=== PATIENT | female | born 1935 | race Caucasian/White ===

== ENCOUNTER 2017-09-12 10:49 | Inpatient (IN) | payer BC, OTHER ==
[~2017-09-12] VITALS: Ht 162.6 cm; Wt 67.7 kg
[2017-09-12] MEDS ORDERED: GLUC1TAB94 PO (13:05)
[2017-09-12 13:14] LABS: BASO % 0.3 %; BASO ABS # 0.04 K/uL (0-0.2); EOS % 0.6 %; EOS ABS # 0.08 K/uL (0-0.5); HEMATOCRIT 33.7 % (37-47); HEMOGLOBIN 11.2 g/dL (12.0-16.0); IG# 0.07 K/uL (0.00-0.02); LYMPH % 10.1 %; LYMPH ABS # 1.35 K/uL (1.2-3.4); MEAN CELL VOLUME 82.4 fL (80-100); MEAN CORPUSCULAR HEMOGLOBIN 27.4 pg (25-34); MEAN CORPUSCULAR HGB CONC 33.2 g/dl (32-36); MEAN PLATELET VOLUME 10.2 fL (7.4-10.4); MONO % 4.6 %; MONO ABS # 0.62 K/uL (0.11-0.59); NEUT % 83.9 %; NEUT ABS # 11.21 K/uL (1.4-6.5); PLATELET COUNT 320 K/uL (130-400); RED CELL DISTRIBUTION WIDTH CV 15.6 % (11.5-14.5); RED CELL DISTRIBUTION WIDTH SD 46.5 fL (36.4-46.3); WHITE BLOOD COUNT 13.37 K/uL (4.8-10.8)
[2017-09-12 13:36] LABS: ALBUMIN 2.9 gm/dl (3.4-5.0); CALCIUM 9.1 mg/dl (8.5-10.1); CREATININE 0.96 mg/dl (0.60-1.20); POTASSIUM 3.6 mmol/L (3.5-5.1)
[2017-09-12 13:47] LABS: TOTAL PROTEIN 7.4 gm/dl (6.4-8.2)
--- NOTE | 2017-09-12 14:11 | DIAGNOSTIC IMAGING REPORT ---
ULTRASOUND LEFT LOWER EXTREMITY VENOUS CLINICAL HISTORY: Left calf pain and swelling. COMPARISON STUDY: No priors. TECHNIQUE: Real-time, grayscale, and color Doppler sonography of the deep veins of the left lower extremity was performed from the inguinal crease to the calf. Compression and augmentation were utilized. FINDINGS: There is nearly occlusive deep venous thrombosis identified within the mid to distal superficial femoral vein, the popliteal vein, and extending into the calf within branches of the anterior tibial, posterior tibial, and peroneal veins. The common femoral and proximal superficial femoral vein are patent and normally compressible. The greater saphenous vein and the profunda femoris vein at the junction with the common femoral vein are clear. IMPRESSION: Extensive left lower extremity deep venous thrombosis as above. Electronically signed by: Lul Fu M.D. 09/12/2017 2:10 PM Dictated Date/Time: 09/12/2017 2:09 PM
[2017-09-12] MEDS ORDERED: OPTIRAY 320 IV PRN (14:15)
[2017-09-12] MEDS ORDERED: HEPARIN SOD 5000 UNIT/0.5 ML CARP IV STA (14:32)
--- NOTE | 2017-09-12 14:32 | DIAGNOSTIC IMAGING REPORT ---
(CHEST FOR PE) ANGIO WITH CLINICAL HISTORY: 82 years-old Female presenting with ^sob, elevated dimer. TECHNIQUE: Multidetector CT angiography of the chest was performed after administration of intravenous contrast. 3-D volumetric and/or maximum intensity projection (MIP) images were subsequently reconstructed for review. IV contrast: 81 mL of Optiray 320. A dose lowering technique was used consistent with the principles of ALARA (as low as reasonably achievable). COMPARISON: None. CT DOSE (mGy.cm): The estimated cumulative dose is 214.67 mGy.cm. FINDINGS: [employer] topogram: Unremarkable. Pulmonary vasculature: The study is adequate for assessment of the pulmonary vascular tree. Extensive bilateral lobar and segmental pulmonary emboli affecting every lobe. Prominent thrombus in the right interlobar artery. No thrombus in the main pulmonary artery. Main pulmonary artery is not enlarged. However, flattening of the interventricular septum. No intracardiac filling defect. No reflux of contrast into the hepatic veins. Remaining chest: On soft tissue windows, normal thyroid and thoracic inlet. No axillary, supraclavicular, hilar, or mediastinal lymphadenopathy. Atherosclerosis of the aorta. Normal heart size. Trace pericardial effusion. No pleural effusion. Calcifications in the spleen likely indicate prior granulomatous infection. Hypodensity at the right hepatic dome indeterminate but likely hepatic cyst or hamartoma. On lung windows, consolidation in the superior segment of the right lower lobe, which is peripheral. Additional dependent reticular and groundglass opacities in the lower lobes likely atelectasis. Calcified granuloma noted in the right lower lobe. Biapical scarring. Focal groundglass opacity peripherally in the superior segment of the lingula (series 4 image 132). Calcified granuloma also noted in the left lower lobe. Central airways patent. On bone windows, degenerative changes of the spine. IMPRESSION: 1. Extensive bilateral pulmonary embolus burden involving every lobe are artery and extensively in the segmental arteries. Flattening of the interventricular septum raises concern for right heart strain. 2. Focal consolidation in the superior segment of the right lower lobe raises concern for developing infarct. Minimal groundglass peripheral opacity in the lingula may also represent developing infarct. These findings were discussed with Dr. Hinson by Dr. Ward on 09/12/2017 2:26 PM. Electronically signed by: Shorty Ward M.D. 09/12/2017 2:30 PM Dictated Date/Time: 09/12/2017 2:23 PM
[2017-09-12] MEDS: HEPARIN 25,000 UNIT/500ML D5W 500 ML IV SCH (14:44)
[2017-09-12] MEDS ORDERED: MAGNESIUM HYDROXIDE SUSP 30 ML UDC PO PRN (15:00)
[2017-09-12] MEDS ORDERED: MoRPHine SULFATE 2 MG/ML CARP IV PRN (15:00)
[2017-09-12] MEDS ORDERED: ACETAMINOPHEN 325 MG TAB PO PRN (15:00)
[2017-09-12] MEDS ORDERED: ONDANSETRON INJ 2 MG/ML 2 ML VIAL IV PRN (15:00)
[2017-09-12] MEDS ORDERED: ALUMINUM/MAGNESIUM/SIMETH (MAALOX MAX) 30 ML UDC PO PRN (15:00)
[2017-09-12] MEDS ORDERED: POLYETHYLENE (MIRALAX) 17 GM PACK PO PRN (15:00)
[2017-09-12] MEDS ORDERED: NITROGLYCERIN 0.4 MG SL PER TAB CHARGE SL PRN (15:00)
--- NOTE | 2017-09-12 15:17 | History and Physical ---
History & Physical Date & Time of Service: Sep 12, 2017 at 15:05 Chief Complaint: Swelling Of Leg Primary Care Physician: Tegan Persaud M.D. History of Present Illness Source: patient, family (daughters at bedside), clinic records, hospital records Patient is a pleasant 82 y/o female, with no significant PMHx, who presented to the ED from PCP office due to LLE swelling. Roughly 3 weeks ago, patient was doing water aerobics. Shortly after, she noticed LLE calf pain. She thought maybe she pulled a muscle. She continued to stay active through water aerobics and bowling- she thought the minimal improvement in LLE pain was still due to a pulled muscle. On Monday, she started to notice dyspnea on exertion. Her daughters prompted her to seek medical attention today. She notes decreased appetite over the last few weeks. Denies any PMHx. Denies family history of blood clots. Denies any recent long travels or injuries to [facility]. Patient denies any fever, chills, sweats, lightheadedness, dizziness, vision changes, CP, palpitations, edema, wheezing, cough, abdominal pain, nausea, vomiting, diarrhea , urinary symptoms, melena, numbness/tingling, weakness, joint pain, anxiety/ depression, active bleeding, or new skin discoloration/changes. Past Medical/Surgical History Medical Problems: None Surgical history: Thyroid cyst removal Family History FH: diabetes mellitus Social History Smoking Status: Never Smoker Alcohol Use: none Allergies Coded Allergies: No Known Allergies (Unverified , 09/12/17) Home Medications Scheduled Jkdnikkwcnm-Ijyqejmdcay-Qmkgrw ([employer] Ad), 1 TAB PO QAM Physical Exam Vital Signs Date Time Temp Pulse Resp B/P (MAP) Pulse Ox O2 Delivery O2 Flow Rate FiO2 09/12/17 14:49 96 18 159/99 92 Room Air 09/12/17 12:58 80 18 138/75 97 Room Air 09/12/17 11:01 36.6 115 20 145/79 97 Room Air General Appearance: no apparent distress Head: normocephalic, atraumatic Eyes: normal inspection, PERRL ENT: hearing grossly normal Neck: supple Respiratory/Chest: lungs clear, no respiratory distress, no accessory muscle use Cardiovascular: regular rate, rhythm Abdomen/GI: normal bowel sounds, non tender, soft Back: normal inspection Extremities/Musculoskelatal: + calf tenderness (LLE), + swelling (+1 pitting edema of LLE ) Neurologic/Psych: alert, normal mood/affect, oriented x 3 Skin: normal color, warm/dry, no rash Diagnostics Laboratory Results Results Past 24 Hours Test 09/12/17 12:45 09/12/17 12:55 Range/Units White Blood Count 13.37 4.8-10.8 K/uL Red Blood Count 4.09 4.2-5.4 M/uL Hemoglobin 11.2 12.0-16.0 g/dL Hematocrit 33.7 37-47 % Mean Corpuscular Volume 82.4 80-100 fL Mean Corpuscular Hemoglobin 27.4 25-34 pg Mean Corpuscular Hemoglobin Concent 33.2 32-36 g/dl Platelet Count 320 130-400 K/uL Mean Platelet Volume 10.2 7.4-10.4 fL Neutrophils (%) (Auto) 83.9 % Lymphocytes (%) (Auto) 10.1 % Monocytes (%) (Auto) 4.6 % Eosinophils (%) (Auto) 0.6 % Basophils (%) (Auto) 0.3 % Neutrophils # (Auto) 11.21 1.4-6.5 K/uL Lymphocytes # (Auto) 1.35 1.2-3.4 K/uL Monocytes # (Auto) 0.62 0.11-0.59 K/uL Eosinophils # (Auto) 0.08 0-0.5 K/uL Basophils # (Auto) 0.04 0-0.2 K/uL RDW Standard Deviation 46.5 36.4-46.3 fL RDW Coefficient of Variation 15.6 11.5-14.5 % Immature Granulocyte % (Auto) 0.5 % Immature Granulocyte # (Auto) 0.07 0.00-0.02 K/uL Prothrombin Time 10.9 9.0-12.0 SECONDS Prothromb Time International Ratio 1.0 0.9-1.1 D-Dimer 4670 0-500 ug/L FEU Sodium Level 131 136-145 mmol/L Potassium Level 3.6 3.5-5.1 mmol/L Chloride Level 97 98-107 mmol/L Carbon Dioxide Level 25 21-32 mmol/L Anion Gap 9.0 3-11 mmol/L Blood Urea Nitrogen 8 7-18 mg/dl Creatinine 0.96 0.60-1.20 mg/dl Est Creatinine Clear Calc Drug Dose 44.4 ml/min Estimated GFR () 64.7 Estimated GFR (Non- 55.9 BUN/Creatinine Ratio 8.5 10-20 Random Glucose 105 70-99 mg/dl Calcium Level 9.1 8.5-10.1 mg/dl Magnesium Level 2.5 1.8-2.4 mg/dl Total Bilirubin 0.4 0.2-1 mg/dl Aspartate Amino Transf (AST/SGOT) 23 15-37 U/L Alanine Aminotransferase (ALT/SGPT) 19 12-78 U/L Alkaline Phosphatase 81 45-117 U/L Troponin I 0.018 0-0.045 ng/ml Pro-B-Type Natriuretic Peptide 4214 0-1800 pg/ml Total Protein 7.4 6.4-8.2 gm/dl Albumin 2.9 3.4-5.0 gm/dl Globulin 4.5 2.5-4.0 gm/dl Albumin/Globulin Ratio 0.6 0.9-2 Thyroid Stimulating Hormone (TSH) 1.780 0.300-4.500 uIu/ml Urine Color YELLOW Urine Appearance CLEAR CLEAR Urine pH 7.5 4.5-7.5 Urine Specific [place] 1.007 1.000-1.030 Urine Protein NEG NEG Urine Glucose (UA) NEG NEG Urine Ketones NEG NEG Urine Occult Blood NEG NEG Urine Nitrite NEG NEG Urine Bilirubin NEG NEG Urine Urobilinogen NEG NEG Urine Leukocyte Esterase TRACE NEG Urine WBC (Auto) 1-5 0-5 /hpf Urine RBC (Auto) 0-4 0-4 /hpf Urine Hyaline Casts (Auto) 1-5 0-5 /lpf Urine Epithelial Cells (Auto) 0-5 0-5 /lpf Urine Bacteria (Auto) NEG NEG Diagnostic Radiology (CHEST FOR PE) ANGIO WITH CLINICAL HISTORY: 82 years-old Female presenting with ^sob, elevated dimer. TECHNIQUE: Multidetector CT angiography of the chest was performed after administration of intravenous contrast. 3-D volumetric and/or maximum intensity projection (MIP) images were subsequently reconstructed for review. IV contrast: 81 mL of Optiray 320. A dose lowering technique was used consistent with the principles of ALARA (as low as reasonably achievable). COMPARISON: None. CT DOSE (mGy.cm): The estimated cumulative dose is 214.67 mGy.cm. FINDINGS: [employer] topogram: Unremarkable. Pulmonary vasculature: The study is adequate for assessment of the pulmonary vascular tree. Extensive bilateral lobar and segmental pulmonary emboli affecting every lobe. Prominent thrombus in the right interlobar artery. No thrombus in the main pulmonary artery. Main pulmonary artery is not enlarged. However, flattening of the interventricular septum. No intracardiac filling defect. No reflux of contrast into the hepatic veins. Remaining chest: On soft tissue windows, normal thyroid and thoracic inlet. No axillary, supraclavicular, hilar, or mediastinal lymphadenopathy. Atherosclerosis of the aorta. Normal heart size. Trace pericardial effusion. No pleural effusion. Calcifications in the spleen likely indicate prior granulomatous infection. Hypodensity at the right hepatic dome indeterminate but likely hepatic cyst or hamartoma. On lung windows, consolidation in the superior segment of the right lower lobe, which is peripheral. Additional dependent reticular and groundglass opacities in the lower lobes likely atelectasis. Calcified granuloma noted in the right lower lobe. Biapical scarring. Focal groundglass opacity peripherally in the superior segment of the lingula (series 4 image 132). Calcified granuloma also noted in the left lower lobe. Central airways patent. On bone windows, degenerative changes of the spine. IMPRESSION: 1. Extensive bilateral pulmonary embolus burden involving every lobe are artery and extensively in the segmental arteries. Flattening of the interventricular septum raises concern for right heart strain. 2. Focal consolidation in the superior segment of the right lower lobe raises concern for developing infarct. Minimal groundglass peripheral opacity in the lingula may also represent developing infarct. These findings were discussed with Dr. Hinson by Dr. Ward on 09/12/2017 2:26 PM. Electronically signed by: Shorty Ward M.D. 09/12/2017 2:30 PM Dictated Date/Time: 09/12/2017 2:23 PM The status of this report is Signed. Draft = Not yet reviewed or approved by Radiologist. Signed = Reviewed and approved by Radiologist. ULTRASOUND LEFT LOWER EXTREMITY VENOUS CLINICAL HISTORY: Left calf pain and swelling. COMPARISON STUDY: No priors. TECHNIQUE: Real-time, grayscale, and color Doppler sonography of the deep veins of the left lower extremity was performed from the inguinal crease to the calf. Compression and augmentation were utilized. FINDINGS: There is nearly occlusive deep venous thrombosis identified within the mid to distal superficial femoral vein, the popliteal vein, and extending into the calf within branches of the anterior tibial, posterior tibial, and peroneal veins. The common femoral and proximal superficial femoral vein are patent and normally compressible. The greater saphenous vein and the profunda femoris vein at the junction with the common femoral vein are clear. IMPRESSION: Extensive left lower extremity deep venous thrombosis as above. Electronically signed by: Lul Fu M.D. 09/12/2017 2:10 PM Dictated Date/Time: 09/12/2017 2:09 PM The status of this report is Signed. Draft = Not yet reviewed or approved by Radiologist. Signed = Reviewed and approved by Radiologist. EKG REBECCA STEPHENS ID:[id number] 12-SEP-2017 12:31:24 [facility] Poor data quality, interpretation may be adversely affected Normal sinus rhythm Normal ECG No previous ECGs available 25mm/s 10mm/mV 150Hz 8.0 SP2 12SL 241 BERNIE: 0 Referred by: Referred Self Unconfirmed Vent. rate 84 BPM NM interval 158 ms QRS duration 88 ms QT/QTc 366/432 ms P-R-T axes 85 86 29 1935 (82 yr) Female Room: Loc:15 Minute Clerk:BINH Ortiz ind: Impression Assessment and Plan Patient is a pleasant 82 y/o female, with no significant PMHx, who presented to the ED from PCP office due to LLE swelling. LLE DVT, extensive bilateral PE: - Admit to tele for cardiac monitoring - Trend cardiac enzymes - Obtain ECHO to asses for R heart strain - IV Heparin gtt with eventual transition to oral anticoagulation if remains hemodynamically stable - Will keep NPO after midnight in case surgical intervention required - Consult vascular surgery, appreciate recommendations Code status: LEVEL I, FULL Dispo: From home- CM consulted Resuscitation Status LEVEL I, FULL VTE Prophylaxis Will order VTE Prophylaxis: Yes History Patient seen and examined, chart reviewed, case discussed with JAYANT Schroeder and I agree with her assessment and plan as documented above. Briefly, patient is an 82yo C female with no significant past medical or surgical history who found to have extensive nearly occlusive DVT of the LLE as well as bilateral PEs. Patient feeling well. Complaining of some calf tightness and AUGUSTINE. Otherwise no complaints. She was started on a heparin gtt in the ER. On physical exam she is afebrile, HD stable, NAD. HEENT exam is unremarkable. Heart +S1/S2, regular, no m/r/g, lungs are clear, abdomen is benign, LLE with edema and warmth to the knee. Labs are significant for mild leukocytosis at 13.37, Hg=11.2 and Hct=33.7. Elevated d-dimer at 4670 and BNP at 4214. Imaging revealed extensive clot burden in bilateral pulmonary vasculature as well as LLE. Concern for flattening of the interventricular septum. EKG with NSR 84bpm, normal axis and intervals, some T wave flattening and inversion in V1-V4 which could be indicative of right heart strain. Impression 82yo female with no significant past medical or surgical history found with large LLE DVT and bilateral PEs with question of right heart strain. Presently asymptomatic and HD stable. -Check 2D echo, trend troponins, continue heparin gtt, Vascular surgery consult , low threshold for lytics should she decompensate. Remainder of plan as above
[2017-09-12 16:50] VITALS: BP 164/98; PULSE 130; TEMP 36.7; O2SAT 92
[2017-09-12 17:29] VITALS: BP 164/98; PULSE 126; TEMP 36.7; O2SAT 92; Ht 162.6 cm; Wt 67.7 kg
--- NOTE | 2017-09-12 17:30 | ECHOCARDIOGRAM REPORT ---
*NOTICE TO RECEIVING CONSTITUTION PARTY AGENCY This information is strictly Confidential and protected under [place] law. [place] law prohibits you from making any further disclosure of this information unless further disclosure is expressly permitted by the written consent of the person to whom it pertains or is authorized by law. A general authorization for the release of medical or other information is not sufficient for this purpose. Hospital accepts no responsibility if the information is made available to any other person, INCLUDING THE PATIENT. Interpretation Summary * Name: REBECCA STEPHENS Study Date: 09/12/2017 03:31 PM BP: 159/99 mmHg * Patient Location: C.EDB HR: 89 * : 1935 (M/d/yyyy) Gender: Female Height: 64 in * Age: 82 yrs Ethnicity: [place] Weight: 150 lb * Ordering Physician: Shaista Schroeder * Referring Physician: Self, Referred * Performed By: Juliann Quiñones RCS * * Reason For Study: PE / RIGHT HEART STRAIN * BSA: 1.7 m2 * -- Conclusions -- * 1. Normal LV size. Borderline concentric LVH. * 2. Normal LV systolic function. LVEF 60-65%. Flattened septum consistent with RV volume overload. * 3. Normal RV size normal. RV function normal by TAPSE but RV free wall appears hypokinetic. * 4. Mild TR. PASP < 25 mmHg. RA 3 mmHg * 5. Small pericardial effusion without signs of tamponade. * 6. No prior studies for comparison. Procedure Details * A complete two-dimensional transthoracic echocardiogram was performed (2D, M-mode, Doppler and color flow Doppler). Left Ventricle * The left ventricle is grossly normal size. * There is borderline concentric left ventricular hypertrophy. * Ejection Fraction = 60-65%. * Flattened septum is consistent with RV volume overload. Right Ventricle * The right ventricle is grossly normal size. * The right ventricular systolic function is normal as assessed by tricuspid annular plane systolic excursion (TAPSE) (normal >1.5 cm). Atria * The left atrial size is normal. * The right atrium is mildly dilated. * Doppler suggests right to left interatrial shunt. Mitral Valve * The mitral valve is grossly normal. * There is no mitral valve stenosis. * There is trace mitral regurgitation. Tricuspid Valve * There is no tricuspid stenosis. * There is mild tricuspid regurgitation. Aortic Valve * The aortic valve opens well. * The aortic valve is trileaflet. * No hemodynamically significant valvular aortic stenosis. * There is no significant aortic regurgitation. Pulmonic Valve * The pulmonary valve is inadequately visualized, but the Doppler data is adequate for interpretation. * Pulmonic stenosis is absent. * Trace pulmonic valvular regurgitation. Pericardium/Pleural * Small pericardial effusion. * There are no echocardiographic indications of cardiac tamponade. Right Ventricle * RV free wall hypokinetic. Great Vessels * Normal inferior vena cava size and collapsability with sniff indicates a normal right atrial pressure of 3 mmHg MMode 2D Measurements and Calculations IVSd 1.1 cm IVSs 1.5 cm LVIDd 3.2 cm LVIDs 2.3 cm LVPWd 0.94 cm LVPWs 1.2 cm IVS/LVPW 1.2 FS 29.9 % EDV(Teich) 42.5 ml ESV(Teich) 17.7 ml EF(Teich) 58.3 % EDV(cubed) 34.3 ml ESV(cubed) 11.8 ml EF(cubed) 65.5 % % IVS thick 31.9 % % LVPW thick 22.3 % LV mass(C)d 96.0 grams LV mass(C)dI 55.5 grams/m\S\2 LV mass(C)s 88.4 grams LV mass(C)sI 51.1 grams/m\S\2 SV(Teich) 24.8 ml SI(Teich) 14.3 ml/m\S\2 SV(cubed) 22.5 ml SI(cubed) 13.0 ml/m\S\2 Ao root diam 2.7 cm Ao root area 5.8 cm\S\2 LA dimension 2.7 cm LA/Ao 0.98 LVOT diam 2.0 cm LVOT area 3.1 cm\S\2 LVAd ap4 26.9 cm\S\2 LVLd ap4 7.2 cm EDV(MOD-sp4) 83.3 ml EDV(sp4-el) 85.8 ml LVAs ap4 17.5 cm\S\2 LVLs ap4 5.9 cm ESV(MOD-sp4) 43.3 ml ESV(sp4-el) 43.7 ml EF(MOD-sp4) 48.1 % EF(sp4-el) 49.1 % LVAd ap2 21.8 cm\S\2 LVLd ap2 6.6 cm EDV(MOD-sp2) 60.1 ml EDV(sp2-el) 60.5 ml LVAs ap2 14.9 cm\S\2 LVLs ap2 5.7 cm ESV(MOD-sp2) 32.0 ml ESV(sp2-el) 33.4 ml EF(MOD-sp2) 46.7 % EF(sp2-el) 44.7 % LVLd %diff -7.58 % EDV(MOD-bp) 73.0 ml LVLs %diff -4.98 % ESV(MOD-bp) 37.7 ml EF(MOD-bp) 48.3 % SV(MOD-sp4) 40.0 ml SI(MOD-sp4) 23.1 ml/m\S\2 SV(MOD-sp2) 28.0 ml SI(MOD-sp2) 16.2 ml/m\S\2 SV(MOD-bp) 35.3 ml SI(MOD-bp) 20.4 ml/m\S\2 SV(sp4-el) 42.1 ml SI(sp4-el) 24.3 ml/m\S\2 SV(sp2-el) 27.0 ml SI(sp2-el) 15.6 ml/m\S\2 Doppler Measurements and Calculations MV E max elizabeth 64.2 cm/sec MV A max elizabeth 104.1 cm/sec MV E/A 0.62 MV P1/2t max elizabeth 64.7 cm/sec MV P1/2t 70.1 msec MVA(P1/2t) 3.1 cm\S\2 MV dec slope 270.4 cm/sec\S\2 MV dec time 0.20 sec PI max elizabeth 188.9 cm/sec PI max PG 14.3 mmHg PI dec slope 381.2 cm/sec\S\2 PI P1/2t 145.2 msec TR max elizabeth 184.6 cm/sec
[2017-09-12 19:43] VITALS: BP 110/65; PULSE 106; TEMP 36.7; O2SAT 92
[2017-09-12 20:39] LABS: CKMB 3.6 ng/ml (0.5-3.6)
[2017-09-12 20:43] LABS: PTT PATIENT 55.1 SECONDS (21.0-31.0)
[2017-09-12] MEDS: SODIUM CHLORIDE 0.9% 1000ML 1,000 ML IV SCH (23:34)
[2017-09-12 23:38] VITALS: BP 103/65; PULSE 83; TEMP 36.5; O2SAT 94
[2017-09-13] VITALS (11 sets, daily range): BP systolic 118–146; BP diastolic 60–83; PULSE 68–83; TEMP 36.3–36.9; O2SAT 95–99
[2017-09-13 04:03] LABS: HEMATOCRIT 30.7 % (37-47); HEMOGLOBIN 10.3 g/dL (12.0-16.0); MEAN CORPUSCULAR HEMOGLOBIN 27.8 pg (25-34); MEAN CORPUSCULAR HGB CONC 33.6 g/dl (32-36); MEAN PLATELET VOLUME 9.8 fL (7.4-10.4); PLATELET COUNT 266 K/uL (130-400); RED CELL DISTRIBUTION WIDTH CV 15.7 % (11.5-14.5); RED CELL DISTRIBUTION WIDTH SD 47.1 fL (36.4-46.3); WHITE BLOOD COUNT 12.48 K/uL (4.8-10.8)
[2017-09-13 04:28] LABS: BLOOD UREA NITROGEN 7 mg/dl (7-18); CALCIUM 8.9 mg/dl (8.5-10.1); CARBON DIOXIDE 27 mmol/L (21-32); CREATININE 0.93 mg/dl (0.60-1.20); GLUCOSE 116 mg/dl (70-99); POTASSIUM 4.7 mmol/L (3.5-5.1); SODIUM 136 mmol/L (136-145)
[2017-09-13 04:36] LABS: CKMB 3.1 ng/ml (0.5-3.6)
[2017-09-13 04:39] LABS: PTT PATIENT 49.9 SECONDS (21.0-31.0)
[2017-09-13] MEDS: SODIUM CHLORIDE 0.9% 1000ML 1,000 ML IV SCH ×2 (08:38→18:35)
[2017-09-13] MEDS: HEPARIN 25,000 UNIT/500ML D5W 500 ML IV SCH (13:15)
--- NOTE | 2017-09-13 13:35 | Surgery Consultation ---
Consultation Date of Service Sep 13, 2017. (Blossom Perry PA-C) Chief Complaint DVT, PE (Blossom Perry PA-C) History of Present Illness The patient is a 82 year old female without significant medical hx, admitted for extensive LLE DVT and BL PE with right heart strain, seen in consultation today for IVC filter insertion. Pt denies any previous hx of DVT or PE, also denies family hx of DVT. Nonsmoker. States she noted LLE edema and calf tenderness about 2-3 wks ago after water aerobics which did not improve. Noted AUGUSTINE yesteday and came to [facility] ED for eval. Denies MATSON, fever, chills, chest pain presently, SOB at rest, abd pain, N/V, rest pain, claudication, other complaint. (Blossom Perry, MAITE) Vitals Vital Signs Past 12 Hours Date Time Temp Pulse Resp B/P (MAP) Pulse Ox O2 Delivery O2 Flow Rate FiO2 09/13/17 11:52 36.7 76 18 123/74 (90) 97 Room Air 09/13/17 08:00 Room Air 09/13/17 07:15 36.6 75 20 118/61 (80) 98 Room Air 09/13/17 04:00 Room Air 09/13/17 03:56 36.4 68 18 125/70 (88) 96 Room Air (Blossom Perry, MAITE) Allergies Coded Allergies: No Known Allergies (Unverified , 09/12/17) Home Medications Scheduled Byrqsdravnh-Dklzrgzlrla-Dwkjvh ([facility]), 1 TAB PO QAM Problem List Medical Problems: (1) Bilateral pulmonary embolism (2) Deep vein thrombosis (DVT) of left lower extremity (3) No active medical problems (Blossom Perry, MAITE) Surgical / Medical History Hx Cardiac Surgery: No Hx Abdominal Surgery: No Hx Cancer Surgery: No Hx Thoracic Surgery: No Hx Orthopedic: No Hx Urinary Tract Surgery: No HX Other Surgery: Yes (Blossom Perry, MAITE) Family History FH: diabetes mellitus (Blossom Perry PA-C) FH: diabetes mellitus (Henry Edwards M.D.) Social History Smoking Status: Never Smoker Hx Alcohol Use - Type & Amnt: No Hx Substance Use -Type & Amnt: No (Blossom Perry, RICARDOC) Review of Systems Constitutional: No chills, No fever, No malaise Skin: No change in color Eyes: No visual changes ENMT: No sore throat Respiratory: + AUGUSTINE, No cough, No hemoptysis, No orthopnea, No short of breath Cardiovascular: + edema, No chest pain, No chest tightness, No syncope, No intermittent claudication Gastrointestinal: No abdominal pain, No diarrhea, No nausea, No vomiting Genitourinary - Female: No dysuria, No hematuria Neurologic: No dizziness, No headache, No numbness, No tingling (Blossom Perry, RICARDOC) Physical Exam Constitutional: General Apperance: heathly-appearing, well-nourished, well-developed Level of Distress: NAD Psychiatric: Mental Status: active & alert, normal mood, normal affect Orientation: oriented except where noted, to time, to place, to person Memory: recent memory normal, remote memory normal Head: normocephalic, atraumatic Eyes: EOM: EOMI ENMT: normal ENT inspection, hearing grossly normal Neck: supple, trachea midline Lungs: Respiratory effort: no dyspnea Auscultation: no wheezing, no rales/crackles, no rhonchi Cardiovascular: Apical Impulse: not displaced Heart Auscultation: RRR, no rubs, no gallops Peripheral Pulses: Pulses: full and equal, in all extremities except if noted Bruits: none appreciated Carotid Pulse: normal on the left, normal on the right Brachial Pulses: normal on the left, normal on the right Radial Pulse: normal on the left, normal on the right Femoral Pulse: normal on the left, normal on the right Posterior Tibialis Pulse: normal on the left, normal on the right Dorsalis Pedis Pulse: normal on the left, normal on the right Abdomen: Bowel Sounds: normal Inspection & Palpation: soft, non-distended, no tenderness, guarding & rebound Musculoskeletal: normal strength (5/5 throughout), normal tone Extremities: Upper Right: no cyanosis, no edema, no varicosities Upper Left: no cyanosis, no edema, no varicosities Lower Right: no cyanosis, no edema, no varicosities Lower Left: no cyanosis, no varicosities, edema (+1) Neurologic: Cranial Nerves: grossly intact Sensation: grossly intact (Blossom Perry, PA-C) Assessment and Plan ASSESSMENT and PLAN: LLE extensive DVT BL PE with right heart strain Pt already anticoagulated on heparin, however, d/t to R heart strain, recommend temporary IVC filter insertion today. Discussed with pt by Dr Edwards , pt agreeable. Family present as well. Will see in office in 2-3 months to discuss removal. (Blossom Perry, PA-C) Patient was seen, examined, and chart reviewed. Agree with exam and treatment plan of the Vascular PA. Patient for insertion of filter today. I have discussed the risks options and benefits of the procedure with the patient. The patient understands the risks options and benefits and agrees to the procedure. (Henry Edwards M.D.)
[2017-09-13] MEDS ORDERED: MIDAZOLAM HCL 1 MG/ML 2ML VIAL ONE (13:44)
[2017-09-13] MEDS ORDERED: FENTANYL CITRATE INJ 50 MCG/1 ML 2 ML VIAL ONE (13:44)
[2017-09-13] MEDS ORDERED: CEFAZOLIN SOD 1000MG/7.5 ML IV PUSH IV SCH (13:45)
--- NOTE | 2017-09-13 13:47 | Pre Sedation Assessment ---
Pre Sedation Assessment General Date of Sedation: Sep 13, 2017. Vital Signs Past 12 Hours Date Time Temp Pulse Resp B/P (MAP) Pulse Ox O2 Delivery O2 Flow Rate FiO2 09/13/17 12:00 Room Air 09/13/17 11:52 36.7 76 18 123/74 (90) 97 Room Air 09/13/17 08:00 Room Air 09/13/17 07:15 36.6 75 20 118/61 (80) 98 Room Air 09/13/17 04:00 Room Air 09/13/17 03:56 36.4 68 18 125/70 (88) 96 Room Air Review Cardiovascular: regular rate, rhythm Lungs: lungs clear Pre-Sedation Airway Assessment Smoking Status: Never Smoker Hx of Sleep Apnea: No Short Thick Neck: No Thyro-mental Distance: > 3 Finger Breadths Oral Cavity: Dentures Mallampati Classification: Class II ASA Classification: Class II NPO Status Date of Last Intake of Fluids: Sep 12, 2017 Time of Last Intake of Fluids: 2100 Date of Last Intake of Solids: Sep 12, 2017 Time of Last Intake of Solids: 1800 Procedure Planning Contraindications for Sedation: None Current Medications Reviewed: Yes Notes The planned sedation has been discussed with the patient. Informed Consent was obtained. I have identified the patient, determined the appropriateness of sedation and have assessed the patient immediately prior to the procedure. All medicine(s) and interventions are by my order.
[2017-09-13] MEDS ORDERED: FENTANYL CITRATE INJ 50 MCG/1 ML 2 ML VIAL IV ONE (14:22)
[2017-09-13] MEDS ORDERED: MIDAZOLAM HCL 1 MG/ML 2ML VIAL IV ONE (14:22)
[2017-09-13] MEDS ORDERED: LIDOCAINE HCL 1% 20 ML VIAL INJ ONE (14:24)
[2017-09-13] MEDS ORDERED: IODIXANOL (VISIPAQUE) 270 MG/ML 50ML FLUSH ONE (14:50)
--- NOTE | 2017-09-13 14:52 | [facility] Post Operative Brief Note ---
Immediate Operative Summary Operative Date Sep 13, 2017. Pre-Operative Diagnosis left lower extremity deep vein thrombosis, bilateral pulmonary emboli, right heart strain Post-Operative Diagnosis left lower extremity deep vein thrombosis, bilateral pulmonary emboli, right heart strain Procedure(s) Performed Insertion of Vena Cava Filter, Right Jugular Approach, Ultrasound Localization Of Right Internal Jugular Vein, Fluoroscopy For Positioning, Moderate Concious Sedation [address] Edwards Block Tester Surgeon(s) Amada Thakkar MD Estimated Blood Loss 2 ml Findings Consistent with Post-Op Diagnosis Specimens none Drains None Anesthesia Type IV Sedat Cons RN Only Complication(s) none Disposition Accompanied Pt To Recover: no Disposition:
--- NOTE | 2017-09-13 14:52 | Post Sedation Assessment ---
Post Sedation Assessment General Date of Sedation Sep 13, 2017. Vital Signs: Vital Signs Past 12 Hours Date Time Temp Pulse Resp B/P (MAP) Pulse Ox O2 Delivery O2 Flow Rate FiO2 09/13/17 14:42 82 15 150/79 100 Oxymask 6 09/13/17 14:37 Oxymask 6 09/13/17 14:32 Oxymask 6 09/13/17 14:27 Oxymask 6 09/13/17 14:22 100 Oxymask 6 09/13/17 14:20 86 13 157/75 95 Oxymask 2 09/13/17 12:00 Room Air 09/13/17 11:52 36.7 76 18 123/74 (90) 97 Room Air 09/13/17 08:00 Room Air 09/13/17 07:15 36.6 75 20 118/61 (80) 98 Room Air 09/13/17 04:00 Room Air 09/13/17 03:56 36.4 68 18 125/70 (88) 96 Room Air Post Procedure Recovery Score Activity: (2) Moves 4 extremities * Respiration: (2) Deep breath/cough Circulation: (2) +/-20% PreAnes Value Consciousness: (1) Arouseable (by name) Oxygen Saturation: (1) O2 needed for >90% Post Anesthesia Score: 8 Discharge Sedation Level of Care: Fast Track Phase II Post Sedation Plan On clinical assessment, the patient appears to have tolerated the sedation without complications. Patient is recovering as anticipated. Patient will continue to be monitored by nursing and may be discharged when sedation discharge criteria are met per below protocol. Upon Completions of procedure and additional 15 minutes continue every 5 minute vital signs and the P.A.R. score; then discharge to a Phase I or Fast Track to Phase II per the following guidelines: * Discharge Patient to appropriate Phase II area if PAR is 8 or greater or return to pre- procedure baseline. The post - procedure orders will be as directed. * If PAR score is less than 8 or not return to pre-procedure baseline then patient will follow Phase I monitoring till PAR is reached for Phase II. The Phase I may be done in procedure room or may call to secure a Phase I area. * If naloxone or flumazenil are used for reversal, hold in Phase I for an additional 60 -120 minutes before discharge to Phase II. Please call the Sedation Physician to re-evaluate and complete post-note for discharge to Phase II area. Do NOT discharge from procedure sedation or Phase 1 until post- sedation evaluation note is complete by procedure /sedation MD Sedation Discharge Instructions to be given to the patient at discharge to home.
--- NOTE | 2017-09-13 15:32 | DIAGNOSTIC IMAGING REPORT ---
DATE OF PROCEDURE: 09/13/2017 PREOPERATIVE DIAGNOSES: Left lower extremity deep vein thrombosis, bilateral pulmonary embolus, right heart strain. POSTOPERATIVE DIAGNOSES: Left lower extremity deep vein thrombosis, bilateral pulmonary embolus, right heart strain. PROCEDURE: Ultrasound guided right IJ access, cavogram, placement of infrarenal IVC filter, moderate sedation 24 minutes. SURGEON: Dr. Henry Edwards. HEEL SEAT POUNDER: Dr. Amada Thakkar. ANESTHESIA: Moderate sedation 24 minutes plus local. ESTIMATED BLOOD LOSS: 2 mL COMPLICATIONS: None. INDICATIONS: Mrs. Ruth Mathias is an 82-year-old woman who was recently found to have a left lower extremity DVT, bilateral PEs, and right heart strain. For this reason, she was recommended to undergo IVC filter placement. Risks, benefits and alternatives were discussed with the patient and she consented to the procedure. DESCRIPTION OF PROCEDURE: The patient was taken to the endovascular suite and placed in supine position. Her right neck was assessed with ultrasound and her right IJ appeared large and patent. Right neck and chest were prepped and draped in the usual sterile fashion. A safety timeout was performed and the patient, procedure, and sidedness were correctly identified. Local anesthesia was used to anesthetize the skin overlying the right IJ. Ultrasound was again used to identify the right IJ and it was accessed with an 18-gauge access needle under ultrasound guidance. A 0.035 angled Glidewire was placed through the needle and into the right heart. Several attempts were made to adjust the wire into the IVC were unsuccessful. A dilator was placed over the wire and removed. A 9 Colombian sheath was placed over the wire and the dilator removed. An angled glide catheter was brought onto the field and placed over the wire. This was used to direct the wire down the IVC. The wire was placed in the right common iliac vein. The glide catheter was removed and the filter sheath was placed through the 9 Colombian sheath over the wire and down into the IVC. Wire and dilator were removed and a venacavogram was obtained. This confirmed the location of the bilateral renal veins. Filter was then placed through the sheath and positioned below the renal veins. Filter was deployed without difficulty. All sheaths and catheters were removed and manual pressure was held over the IJ access site for approximately 5 minutes with good hemostasis. A sterile dressing was applied. Patient was transferred to the recovery area in stable condition. She tolerated the procedure well and there were no immediate complications. Dr. Henry Edwards was present for the entire procedure.
--- NOTE | 2017-09-13 23:12 | Progress Note ---
Subjective Date of Service: Sep 13, 2017. Subjective Pt evaluation today including: conversation w/ patient, physical exam 82 yo female reports feeling well. She has no complaints. patient denies any dizziness, SOB, chest nancy. Patient reports she only gets SOB when she walks up hill. She reports the SOB only began in past week. Patient denies any fever, chills. Review of Systems Constitutional: No fever Eyes: No worsening of vision ENT: No hearing loss Respiratory: No cough Cardiac: No chest pain Abdomen: No pain Musculoskeletal: No joint pain Neurologic: No memory loss Psychiatric: No depression symptoms Heme: No abnormal bleeding/bruising Endo: No fatigue Skin: No rash All Other Systems: Reviewed and Negative Medications Current Inpatient Medications Medications (Trade) Dose Ordered Sig/Ramila Route Start Time Stop Time Status Last Admin Dose Admin Ioversol (Optiray 320) 125 ml UD PRN IV 09/12/17 14:15 09/16/17 14:14 Heparin Sodium/ Dextrose 500 ml @ 22 mls/hr [id number] IV 09/12/17 14:30 10/12/17 14:29 09/13/17 13:15 22 MLS/HR Acetaminophen (Tylenol Tab) 650 mg Q4H PRN PO 09/12/17 15:00 10/12/17 14:59 Al Hydrox/Mg Hydrox/Simethicone (Maalox Max Susp) 15 ml Q4H PRN PO 09/12/17 15:00 10/12/17 14:59 Magnesium Hydroxide (Milk Of Magnesia Susp) 30 ml Q12H PRN PO 09/12/17 15:00 10/12/17 14:59 Ondansetron HCl (Zofran Inj) 4 mg Q6H PRN IV 09/12/17 15:00 10/12/17 14:59 Nitroglycerin (Nitrostat Tab) 0.4 mg UD PRN SL 09/12/17 15:00 10/12/17 14:59 Morphine Sulfate (MoRPHine SULFATE INJ) 2 mg Q30M PRN IV 09/12/17 15:00 09/26/17 14:59 Polyethylene (Miralax Powder Packet) 17 gm DAILY PRN PO 09/12/17 15:00 10/12/17 14:59 Sodium Chloride 1,000 ml @ 100 mls/hr Q10H IV 09/13/17 00:00 10/13/17 00:00 09/14/17 04:02 100 MLS/HR Objective Vital Signs Date Time Temp Pulse Resp B/P (MAP) Pulse Ox O2 Delivery O2 Flow Rate FiO2 09/13/17 20:15 36.9 74 18 131/81 (98) 96 Room Air 09/13/17 20:00 Room Air 09/13/17 19:15 36.6 71 18 145/83 (103) 96 Room Air 09/13/17 17:24 36.5 83 18 142/73 (96) 96 Room Air 09/13/17 16:15 36.3 80 20 118/60 (79) 98 Room Air 09/13/17 16:15 36.4 68 18 142/73 (96) 99 Room Air 09/13/17 16:00 Room Air 09/13/17 15:45 36.4 71 18 146/72 (96) 97 Room Air 09/13/17 15:15 36.4 74 18 136/75 (95) 98 Room Air 09/13/17 15:01 89 16 171/85 98 Room Air 09/13/17 14:56 98 Room Air 09/13/17 14:51 94 Room Air 09/13/17 14:46 100 Oxymask 6 09/13/17 14:42 82 15 150/79 100 Oxymask 6 09/13/17 14:37 Oxymask 6 09/13/17 14:32 Oxymask 6 09/13/17 14:27 Oxymask 6 09/13/17 14:22 100 Oxymask 6 09/13/17 14:20 86 13 157/75 95 Oxymask 2 09/13/17 12:00 Room Air 09/13/17 11:52 36.7 76 18 123/74 (90) 97 Room Air 09/13/17 08:00 Room Air 09/13/17 07:15 36.6 75 20 118/61 (80) 98 Room Air 09/13/17 04:00 Room Air 09/13/17 03:56 36.4 68 18 125/70 (88) 96 Room Air 09/13/17 00:05 Room Air 09/12/17 23:38 36.5 83 18 103/65 (78) 94 Room Air Physical Exam Comments: General Appearance: no apparent distress Head: normocephalic, atraumatic Eyes: normal inspection, PERRL ENT: hearing grossly normal Neck: supple Respiratory/Chest: lungs clear, no respiratory distress, no accessory muscle use Cardiovascular: regular rate, rhythm Abdomen/GI: normal bowel sounds, non tender, soft Back: normal inspection Extremities/Musculoskelatal: + calf tenderness (LLE), + swelling (+1 pitting edema of LLE ) Neurologic/Psych: alert, normal mood/affect, oriented x 3 Skin: normal color, warm/dry, no rash Laboratory Results Last 24 Hours Test 09/13/17 03:38 White Blood Count 12.48 K/uL Red Blood Count 3.70 M/uL Hemoglobin 10.3 g/dL Hematocrit 30.7 % Mean Corpuscular Volume 83.0 fL Mean Corpuscular Hemoglobin 27.8 pg Mean Corpuscular Hemoglobin Concent 33.6 g/dl RDW Standard Deviation 47.1 fL RDW Coefficient of Variation 15.7 % Platelet Count 266 K/uL Mean Platelet Volume 9.8 fL Activated Partial Thromboplast Time 49.9 SECONDS Partial Thromboplastin Ratio 1.9 Sodium Level 136 mmol/L Potassium Level 4.7 mmol/L Chloride Level 104 mmol/L Carbon Dioxide Level 27 mmol/L Anion Gap 5.0 mmol/L Blood Urea Nitrogen 7 mg/dl Creatinine 0.93 mg/dl Est Creatinine Clear Calc Drug Dose 45.8 ml/min Estimated GFR () 67.3 Estimated GFR (Non- 58.0 BUN/Creatinine Ratio 7.6 Random Glucose 116 mg/dl Calcium Level 8.9 mg/dl Creatine Kinase MB 3.1 ng/ml Creatine Kinase MB Ratio Troponin I 0.018 ng/ml Assessment and Plan Patient is a pleasant 82 y/o female, with no significant PMHx, who presented to the ED from PCP office due to LLE swelling. LLE DVT, extensive bilateral PE with signs of pulmonary infarct - Admitted to tele for cardiac monitoring - Trend cardiac enzymes: neg. x3 - Neg ECHO for R heart strain - IV Heparin gtt with eventual transition to oral anticoagulation if remains hemodynamically stable -Had IVC filter placed. Consulted Pulmonary in regards to pulmonary infarct Will monitor patient for 48 hours to assess for any new signs of infection -surprisingly, patient is asymptomatic at this time and has not even required oxygen. I attribute this to the patients active lifestyle -Patient should have hypercoagulable workup as well as regular cancer screening as outpatient as she does not regularly see her PCP. - Consult vascular surgery, appreciate recommendations -will likely DC patient on NOAC Code status: LEVEL III discussed with patient today. Dispo: From home- CM consulted Continued [facility] stay due to: other Discharge planning: home
[2017-09-14] VITALS (8 sets, daily range): BP systolic 112–148; BP diastolic 70–79; PULSE 61–88; TEMP 36.3–36.9; O2SAT 91–98
[2017-09-14] MEDS: SODIUM CHLORIDE 0.9% 1000ML 1,000 ML IV SCH ×2 (04:02→14:54)
[2017-09-14 06:23] LABS: HEMATOCRIT 32.2 % (37-47); HEMOGLOBIN 10.6 g/dL (12.0-16.0); MEAN CELL VOLUME 83.2 fL (80-100); MEAN CORPUSCULAR HEMOGLOBIN 27.4 pg (25-34); MEAN CORPUSCULAR HGB CONC 32.9 g/dl (32-36); MEAN PLATELET VOLUME 9.5 fL (7.4-10.4); PLATELET COUNT 263 K/uL (130-400); RED CELL DISTRIBUTION WIDTH CV 16.2 % (11.5-14.5); RED CELL DISTRIBUTION WIDTH SD 47.7 fL (36.4-46.3)
[2017-09-14 06:55] LABS: CALCIUM 8.3 mg/dl (8.5-10.1); CREATININE 0.88 mg/dl (0.60-1.20)
[2017-09-14 06:58] LABS: PTT PATIENT 50.9 SECONDS (21.0-31.0)
--- NOTE | 2017-09-14 08:47 | Clinical Documentation Query ---
CLINICAL DOCUMENTATION QUERY 82 y/o female from PCP office due to LLE swelling found to have extensive DVT and bilateral PE's. In your clinical opinion is this patient being managed for: ( ) PE with "acute cor pulmonale" treated with anticoagulation and IVC filter. ( x ) Not Agree ( ) Other explanation of clinical findings (Please Explain) ( ) Unable to determine (Please Define) ( ) Need to Discuss The medical record reflects the following clinical findings, treatment, and risk factors. Clinical Indicators: Per vascular consult, d/t to R heart strain, recommend temporary IVC filter insertion today. Per most recent daily progress note, "extensive bilateral PE with signs of pulmonary infarct." Echo reveals RV volume overload. ProBNAP of 4214. Treatment: anticoagulation and IVC filter. Risk Factors: Bilateral PE's Please clarify and document your clinical opinion in the progress notes and discharge summary. Terms such as "probable", "suspected", "likely", "questionable", "possible", or "still to be ruled out" are acceptable. IF IN AGREEMENT, YOU MUST DOCUMENT ABOVE DIAGNOSTIC STATEMENT IN DAILY PROGRESS NOTES AND DISCHARGE SUMMARY. This document is not part of the patient's record. Thank You, Yaron Gordon, RN [phone]
--- NOTE | 2017-09-14 10:28 | Pulmonary Consultation ---
History General Date of Service: Sep 14, 2017. Stated Complaint: Bilateral Pulmonary Embolism, Dvt Of Lt Lower Extr HPI The patient is a 82 year old female who presents to [facility] with complaints of Bilateral Pulmonary Embolism, Dvt Of Lt Lower Extr. The patient's primary care provider is Tegan Persaud M.D.. 82-year-old female admitted with left lower extremity DVT and bilateral pulmonary emboli. Patient has a very benign PmHx with some dyslipidemia and osteoarthritis. Patient was in her normal state of health until approximately 3 -4 weeks ago when she started noticing some cramping in her left calf region after water aerobics class. She did note some mild swelling in a few days later the calf discomfort started to dissipate but the swelling continued. Last Monday she noted increasing dyspnea on exertion until this progressed and she called her PCP on Monday and was evaluated on Monday09/13/2017 and then sent to the hospital with workup showing lower extremity DVT on the left side and bilateral pulmonary emboli. CT of the chest also shows superior subsegment right lower lobe infiltrate versus nodule versus infarction. During our conversation the patient denied any pleurisy, classic cardiac chest pain, B type symptoms, unintentional weight loss, fever, chills, hemoptysis, nausea or vomiting. Patient also denies any prolonged traveling are stationary position as well as any family history of clotting. Patient has children and there was no clotting dysfunction during her period. Echocardiogram 09/12/2017 LV: EF=60-65%, borderline LVH, flattened septum consistent with RV volume overload RV: TAPSE > 1.5cm, hypokinetic free wall Left atrium: Within normal limits Right atrium: Mildly dilated Doppler suggesting right to left intra-atrial shunt Mitral valve: Trace regurgitation Tricuspid valve: Mild regurgitation Pulmonic valve: Trace regurgitation Pericardial effusion: Small, no signs of tamponade physiology Great vessels: Normal collapsibility indication of normal right atrial pressure 3 mmHg Left lower extremity venous Doppler: Extensive left lower extremity DVT CTA chest: Extensive bilateral pulmonary emboli, focal consolidation RB6 questionable infarction,GGO lingula possible infarction EKG 09/12/2017(12:31) NSR, rate: 84, possible incomplete RBBB EKG 09/13/2017 (07:33) sinus rhythm rate 66 D-dimer: 4670 WBC: 13K11K ProBNP: 4214 Albumin: 2.9 Current treatment 1. IVC filter placement 2. Heparin drip PmHx: 1. Asymptomatic menopausal state 2. Dyslipidemia 3. Osteoarthritis Surgical History 1. History of Thyroglossal Duct Cyst Excision Family History 1. Family history of Coronary Artery Disease 2. Family history of Diabetes Mellitus Social History Denied: History of Alcohol Use Denied: History of Drug Use Marital History - Never a smoker Retired from Work Allergies 1. No Known Drug Allergies Historian: patient, EMS Review of Systems Constitutional: reports: as stated in HPI Eyes: reports: no symptoms ENT: reports: no symptoms Cardiovascular: reports: as stated in HPI Respiratory: reports: as stated in HPI Gastrointestinal: reports: as stated in HPI Genitourinary - Female: reports: no symptoms Musculoskeletal: reports: no symptoms Integumentary: reports: no symptoms Neurologic: reports: no symptoms Psychiatric: reports: no symptoms Endocrine: no symptoms Past Medical History Past Medical History: Please refer to HPI Past Surgical History: Please refer to HPI Family History FH: diabetes mellitus Please refer to HPI Social History Please refer to HPI Smoking Status: Never Smoker Allergies Coded Allergies: No Known Allergies (Unverified , 09/12/17) Current Medications Reported Home Medications Medications Dose Route/Sig Max Daily Dose Days Date Category Move Free Joint Health Ad (Ayvzhbldrln-Fjyntlbejsm-Opuatf) 1 Tab Tab 1 Tab PO QAM 09/12/17 Reported Physical Physical Exam Vital Signs: Date Time Temp Pulse Resp B/P (MAP) Pulse Ox O2 Delivery O2 Flow Rate FiO2 09/14/17 08:00 Room Air 09/14/17 07:27 36.9 75 18 148/79 (102) 97 Room Air 09/14/17 04:01 36.3 88 18 137/79 (98) 91 Room Air 09/14/17 04:00 Room Air 09/14/17 00:00 Room Air 09/13/17 23:51 36.5 78 17 139/78 (98) 95 Room Air 09/13/17 20:15 36.9 74 18 131/81 (98) 96 Room Air 09/13/17 20:00 Room Air 09/13/17 19:15 36.6 71 18 145/83 (103) 96 Room Air 09/13/17 17:24 36.5 83 18 142/73 (96) 96 Room Air 09/13/17 16:15 36.3 80 20 118/60 (79) 98 Room Air 09/13/17 16:15 36.4 68 18 142/73 (96) 99 Room Air 09/13/17 16:00 Room Air 09/13/17 15:45 36.4 71 18 146/72 (96) 97 Room Air 09/13/17 15:15 36.4 74 18 136/75 (95) 98 Room Air 09/13/17 15:01 89 16 171/85 98 Room Air 09/13/17 14:56 98 Room Air 09/13/17 14:51 94 Room Air 09/13/17 14:46 100 Oxymask 6 09/13/17 14:42 82 15 150/79 100 Oxymask 6 09/13/17 14:37 Oxymask 6 09/13/17 14:32 Oxymask 6 09/13/17 14:27 Oxymask 6 09/13/17 14:22 100 Oxymask 6 09/13/17 14:20 86 13 157/75 95 Oxymask 2 09/13/17 12:00 Room Air 09/13/17 11:52 36.7 76 18 123/74 (90) 97 Room Air General Appearance: WELL-APPEARING, WD/WN, NO APPARENT DISTRESS Head: NORMOCEPHALIC, ATRAUMATIC Eyes: PERRLA, NO DISCHARGE, EOMI, SCLERAE NORMAL, CONJUNCTIVAE NORMAL ENT: NORMAL EAR EXAM, NORMAL NASAL EXAM, NORMAL MOUTH EXAM, NORMAL THROAT EXAM , NORMAL DENTAL EXAM Neck: NORMAL RANGE OF MOTION, NO TENDERNESS, TRACHEA MIDLINE, NO STRIDOR Respiratory: BREATH SOUNDS NORMAL, CLEAR TO AUSCULTATION, CLEAR TO PERCUSSION Cardiovasular: REGULAR RATE/RHYTHM, NORMAL S1S2, NO M/G/R, NO MURMUR, NO GALLOP Abdomen: NON TENDER, NORMAL BOWEL SOUNDS, NO REBOUND, NO MASSES, NO GUARDING Genitourinary - Female: EXTERNAL GENITALIA NORMAL Back: NORMAL INSPECTION, NO MIDLINE TENDERNESS, NO CVA TENDERNESS, NO PARAVERTEBRAL TTP Upper Extremities: NO EDEMA, NO DEFORMITY, NORMAL ROM Edema: LLE (1+), Bilateral LE Pulses: carotid (R), carotid (L) (2+), dorsalis pedis (R) (2+), dorsalis pedis (L) (1+) Neuro: ALERT, ORIENTED x 3, NORMAL MOTOR EXAM, NORMAL SENSATION, NORMAL CEREBELLAR EXAM, NORMAL SPEECH Reflexes: biceps (R) (2+), bicpes (L) (2+), patellar (R) (2+), patellar (L) (2+ ) Babinski Testing: right (downgoing), left (downgoing) Psychiatric: NORMAL AFFECT, NO SUICIDAL IDEATION Diagnostics Labs Results Past 24 Hours Test 09/14/17 06:07 Range/Units White Blood Count 10.90 4.8-10.8 K/uL Red Blood Count 3.87 4.2-5.4 M/uL Hemoglobin 10.6 12.0-16.0 g/dL Hematocrit 32.2 37-47 % Mean Corpuscular Volume 83.2 80-100 fL Mean Corpuscular Hemoglobin 27.4 25-34 pg Mean Corpuscular Hemoglobin Concent 32.9 32-36 g/dl RDW Standard Deviation 47.7 36.4-46.3 fL RDW Coefficient of Variation 16.2 11.5-14.5 % Platelet Count 263 130-400 K/uL Mean Platelet Volume 9.5 7.4-10.4 fL Activated Partial Thromboplast Time 50.9 21.0-31.0 SECONDS Partial Thromboplastin Ratio 2.0 Sodium Level 136 136-145 mmol/L Potassium Level 4.0 3.5-5.1 mmol/L Chloride Level 105 98-107 mmol/L Carbon Dioxide Level 26 21-32 mmol/L Anion Gap 6.0 3-11 mmol/L Blood Urea Nitrogen 4 7-18 mg/dl Creatinine 0.88 0.60-1.20 mg/dl Est Creatinine Clear Calc Drug Dose 48.8 ml/min Estimated GFR () 71.9 Estimated GFR (Non- 62.1 BUN/Creatinine Ratio 4.7 10-20 Random Glucose 85 70-99 mg/dl Calcium Level 8.3 8.5-10.1 mg/dl Diagnostic Radiology Please refer to HPI EKG Please refer to HPI Impression Assessment and Plan 82-year-old female admitted with venous thromboembolic event: 1.VTE: Patient will require at least 3-6 months of anticoagulation and as there is no current sign of cancer Xarelto can be initiated after patient's post IVC heparin therapy is completed. This is worrisome as the patient has had an unprovoked event and the subcu people there are definitely higher weight of undiagnosed cancers in females the higher rates: The colorectal, breasts, uterus, hematologic, pancreas and stomach. Over the next 3-6 months more definitive workup such as colonoscopy and breast examination and vaginal exams are warranted. 2. Pulmonary nodule: Patient has pulmonary nodule could be just infarction but will have to be followed and I suggest we repeat her contrast CT in a 2 to three-month window. 3. IVC: At this time the patient showing no signs of hemodynamic instability and we will monitor her. Patient has IVC filter if she is stable in the future should be removed in the next 6 to 8 weeks.
[2017-09-14] MEDS: HEPARIN 25,000 UNIT/500ML D5W 500 ML IV SCH (13:56)
--- NOTE | 2017-09-14 15:21 | Progress Note ---
Subjective Date of Service: Sep 14, 2017. Subjective Pt evaluation today including: conversation w/ patient, conversation w/ family , physical exam, chart review, lab review, review of studies, conversation w/ review consultant, review of inpatient medication list Sitting up in chair, pleasant, conversational, no complaint, denies shortness of breath, denied cough, denied chest pain, denies hemoptysis Review of Systems Constitutional: No fever, No chills, No sweats, No weight loss, No weakness, No fatigue, No problem reported Eyes: No worsening of vision, No eye pain, No redness, No discharge, No diplopia ENT: No hearing loss, No unusual epistaxis, No nasal symptoms, No sore throat, No tinnitus, No dental problems, No trouble swallowing Respiratory: No cough, No sputum, No wheezing, No shortness of breath, No dyspnea on exertion, No dyspnea at rest, No hemoptysis Cardiac: No chest pain, No orthopnea, No PND, No edema, No claudication, No palpitations Abdomen: No pain, No nausea, No vomiting, No diarrhea, No constipation Musculoskeletal: No joint pain, No muscle pain, No swelling, No calf pain Female : No dysuria, No urinary frequency, No hematuria, No incontinence, No abnormal vaginal bleeding, No vaginal discharge Neurologic: No memory loss, No paralysis, No weakness, No numbness/tingling, No vertigo, No balance problems Psychiatric: No depression symptoms, No anhedonism, No anxiety, No insomnia, No substance abuse Heme: No abnormal bleeding/bruising, No clotting problems, No swollen lymph nodes, No night sweats Endo: No fatigue, No excessive thirst, No excessive urination Skin: No rash, No itch, No new/changing skin lesions, No color change, No bleeding Objective Vital Signs Date Time Temp Pulse Resp B/P (MAP) Pulse Ox O2 Delivery O2 Flow Rate FiO2 09/14/17 12:00 Room Air 09/14/17 11:41 36.4 82 18 112/70 (84) 98 Room Air 09/14/17 08:00 Room Air 09/14/17 07:27 36.9 75 18 148/79 (102) 97 Room Air 09/14/17 04:01 36.3 88 18 137/79 (98) 91 Room Air 09/14/17 04:00 Room Air 09/14/17 00:00 Room Air 09/13/17 23:51 36.5 78 17 139/78 (98) 95 Room Air 09/13/17 20:15 36.9 74 18 131/81 (98) 96 Room Air 09/13/17 20:00 Room Air 09/13/17 19:15 36.6 71 18 145/83 (103) 96 Room Air 09/13/17 17:24 36.5 83 18 142/73 (96) 96 Room Air 09/13/17 16:15 36.3 80 20 118/60 (79) 98 Room Air 09/13/17 16:15 36.4 68 18 142/73 (96) 99 Room Air 09/13/17 16:00 Room Air 09/13/17 15:45 36.4 71 18 146/72 (96) 97 Room Air Physical Exam General Appearance: WD/WN, no apparent distress Eyes: normal inspection, PERRL, EOMI, sclerae normal ENT: normal ENT inspection, hearing grossly normal, pharynx normal Neck: supple, no adenopathy, thyroid normal, no JVD, no carotid bruits, trachea midline Respiratory/Chest: chest non-tender, lungs clear, normal breath sounds, no respiratory distress, no accessory muscle use, + decreased breath sounds Cardiovascular: regular rate, rhythm, no edema, no gallop, no JVD, no murmur Abdomen: normal bowel sounds, non tender, soft, no organomegaly, no pulsatile mass Extremities: normal range of motion, non-tender, normal inspection, no pedal edema, no calf tenderness, normal capillary refill, pelvis stable, + swelling ( Left lower extremity has little bit) Neurologic/Psychiatric: transportation services representative II-XII nml as tested, no motor/sensory deficits, alert, normal mood/affect, oriented x 3 Skin: normal color, warm/dry, no rash Lymphatic: no adenopathy Laboratory Results Last 24 Hours Test 09/14/17 06:07 White Blood Count 10.90 K/uL Red Blood Count 3.87 M/uL Hemoglobin 10.6 g/dL Hematocrit 32.2 % Mean Corpuscular Volume 83.2 fL Mean Corpuscular Hemoglobin 27.4 pg Mean Corpuscular Hemoglobin Concent 32.9 g/dl RDW Standard Deviation 47.7 fL RDW Coefficient of Variation 16.2 % Platelet Count 263 K/uL Mean Platelet Volume 9.5 fL Activated Partial Thromboplast Time 50.9 SECONDS Partial Thromboplastin Ratio 2.0 Sodium Level 136 mmol/L Potassium Level 4.0 mmol/L Chloride Level 105 mmol/L Carbon Dioxide Level 26 mmol/L Anion Gap 6.0 mmol/L Blood Urea Nitrogen 4 mg/dl Creatinine 0.88 mg/dl Est Creatinine Clear Calc Drug Dose 48.8 ml/min Estimated GFR () 71.9 Estimated GFR (Non- 62.1 BUN/Creatinine Ratio 4.7 Random Glucose 85 mg/dl Calcium Level 8.3 mg/dl Assessment and Plan 82 y/o female, with no significant PMHx, admitted on September 12, 2017 because of LLE swelling. Was found has left lower extremity DVT and extensive PE LLE DVT, extensive bilateral PE with signs of pulmonary infarct, stable improving cardiac enzymes: neg. x3, Neg ECHO for R heart strain Had IVC filter placed because of extensive PE and wants to decrease the transferring from lower extremity to the lung Has been on IV Heparin gtt, is planning to transition to oral anticoagulation if remains hemodynamically stable Patient should have hypercoagulable workup as well as regular cancer screening as outpatient as she does not regularly see her PCP. I discussed with patient and daughter in bedside again today vascular surgery and bulk truck driver on the case will likely DC patient on NOAC Pulmonary nodule: Agricultural Education Teacher, patient has pulmonary nodule could be just infarction but will have to be followed and I suggest we repeat her contrast CT in a 2 to three-month window. Also per bulk truck driver , at this time the patient showing no signs of hemodynamic instability and we will monitor her. Patient has IVC filter if she is stable in the future should be removed in the next 6 to 8 weeks. Continue heparin drip, switch to NOAC if it is applicable Code status: LEVEL III Continued [facility] stay due to: other Discharge planning: home
[2017-09-14] MEDS: RIVAROXABAN TAB 15 MG TAB PO SCH (17:25)
[2017-09-15 04:35] VITALS: BP 146/79; PULSE 74; TEMP 36.5; O2SAT 96
[2017-09-15 05:55] LABS: HEMATOCRIT 33.9 % (37-47); MEAN CELL VOLUME 84.1 fL (80-100); MEAN CORPUSCULAR HEMOGLOBIN 27.3 pg (25-34); MEAN CORPUSCULAR HGB CONC 32.4 g/dl (32-36); MEAN PLATELET VOLUME 9.5 fL (7.4-10.4); PLATELET COUNT 257 K/uL (130-400); RED CELL DISTRIBUTION WIDTH CV 16.3 % (11.5-14.5); RED CELL DISTRIBUTION WIDTH SD 49.4 fL (36.4-46.3); WHITE BLOOD COUNT 8.89 K/uL (4.8-10.8)
[2017-09-15 06:08] LABS: PTT PATIENT 29.2 SECONDS (21.0-31.0)
[2017-09-15 06:29] LABS: CALCIUM 8.7 mg/dl (8.5-10.1); CREATININE 0.88 mg/dl (0.60-1.20); POTASSIUM 4.1 mmol/L (3.5-5.1)
[2017-09-15 08:00] VITALS: O2SAT 96
[2017-09-15] MEDS: RIVAROXABAN TAB 15 MG TAB PO SCH (09:33)
--- NOTE | 2017-09-15 11:34 | Pulmonology Progress Note ---
Pulmonary Progress Note Date of Service Sep 15, 2017. Attending Dr. Dc Subjective Patient is doing well today sitting up in moving throughout the been no signs of respiratory insufficiency Objective Patient is sitting up in a chair move about the bed having conversation with no signs of respiratory insufficiency such as tachypnea secondary muscle use Vital signs: Stable on room air Respiratory: Clear to auscultation Cardiac: S1-S2 regular rate and rhythm Abdomen: Soft nontender positive bowel sounds Extremities: No clubbing cyanosis or edema Assessment & Plan 82-year-old female admitted with VTE(DVT/PE) in noted to have a PFO with right- to-left shunt by echocardiogram 1. VTE: Patient underwent IVC catheter placement as she was showing some signs of right ventricular strain. Currently on Xarelto and doing well. My office is going to come or give the patient a Xarelto 30 day coupon and at that time she can be discharged. She will require follow-up in the Pulmonary Clinic in the next 2-3 weeks. 2. Pulmonary nodule: Patient has pulmonary nodule could be just infarction but will have to be followed and I suggest we repeat her contrast CT in a 2 to three-month window. 3. IVC: At this time the patient showing no signs of hemodynamic instability and we will monitor her. Patient has IVC filter if she is stable in the future should be removed in the next 6 to 8 weeks. Pulmonary will sign off at this time Data Medications: Current Inpatient Medications Medications (Trade) Dose Ordered Sig/Ramila Route Start Time Stop Time Status Last Admin Dose Admin Ioversol (Optiray 320) 125 ml UD PRN IV 09/12/17 14:15 09/16/17 14:14 Acetaminophen (Tylenol Tab) 650 mg Q4H PRN PO 09/12/17 15:00 10/12/17 14:59 Al Hydrox/Mg Hydrox/Simethicone (Maalox Max Susp) 15 ml Q4H PRN PO 09/12/17 15:00 10/12/17 14:59 Magnesium Hydroxide (Milk Of Magnesia Susp) 30 ml Q12H PRN PO 09/12/17 15:00 10/12/17 14:59 Ondansetron HCl (Zofran Inj) 4 mg Q6H PRN IV 09/12/17 15:00 10/12/17 14:59 Nitroglycerin (Nitrostat Tab) 0.4 mg UD PRN SL 4/10/18 15:00 10/12/17 14:59 Morphine Sulfate (MoRPHine SULFATE INJ) 2 mg Q30M PRN IV 09/12/17 15:00 09/26/17 14:59 Polyethylene (Miralax Powder Packet) 17 gm DAILY PRN PO 09/12/17 15:00 10/12/17 14:59 Rivaroxaban (Xarelto Tab) 15 mg BID PO 09/14/17 16:30 10/05/17 16:29 09/15/17 09:33 15 MG I & O: 24-Hour Column 09/16/17 07:59 Output Total 0 ml Balance 0 ml Vital Signs: Date Time Temp Pulse Resp B/P (MAP) Pulse Ox O2 Delivery O2 Flow Rate FiO2 09/15/17 08:00 96 Room Air 09/15/17 04:35 36.5 74 17 146/79 (101) 96 Room Air 09/15/17 04:00 Room Air 09/15/17 00:00 Room Air 09/14/17 22:59 36.5 61 18 119/71 (87) 94 Room Air 09/14/17 20:00 92 Room Air 09/14/17 19:50 36.4 81 18 127/76 (93) 92 Room Air 09/14/17 16:01 36.9 83 18 131/72 (91) 95 Room Air 09/14/17 16:00 95 Room Air 09/14/17 12:00 Room Air 09/14/17 11:41 36.4 82 18 112/70 (84) 98 Room Air Laboratory Results: Last 24 Hours Test 09/15/17 05:42 White Blood Count 8.89 K/uL Red Blood Count 4.03 M/uL Hemoglobin 11.0 g/dL Hematocrit 33.9 % Mean Corpuscular Volume 84.1 fL Mean Corpuscular Hemoglobin 27.3 pg Mean Corpuscular Hemoglobin Concent 32.4 g/dl RDW Standard Deviation 49.4 fL RDW Coefficient of Variation 16.3 % Platelet Count 257 K/uL Mean Platelet Volume 9.5 fL Activated Partial Thromboplast Time 29.2 SECONDS Partial Thromboplastin Ratio 1.1 Sodium Level 137 mmol/L Potassium Level 4.1 mmol/L Chloride Level 107 mmol/L Carbon Dioxide Level 27 mmol/L Anion Gap 3.0 mmol/L Blood Urea Nitrogen 6 mg/dl Creatinine 0.88 mg/dl Est Creatinine Clear Calc Drug Dose 48.8 ml/min Estimated GFR () 71.9 Estimated GFR (Non- 62.1 BUN/Creatinine Ratio 7.0 Random Glucose 91 mg/dl Calcium Level 8.7 mg/dl
[2017-09-15] MEDS ORDERED: XRL15 PO ×2 (12:31)
--- NOTE | 2017-09-15 12:33 | Discharge Instructions ---
Discharge Instructions Date of Service Sep 15, 2017. Admission Reason for Admission: Bilateral Pulmonary Embolism, Dvt Of Lt Lower Extr Discharge Discharge Diagnosis / Problem: (1) Bilateral pulmonary embolism (2) Deep vein thrombosis (DVT) of left lower extremity VTE Date & Time Date of VTE Diagnosis: Sep 12, 2017 Time of VTE Diagnosis: 14:09 Discharge Goals Goal(s): Decrease discomfort, Improve function, Increase independence, Improve disease control, Improve nutritional status, Learn about illness, Diagnostic testing, Therapeutic intervention, Prevent Disease Progression, Specific goals Activity Recommendations Activity Limitations: as noted below . Instructions / Follow-Up Instructions / Follow-Up you have DVT, extensive bilateral pulmonary embolization with signs of pulmonary infarct, you had IVC filter placed you are on Xarelto for the treatment of blood clot, be careful of fall you have Pulmonary nodule: you need to follow up with pulmonagist in 2-3 week, and to repeat her contrast CT in a 2 to three-months you need to be seen by vascular surgeon for the possible IVC filter removal in the next 6 to 8 weeks. - you need to follow up with your primary care physician in 1 week, - take medication as instructed, never overdose or any misuse, or take with alcohol, because misuse of medicine may cause organ damage or , call your primary care physician if have questions of medicaitons. - call your primary care physician OR go to local emergency room if has any fever/chill, chest pain, shortness of breathing, nausea/vomiting/abdominal pain , facial droop/slurry speech/local weakness, or if has any questions. - fall precaution - diet as instructed - you need to follow up with your subspecialists - you should understand that it is important to follow up the above instruction , and "not following the above instruction" may cause delayed or missed care of your medical conditions which may cause permanent organ damage and even . Medication Instructions: Your condition is typically treated with an anticoagulant. Anticoagulants will thin your blood to help prevent new clots. * You should take her medication exactly as directed. * Never skip a dose. * Never take a double dose. If you miss a dose, take it as soon as you remember. Call your Primary Care doctor if you experience any of the following: * Swelling or Pain in your leg * Sudden, continuous pain deep in a muscle * Pain that worsens when you are active or when you stand still for a long time * Chest Pain * Sudden Shortness of Breath * Rapid or pounding heart beat * Fainting * Dizziness * Cough with blood or bloody sputum * Sweating more than normal * Bruises * Heavy or uncontrolled bleeding * Blood in your urine, stool or vomit * Black or tarry stools Caring for Your Self at Home: * Avoid sitting, standing or lying down for long periods without moving your legs and feet * When traveling by car, stop to get out and move around at least once every 3 hours * On long airplane, train or bus rides, get up and move around when possible * If you can't get up, wiggle your toes and tighten your calves to keep your blood moving Follow Up: It is important for you to keep your follow up appointments with your medical provider. Current Hospital Diet Patient's current hospital diet: AHA Diet (Heart Healthy) Discharge Diet Recommended Diet: AHA Diet (Heart Healthy) Procedures Procedures Performed: Insertion of Vena Cava Filter, Right Jugular Approach, Ultrasound Localization Of Right Internal Jugular Vein, Fluoroscopy For Positioning, Moderate Concious Sedation 1422 to 1446 Pending Studies Studies pending at discharge: no Laboratory Results Meds Administered (Past 24Hrs) Medications (Trade) Dose Ordered Sig/Ramila Route Start Time Stop Time Status Last Admin Dose Admin Cefazolin Sodium (Cefazolin 1000mg Iv Push) 1,000 mg PREOP IV 09/13/17 13:45 09/13/17 23:59 DC 09/13/17 13:45 1,000 MG Lidocaine HCl (Xylocaine 1% Inj (Local)) 2 ml ONE ONCE INJ 09/13/17 14:24 09/13/17 14:32 DC 09/13/17 14:24 2 ML Midazolam HCl (Versed Inj) 1 mg ONE ONCE IV 09/13/17 14:22 09/13/17 14:32 DC 09/13/17 14:22 1 MG Fentanyl Citrate (Fentanyl Inj) 25 mcg ONE ONCE IV 09/13/17 14:22 09/13/17 14:32 DC 09/13/17 14:22 25 MCG Iodixanol (Visipaque 50ml) 4,050 mg ONE ONCE FLUSH 09/13/17 14:50 09/13/17 14:51 DC 09/13/17 14:50 4,050 MG Heparin Sodium/ Sodium Chloride (Heparin Sod/Ns 2 Units/Ml) 20 unit ONE ONCE IV 09/13/17 14:50 09/13/17 14:51 DC 09/13/17 14:50 20 UNIT Rivaroxaban (Xarelto Tab) 15 mg BID PO 09/14/17 16:30 10/05/17 16:29 09/15/17 09:33 15 MG Medical Emergencies . Who to Call and When: Medical Emergencies: If at any time you feel your situation is an emergency, please call 911 immediately. . Non-Emergent Contact Non-Emergency issues call your: Primary Care Provider, Marketing Information Coordinator, Specialist (vascular surgeon) . . "Provider Documentation" section prepared by Adair Bangura. .
[2017-09-15 13:11] VITALS: BP 146/79; TEMP 36.5; O2SAT 96
--- NOTE | 2017-09-15 14:18 | Discharge Summary ---
Discharge Summary Date of Service Sep 15, 2017. Discharge Summary Admission Date: Sep 12, 2017 at 15:05 Discharge Date: Sep 15, 2017 Principal Diagnosis: DVT, extensive bilateral pulmonary embolization Procedures: IVC filter placement Consultations: Wood Router, vascular surgeon, Medication Reconciliation New Medications: Rivaroxaban (Xarelto) 15 Mg Tab 15 MG PO BID for 20 Days, #40 TAB Continued Medications: Ynlkcvsuyvu-Yjdftpnufim-Ncpcpb (Move Free [employer] Ad) 1 Tab Tab 1 TAB PO QAM Discharge Exam Doing well, out of bed to the chair, up and walk, denies difficulty breathing Review of Systems: Constitutional: No fever, No chills, No sweats, No weight loss, No weakness , No fatigue, No problem reported ENT: No hearing loss, No unusual epistaxis, No nasal symptoms, No sore throat, No tinnitus, No dental problems, No trouble swallowing, No problem reported Respiratory: No cough, No sputum, No wheezing, No shortness of breath, No dyspnea on exertion, No dyspnea at rest, No hemoptysis, No problem reported Cardiovascular: No chest pain, No orthopnea, No PND, No edema, No claudication, No palpitations, No problem reported Abdomen: No pain, No nausea, No vomiting, No diarrhea, No constipation, No GI bleeding, No problem reported Musculoskeletal: No joint pain, No muscle pain, No swelling, No calf pain, No problem reported Genitourinary - Female: No dysuria, No urinary frequency, No urinary urgency , No urinary incontinence, No urinary retention, No hematuria, No dysmenorrhea, No menorrhagia, No metrorrhagia, No rash, No vaginal bleeding, No vaginal discharge, No vaginal itching, No vulvodynia, No , No problem reported Neurologic: No memory loss, No paralysis, No weakness, No numbness/tingling , No vertigo, No balance problems, No problem reported Psychiatric: No depression symptoms, No anhedonism, No anxiety, No insomnia , No substance abuse, No problem reported Endocrine: No fatigue, No excessive thirst, No excessive urination, No problem reported Hematologic / Lymphatic: No abnormal bleeding/bruising, No clotting problems , No swollen lymph nodes, No night sweats, No problem reported Integumentary: No rash, No itch, No new/changing skin lesions, No color change, No bleeding, No problem reported Physical Exam: General Appearance: WD/WN, no apparent distress Eyes: normal inspection, PERRL ENT: normal ENT inspection, hearing grossly normal Neck: supple, no adenopathy Respiratory/Chest: chest non-tender, lungs clear Cardiovascular: regular rate, rhythm, no gallop, no JVD, no murmur Abdomen / GI: normal bowel sounds, non tender, soft, no organomegaly, no pulsatile mass Extremities: normal inspection, no calf tenderness, normal capillary refill Neurologic/Psychiatric: tech writer II-XII nml as tested, no motor/sensory deficits , alert, normal mood/affect, normal reflexes, oriented x 3 Skin: normal color Hospital Course 82 y/o female, with no significant PMHx, admitted on September 12, 2017 because of LLE swelling. Was found has left lower extremity DVT and extensive PE LLE DVT, extensive bilateral PE with signs of pulmonary infarct, continue stable improving cardiac enzymes: neg. x3, Neg ECHO for R heart strain Had IVC filter placed possible because of extensive PE and wants to decrease the transferring from lower extremity to the lung Has been on IV Heparin gtt, which was transition to oral anticoagulation of Xarelto after discussed with hvac controls technician Patient should have hypercoagulable workup as well as regular cancer screening as outpatient as she does not regularly see her PCP. I discussed with patient and daughter in bedside again vascular surgery and hvac controls technician on the case Pulmonary nodule: Wood Router, patient has pulmonary nodule could be just infarction but will have to be followed and I suggest we repeat her contrast CT in a 2 to three-month window. Also per hvac controls technician , at this time the patient showing no signs of hemodynamic instability and we will monitor her. Patient has IVC filter if she is stable in the future should be removed in the next 6 to 8 weeks, has patient to follow-up with vascular surgeon and hvac controls technician about this Code status: LEVEL III Instructions / Follow-Up you have DVT, extensive bilateral pulmonary embolization with signs of pulmonary infarct, you had IVC filter placed you are on Xarelto for the treatment of blood clot, be careful of fall you have Pulmonary nodule: you need to follow up with pulmonagist in 2-3 week, and to repeat her contrast CT in a 2 to three-months you need to be seen by vascular surgeon for the possible IVC filter removal in the next 6 to 8 weeks. - you need to follow up with your primary care physician in 1 week, - take medication as instructed, never overdose or any misuse, or take with alcohol, because misuse of medicine may cause organ damage or , call your primary care physician if have questions of medicaitons. - call your primary care physician OR go to local emergency room if has any fever/chill, chest pain, shortness of breathing, nausea/vomiting/abdominal pain , facial droop/slurry speech/local weakness, or if has any questions. - fall precaution - diet as instructed - you need to follow up with your subspecialists - you should understand that it is important to follow up the above instruction , and "not following the above instruction" may cause delayed or missed care of your medical conditions which may cause permanent organ damage and even . Total Time Spent: Greater than 30 minutes This includes examination of the patient, discharge planning, medication reconciliation, and communication with other providers. Discharge Instructions Please refer to the electronic Patient Visit Report (Discharge Instructions) for additional information. Additional Copies To Tegan Persaud M.D.; Henry Edwards M.D.; Sekou Dc MD
[2017-09-15 14:58] VITALS: PULSE 85; O2SAT 96
--- NOTE | 2017-09-30 00:47 | EMERGENCY ROOM VISIT NOTE ---
History Report prepared by Segundo: Marianna Fierro Under the Supervision of: Dr. Mally Hinson D.O. First contact with patient: 12:03 Chief Complaint: SWELLING TO EXTREMITY Stated Complaint: SWELLING OF LEG History of Present Illness The patient is a 82 year old female who presents to the Emergency Room with complaints of worsening swelling to her left leg beginning three weeks ago. The patient reports she exercises at water aerobics and thought she pulled a muscle in the back of her calf three weeks ago.She states she had some "tightness in her calf before it started to swell. The patient reports the swelling started in the back of her calf before it moved to her foot. She notes increased fatigue , decreased appetite, and shortness of breath beginning a week ago. She reports her shortness of breath worsens with exertion. The patient saw her PCP today who performed an EKG and referred her to come to the ED to be evaluated for a DVT rule out. Presently, she denies any pain to her leg. She denies any personal or family history of blood clots. She does not take any daily medications. The patient notes a family history of diabetes and Alzheimer's. Pt denies headache, change in vision, fevers, cough, chest pain, palpitations, nausea, vomiting, diarrhea, pain with urination, and melena. Source of History: patient Onset: three weeks ago Position: leg (left) Quality: other (swelling) Timing: worsening Associated Symptoms: + SOB, + fatigue, No headache, No cough, No chest pain , No nausea, No vomiting, No diarrhea Review of Systems See HPI for pertinent positives & negatives. A total of 10 systems reviewed and were otherwise negative. Past Medical & Surgical Medical Problems: (1) Anemia (2) Bilateral pulmonary embolism (3) Deep vein thrombosis (DVT) of left lower extremity (4) GI bleed (5) No active medical problems Family History FH: diabetes mellitus Social History Smoking Status: Never Smoker Smokeless Tobacco Use: No Alcohol Use: none Marital Status: Housing Status: lives alone Occupation Status: retired Current/Historical Medications Scheduled Zbttncejffb-Oqcajhqtwbi-Ssyihe (Move Free Joint Health Ad), 1 TAB PO QAM Rivaroxaban (Xarelto), 15 MG PO BID Allergies Coded Allergies: No Known Allergies (Unverified , 09/29/17) Physical Exam Vital Signs Date Time Temp Pulse Resp B/P (MAP) Pulse Ox O2 Delivery O2 Flow Rate FiO2 09/12/17 15:04 84 21 97 09/12/17 15:00 146/84 09/12/17 14:59 83 22 99 09/12/17 14:54 93 21 98 09/12/17 14:49 96 18 159/99 92 Room Air 09/12/17 14:40 159/99 09/12/17 12:58 80 18 138/75 97 Room Air 09/12/17 11:01 36.6 115 20 145/79 97 Room Air Physical Exam GENERAL: alert, well appearing, well nourished, no distress, non-toxic EYE EXAM: normal conjunctiva, PERRL and EOM's grossly intact OROPHARYNX: no exudate, no erythema, lips, buccal mucosa, and tongue normal and mucous membranes are moist NECK: supple, no nuchal rigidity, no adenopathy, non-tender LUNGS: Clear to auscultation. Normal chest wall mechanics HEART: no murmurs, S1 normal and S2 normal ABDOMEN: abdomen soft, non-tender, normo-active bowel sounds, no masses, no rebound or guarding. BACK: Back is symmetrical on inspection and there is no deformity, no midline tenderness, no CVA tenderness. SKIN: no rashes and no bruising UPPER EXTREMITIES: upper extremities are grossly normal. LOWER EXTREMITIES: No pitting edema. No reproducible calf tenderness, no palpable ropiness, negative Niles's sign NEURO EXAM: Normal sensorium, cranial nerves II-XII grossly intact, normal speech, no gross weakness of arms, no gross weakness of legs. Medical Decision & Procedures ER Provider Diagnostic Interpretation: Radiology results have been interpreted by the radiologist and reviewed by me. ULTRASOUND LEFT LOWER EXTREMITY VENOUS FINDINGS: There is nearly occlusive deep venous thrombosis identified within the mid to distal superficial femoral vein, the popliteal vein, and extending into the calf within branches of the anterior tibial, posterior tibial, and peroneal veins. The common femoral and proximal superficial femoral vein are patent and normally compressible. The greater saphenous vein and the profunda femoris vein at the junction with the common femoral vein are clear. IMPRESSION: Extensive left lower extremity deep venous thrombosis as above. Electronically signed by: Lul Fu M.D. (CHEST FOR PE) ANGIO WITH FINDINGS: Cardiology Nurse Practitioner topogram: Unremarkable. Pulmonary vasculature: The study is adequate for assessment of the pulmonary vascular tree. Extensive bilateral lobar and segmental pulmonary emboli affecting every lobe. Prominent thrombus in the right interlobar artery. No thrombus in the main pulmonary artery. Main pulmonary artery is not enlarged. However, flattening of the interventricular septum. No intracardiac filling defect. No reflux of contrast into the hepatic veins. Remaining chest: On soft tissue windows, normal thyroid and thoracic inlet. No axillary, supraclavicular, hilar, or mediastinal lymphadenopathy. Atherosclerosis of the aorta. Normal heart size. Trace pericardial effusion. No pleural effusion. Calcifications in the spleen likely indicate prior granulomatous infection. Hypodensity at the right hepatic dome indeterminate but likely hepatic cyst or hamartoma. On lung windows, consolidation in the superior segment of the right lower lobe, which is peripheral. Additional dependent reticular and groundglass opacities in the lower lobes likely atelectasis. Calcified granuloma noted in the right lower lobe. Biapical scarring. Focal groundglass opacity peripherally in the superior segment of the lingula (series 4 image 132). Calcified granuloma also noted in the left lower lobe. Central airways patent. On bone windows, degenerative changes of the spine. IMPRESSION: 1. Extensive bilateral pulmonary embolus burden involving every lobe are artery and extensively in the segmental arteries. Flattening of the interventricular septum raises concern for right heart strain. 2. Focal consolidation in the superior segment of the right lower lobe raises concern for developing infarct. Minimal groundglass peripheral opacity in the lingula may also represent developing infarct. These findings were discussed with Dr. Hinson by Dr. Ward on 09/12/2017 2:26 PM. Electronically signed by: Shorty Ward M.D. Laboratory Results Test 09/12/17 12:45 09/12/17 12:55 Immature Granulocyte % (Auto) 0.5 % White Blood Count 13.37 K/uL (4.8-10.8) Red Blood Count 4.09 M/uL (4.2-5.4) Hemoglobin 11.2 g/dL (12.0-16.0) Hematocrit 33.7 % (37-47) Mean Corpuscular Volume 82.4 fL (80-100) Mean Corpuscular Hemoglobin 27.4 pg (25-34) Mean Corpuscular Hemoglobin Concent 33.2 g/dl (32-36) Platelet Count 320 K/uL (130-400) Mean Platelet Volume 10.2 fL (7.4-10.4) Neutrophils (%) (Auto) 83.9 % Lymphocytes (%) (Auto) 10.1 % Monocytes (%) (Auto) 4.6 % Eosinophils (%) (Auto) 0.6 % Basophils (%) (Auto) 0.3 % Neutrophils # (Auto) 11.21 K/uL (1.4-6.5) Lymphocytes # (Auto) 1.35 K/uL (1.2-3.4) Monocytes # (Auto) 0.62 K/uL (0.11-0.59) Eosinophils # (Auto) 0.08 K/uL (0-0.5) Basophils # (Auto) 0.04 K/uL (0-0.2) Immature Granulocyte # (Auto) 0.07 K/uL (0.00-0.02) Prothrombin Time 10.9 SECONDS (9.0-12.0) Prothromb Time International Ratio 1.0 (0.9-1.1) D-Dimer 4670 ug/L FEU (0-500) Magnesium Level 2.5 mg/dl (1.8-2.4) Total Bilirubin 0.4 mg/dl (0.2-1) Aspartate Amino Transf (AST/SGOT) 23 U/L (15-37) Alanine Aminotransferase (ALT/SGPT) 19 U/L (12-78) Alkaline Phosphatase 81 U/L (45-117) Pro-B-Type Natriuretic Peptide 4214 pg/ml (0-1800) Total Protein 7.4 gm/dl (6.4-8.2) Albumin 2.9 gm/dl (3.4-5.0) Globulin 4.5 gm/dl (2.5-4.0) Albumin/Globulin Ratio 0.6 (0.9-2) Thyroid Stimulating Hormone (TSH) 1.780 uIu/ml (0.300-4.500) Urine Color YELLOW Urine Appearance CLEAR (CLEAR) Urine pH 7.5 (4.5-7.5) Urine Specific [place] 1.007 (1.000-1.030) Urine Protein NEG (NEG) Urine Glucose (UA) NEG (NEG) Urine Ketones NEG (NEG) Urine Occult Blood NEG (NEG) Urine Nitrite NEG (NEG) Urine Bilirubin NEG (NEG) Urine Urobilinogen NEG (NEG) Urine Leukocyte Esterase TRACE (NEG) Urine WBC (Auto) 1-5 /hpf (0-5) Urine RBC (Auto) 0-4 /hpf (0-4) Urine Hyaline Casts (Auto) 1-5 /lpf (0-5) Urine Epithelial Cells (Auto) 0-5 /lpf (0-5) Urine Bacteria (Auto) NEG (NEG) Laboratory results per my review. Medications Administered Medications (Trade) Dose Ordered Sig/Rmaila Route Start Time Stop Time Status Last Admin Dose Admin Heparin Sodium/ Dextrose 500 ml @ 22 mls/hr [id number] IV 09/12/17 14:30 09/14/17 15:35 DC 09/14/17 13:56 22 MLS/HR Heparin Sodium (Porcine) (Heparin Sq 5000 Unit/0.5ml) 5,000 unit NOW STAT IV 09/12/17 14:32 09/12/17 14:40 DC 09/12/17 14:43 5,000 UNIT ECG Per My Interpretation Indication: other (leg swelling) Rate (beats per minute): 84 Rhythm: sinus rhythm Findings: RBBB (incomplete), T-wave inversion (lead 3), other (normal axis, normal intervals ) ED Course 1210: The patient was evaluated in room B10. A complete history and physical exam was performed. 1428: Ordered Heparin Sodium/Dextrose 1 ea N/A. 1429: I updated the patient and her daughters on her test results. She is agreeable to the treatment plan. 1430: Ordered Heparin Sodium/Dextrose 500 ml @ 22 mls/hr IV. 1432: 1430: Ordered Heparin Sodium (Porcine) 5000 unit IV. 1442: I reviewed the patient[facility] She will evaluate the patient for further management. Medical Decision Differential diagnosis: Etiologies such as infections, reactive airway disease, pneumonia, pneumothorax , COPD, CHF, cardiac ischemia, pulmonary embolism, musculoskeletal, gastrointestinal, as well as others were entertained. Pt with concerning story for possible LE DVT, no prior hx. Given recent description of AUGUSTINE, CTA performed also and pt found to have b/l PE's. Pt started on anticoagulation and case discussed with hospitalist. Pt and family aware of all results and agreeable with plan. Negative trop and no ekg changes to suggest right heart strain. VS stable throughout. No other acute infectious etiology for sx noted and WBC likely reactive from dvt/pe, no hx of significant bleeding or recent surgery to prevent anticoagulation. Medication Reconcilliation Current Medication List: was personally reviewed by me Blood Pressure Screening Patient's blood pressure: Elevated blood pressure Blood pressure disposition: Referred to PCP (referred to hospitalist) Consults Time Called: 1438 Consulting Physician: Dr. Jean Returned Call: 1442 I reviewed the patient's case with Dr. Jean. She will evaluate the patient for further management. Impression Primary Impression: Bilateral pulmonary embolism Additional Impressions: DVT (deep venous thrombosis) Elevated brain natriuretic peptide (BNP) level Scribe Attestation The scribe's documentation has been prepared under my direction and personally reviewed by me in its entirety. I confirm that the note above accurately reflects all work, treatment, procedures, and medical decision making performed by me. Departure Information Dispostion Being Evaluated By Hospitalist Prescriptions Rivaroxaban (Xarelto) 15 Mg Tab 15 MG PO BID for 20 Days, #40 TAB Prov: Adair Bangura MD, PhD 09/15/17 Referrals Tegan Persaud M.D. (PCP) Patient Instructions My [facility] Problem Qualifiers Additional Impressions: DVT (deep venous thrombosis) DVT location: lower extremity Affected thrombotic vein of extremity: unspecified vein of extremity Chronicity: acute Laterality: left Qualified Codes: I82.402 - Acute embolism and thrombosis of unspecified deep veins of left lower extremity
[2017-10-03] MEDS ORDERED: PRLSR20 PO (08:47)
== END 2017-09-15 15:45 | disposition home or self-care (01) | DRG 252 ==
LOC: C.EDB 10:51 → C.MED 15:05 → ENRESERV 15:28
PROVIDERS: ADMIT Internal Medicine; ATTEND Hospitalist
PROC: 06H03DZ Insertion of Intraluminal Device into Inferior Vena Cava, Percutaneous Approach (ICD-10-PCS; principal; 2017-09-13 14:00)
DX: I82.412 Acute embolism and thrombosis of left femoral vein (principal); I26.99 Other pulmonary embolism without acute cor pulmonale; I82.432 Acute embolism and thrombosis of left popliteal vein; I82.442 Acute embolism and thrombosis of left tibial vein; I82.492 Acute embolism and thrombosis of other specified deep vein of left lower extremity; R91.1 Solitary pulmonary nodule; M19.90 Unspecified osteoarthritis, unspecified site; Z51.81 Encounter for therapeutic drug level monitoring; Z79.899 Other long term (current) drug therapy; Z83.3 Family history of diabetes mellitus; Z82.49 Family history of ischemic heart disease and other diseases of the circulatory system

== ENCOUNTER → 2017-09-22 | Outpatient (CLI) | payer BC ==
[~2017-09-22] MED LIST: GLUC1TAB94 PO; PRLSR20 PO; XRL15 PO
[2017-09-22 13:24] LABS: HEMATOCRIT 30.6 % (37-47); HEMOGLOBIN 9.9 g/dL (12.0-16.0); MEAN CELL VOLUME 84.1 fL (80-100); MEAN CORPUSCULAR HEMOGLOBIN 27.2 pg (25-34); MEAN CORPUSCULAR HGB CONC 32.4 g/dl (32-36); MEAN PLATELET VOLUME 9.9 fL (7.4-10.4); PLATELET COUNT 384 K/uL (130-400); RED CELL DISTRIBUTION WIDTH CV 16.7 % (11.5-14.5); RED CELL DISTRIBUTION WIDTH SD 50.9 fL (36.4-46.3); WHITE BLOOD COUNT 16.98 K/uL (4.8-10.8)
== END | disposition home or self-care (01) ==
LOC: C.LAB1850 12:14
PROVIDERS: ATTEND Internal Medicine
DX: R31.9 Hematuria, unspecified (principal); I26.99 Other pulmonary embolism without acute cor pulmonale; I82.402 Acute embolism and thrombosis of unspecified deep veins of left lower extremity; Z79.01 Long term (current) use of anticoagulants

== ENCOUNTER → 2017-09-26 | Outpatient (CLI) | payer BC ==
[~2017-09-26] MED LIST changes: +HYDR-5688 PO
[2017-09-26 13:04] LABS: HEMATOCRIT 24.1 % (37-47); HEMOGLOBIN 7.7 g/dL (12.0-16.0); MEAN CELL VOLUME 83.7 fL (80-100); MEAN CORPUSCULAR HEMOGLOBIN 26.7 pg (25-34); PLATELET COUNT 380 K/uL (130-400); RED CELL DISTRIBUTION WIDTH SD 49.4 fL (36.4-46.3); WHITE BLOOD COUNT 12.57 K/uL (4.8-10.8)
== END | disposition home or self-care (01) ==
LOC: C.LAB1850 11:38
PROVIDERS: ATTEND Internal Medicine Critical Care Medicine
DX: I26.99 Other pulmonary embolism without acute cor pulmonale (principal); Z79.01 Long term (current) use of anticoagulants

== ENCOUNTER 2017-09-27 17:13 | Inpatient (IN) | payer BC, OTHER ==
[~2017-09-27] VITALS: Ht 162.6 cm; Wt 65.1 kg
[~2017-09-27 17:13] MED LIST changes: -HYDR-5688 PO; -PRLSR20 PO
[2017-09-27 19:47] VITALS: BP 115/56; PULSE 96; TEMP 37.2; Ht 162.6 cm; Wt 65.1 kg
[2017-09-27] MEDS ORDERED: SODIUM CHLORIDE 0.9% 1000ML 1,000 ML IV SCH (20:00)
[2017-09-27] MEDS ORDERED: ONDANSETRON INJ 2 MG/ML 2 ML VIAL IV PRN (20:00)
[2017-09-27] MEDS ORDERED: ALUMINUM/MAGNESIUM/SIMETH (MAALOX MAX) 30 ML UDC PO PRN (20:00)
[2017-09-27] MEDS ORDERED: MAGNESIUM HYDROXIDE SUSP 30 ML UDC PO PRN (20:00)
[2017-09-27] MEDS ORDERED: ACETAMINOPHEN 325 MG TAB PO PRN (20:00)
[2017-09-27] MEDS ORDERED: NITROGLYCERIN 0.4 MG SL PER TAB CHARGE SL PRN (20:00)
[2017-09-27] MEDS ORDERED: POLYETHYLENE (MIRALAX) 17 GM PACK PO PRN (20:00)
--- NOTE | 2017-09-27 20:27 | History and Physical ---
History & Physical Date & Time of Service: Sep 27, 2017 at 20:27 Chief Complaint: Acute Blood Loss Anemia Primary Care Physician: Tegan Persaud M.D. History of Present Illness Source: patient, family, clinic records, hospital records 82 yo F recently admitted 09/12-09/16 for unprovoked Left LE DVT/PE s/p currently IVC catheter placement, placed on Xarelto currently presenting with bright red blood per rectum. Patient was discharged 09/16 with follow up to Dr Dc, with plan for repeat of her contrast CT and follow up with vascular surgeon for the possible IVC filter removal 6 to 8 weeks after d/c.Patient followed with Dr Dc for PE 09/22 and noted blood in stool and was told to come in to [facility] if she noticed worsening symptoms or sign of anemia. According to patient, blood in stool started 09/21 She reports 2 episodes bright red blood both in toiler bowl and tissue. She saw Dr. Dc for a scheduled appointment on 09/22. Labs ordered 09/22 showed h/h of 9.9/30.6, PT/INR/ PTT . This was repeated on 09/26 with H/H of 7.7 /24.1. Patient was called today by Dr. Dc's office regarding lab results yesterday and suggested patient be admitted today. She also reports loose stools 1-2 day which resolved this morning.She denies Chest pain, sob, weakness, fatigue, abdominal pain, fevers, chills, N/V. She denies any other bleeding events on xarelto. Patient reports she took one xarelto (15mg) today. She denies ever having a screening colonoscopy although her PCP ( Dr. Persaud ) did recommend it. Past Medical/Surgical History Medical Problems: (1) Anemia (2) Bilateral pulmonary embolism (3) Deep vein thrombosis (DVT) of left lower extremity (4) GI bleed (5) Osteoarthritis Surgical HX IVC filter Thyroglossal duct excision Family History FH: diabetes mellitus CAD, DM Social History Smoking Status: Never Smoker Alcohol Use: none Drug Use: none Marital Status: Housing status: lives alone Occupational Status: retired Allergies Coded Allergies: No Known Allergies (Unverified , 09/12/17) Home Medications Scheduled Xbdbjaliggp-Yusaqkmlnfp-Uuvrxm (Move Free [employer] [facility] Ad), 1 TAB PO QAM Rivaroxaban (Xarelto), 15 MG PO BID Review of Systems Constitutional: No fever, No chills, No weakness Respiratory: No cough, No sputum, No shortness of breath, No hemoptysis Abdomen: + GI bleeding, No pain, No nausea, No vomiting, No diarrhea, No constipation Genitourinary - Female: No dysuria, No urinary frequency, No urinary urgency Neurologic: No weakness, No numbness/tingling Endocrine: No fatigue Hematologic / Lymphatic: + abnormal bleeding/bruising (GI bleed), No clotting problems, No swollen lymph nodes Integumentary: No rash, No itch Physical Exam Vital Signs Date Time Temp Pulse Resp B/P (MAP) Pulse Ox O2 Delivery O2 Flow Rate FiO2 09/27/17 19:47 37.2 96 16 115/56 Room Air GENERAL: alert, well appearing, well nourished, no distress EYE EXAM: conjunctival pallor, PERRL and EOM's grossly intact OROPHARYNX: no exudate, no erythema, lips, buccal mucosa, and tongue normal and mucous membranes are moist NECK: supple, no nuchal rigidity, no adenopathy, non-tender LUNGS: Clear to auscultation. Normal chest wall mechanics HEART: no murmurs, S1 normal and S2 normal ABDOMEN: abdomen soft, non-tender, normo-active bowel sounds, no masses, no rebound or guarding. BACK: Back is symmetrical on inspection and there is no deformity SKIN: no rashes and no bruising UPPER EXTREMITIES: pallor in palmar creases LOWER EXTREMITIES: No pitting edema. NEURO EXAM: Normal sensorium, cranial nerves II-XII grossly intact, normal speech Impression Assessment and Plan 82 yo F recently admitted 09/12-09/15 for LLE DVT/PE s/p IVC Filter, placed on Xarelto presenting with suspected GI bleed, worsening anemia Anemia, due to suspected GI Bleed in setting of Xarelto (15 mg BID) - currently asx, vital signs stable,no abdominal pain - H/H (09/26/16) 7.7/24.2--> () 9.9/30.6 - likely secondary to GI bleed given patients report of bright red blood per rectum - GI consulted - NPO - Protonix 40 BID IV - IV NS 75 mls/hr - F/u cbc, cmp, pt/inr, Check h/h q8h - blood type/ cross, 2 units on hold H/O DVT/PE - Xarelto held for portable GI Bleed Arthritis - Glucosamine held DVT PPX - chemical contraindicated for GI bleed - mechanical held for recent DVT Code status: Full Resuscitation Advanced Directives Existing Living Will: Yes Existing Power of Corporate Securities Research Analyst: Yes Resuscitation Status VTE Prophylaxis Will order VTE Prophylaxis: No Reason for no VTE drug order: Contraindicated (GI Bleed) Reason no Mechanical VTE Order: Contraindicated (recent DVT) Social Service Consult >80 yr.& Lives Alone Note Total Time: Critical Care 30 - 74 minutes Resident Tracking Resident Involvement: Resident Care Provided Care Provided: Adult Hospital Medicine History Patient seen and examined, chart reviewed, case discussed with Dr. Tena and I agree with his assessment and plan as documented above. Briefly, patient is an 82yo female who was recently diagnosed with extensive RLE DVT and bilateral PEs 10April 2017. She was started on Xarelto for anticoagulation, and IVC filter was placed and she was discharged home in stable condition. She reports two episodes of BRBPR starting last evening and Monday morning. She was seen outpatient by Pulmonary and had labs drawn which showed an acute drop in H/ H, 7.7/24.1. Patient was instructed to come to [facility]. Presently she is feeling well. No CP/SOB. She has been trying to increase her activity since her recent admission. She reports that she feels tired with exertion but does not become winded or SOB. Otherwise no complaints. No history of prior colonoscopy. On physical exam she is afebrile, HD stable. NAD. HEENT exam is unremarkable. Heart +S1/S2, regular, no m/r/g, Lungs CTA, Abdomen benign, extremities with trace pitting edema of LLE. Labs ordered Assessment: 82yo female with recently diagnosed DVT/PE's s/p IVC filter on Xarelto anticoagulation presenting with BRBPR and anemia 1. LGIB -Will admit for suspected LGIB -H/H q 8 hours. Transfuse for acute drop, active bleeding or Hg < 7 -GI consultation, possible colonoscopy in the AM -Hold anticoagulation 2. PE - patient will need to be anticoagulated after cleared by GI. Would not resume Xarelto as patient had a bleeding event. 3. DVT - as above. Patient will need to be on anticoagulation therapy. She will need to followup to have her IVC filter removed as previously planned 4. Followup CT scan of the chest in 2-3 months as previously planned Remainder of plan as above
[2017-09-27] MEDS: PANTOprazole INJ 40 MG in SYRINGE 0 ML IV SCH (21:13)
[2017-09-27 21:17] LABS: BASO % 0.4 %; BASO ABS # 0.05 K/uL (0-0.2); EOS % 2.1 %; EOS ABS # 0.24 K/uL (0-0.5); HEMATOCRIT 21.7 % (37-47); IG# 0.04 K/uL (0.00-0.02); LYMPH ABS # 2.03 K/uL (1.2-3.4); MEAN CELL VOLUME 83.1 fL (80-100); MEAN CORPUSCULAR HEMOGLOBIN 26.8 pg (25-34); MEAN PLATELET VOLUME 9.2 fL (7.4-10.4); MONO % 5.3 %; NEUT % 73.8 %; NEUT ABS # 8.31 K/uL (1.4-6.5); PLATELET COUNT 357 K/uL (130-400); RED CELL DISTRIBUTION WIDTH CV 15.8 % (11.5-14.5); RED CELL DISTRIBUTION WIDTH SD 48.1 fL (36.4-46.3); WHITE BLOOD COUNT 11.27 K/uL (4.8-10.8)
[2017-09-27 21:33] LABS: INR 1.1 (0.9-1.1); PTT PATIENT 31.9 SECONDS (21.0-31.0)
[2017-09-27 21:38] LABS: ALBUMIN 2.6 gm/dl (3.4-5.0); CALCIUM 8.6 mg/dl (8.5-10.1); CREATININE 0.7 mg/dl (0.60-1.20); POTASSIUM 3.4 mmol/L (3.5-5.1); TOTAL PROTEIN 6.5 gm/dl (6.4-8.2)
[2017-09-27 21:39] LABS: MEAN CORPUSCULAR HGB CONC 32.3 g/dl (32-36)
[2017-09-27 23:49] VITALS: BP 116/70; PULSE 79; TEMP 37; O2SAT 100
[2017-09-28] VITALS (11 sets, daily range): BP systolic 108–127; BP diastolic 64–80; PULSE 64–80; TEMP 36.5–36.8; O2SAT 98–100
[2017-09-28] MEDS ORDERED: POTASSIUM CHLORIDE 10 MEQ TABCR PO ONE (00:15)
[2017-09-28 07:42] LABS: BASO % 0.4 %; BASO ABS # 0.04 K/uL (0-0.2); EOS % 2.3 %; EOS ABS # 0.25 K/uL (0-0.5); HEMATOCRIT 28.5 % (37-47); HEMOGLOBIN 9.3 g/dL (12.0-16.0); IG# 0.03 K/uL (0.00-0.02); LYMPH % 14.8 %; LYMPH ABS # 1.59 K/uL (1.2-3.4); MEAN CELL VOLUME 83.8 fL (80-100); MEAN CORPUSCULAR HEMOGLOBIN 27.4 pg (25-34); MEAN CORPUSCULAR HGB CONC 32.6 g/dl (32-36); MONO % 6.8 %; MONO ABS # 0.73 K/uL (0.11-0.59); NEUT % 75.4 %; NEUT ABS # 8.09 K/uL (1.4-6.5); PLATELET COUNT 325 K/uL (130-400); RED CELL DISTRIBUTION WIDTH CV 15.3 % (11.5-14.5); RED CELL DISTRIBUTION WIDTH SD 46.9 fL (36.4-46.3); WHITE BLOOD COUNT 10.73 K/uL (4.8-10.8)
[2017-09-28 08:32] LABS: ALBUMIN 2.3 gm/dl (3.4-5.0); CALCIUM 8.4 mg/dl (8.5-10.1); CREATININE 0.72 mg/dl (0.60-1.20); POTASSIUM 4.6 mmol/L (3.5-5.1); TOTAL PROTEIN 6.1 gm/dl (6.4-8.2)
[2017-09-28] MEDS: PANTOprazole INJ 40 MG in SYRINGE 0 ML IV SCH ×2 (09:26→20:26)
--- NOTE | 2017-09-28 10:05 | Gastrointestinal Consultation ---
Gastrointestinal Consultation Date of Consultation: Sep 28, 2017 Attending Physician: Dr. Jeet Aquino Consulting Physician: Sofia Lira PA-C Reason for Consultation: Rectal bleeding, anemia History of Present Illness Patient is a 82 year old female with a past medical history of anemia, B/L PE, DVT s/p IVC filter, and osteoarthritis who presented to the ER after experiencing 7 days of BRBPR. She recently was hospitalized with an extensive DVT/PE for which she is on Xarelto. She reports that she began noticing what she describes as a significant amount of blood in the toilet, in her stool, and on the toilet tissue beginning last week. She reports she felt abdominal discomfort when this began occurring. She reports that she continue to notice blood loss, despite her abdominal pain resolving. She had laboratory studies performed on 09/22 that indicated an H/H of 9.9/30.6. A repeat on 09/26 indicated an H/H of 7.7/24.1. She was instructed by her structural steel worker helper to present to the hospital. At present she denies loose stools. She denies abdominal pain. Her last dose of Xarelto was on 09/27 (15 mg). She has been previously encouraged to have a colonoscopy (by her PCP) but has previously declined. Since admission she has been given 2 units PRBCs and her H/H is presently 9.3/ 28.5. She has not yet noticed any bleeding today. She denies previous GI issues (personal or family history). Past Medical/Surgical History Anemia, B/L PE, DVT s/p IVC filter, osteoarthritis Past Medical History: Anemia, B/L PE, DVT, osteoarthritis Past Surgical History: IVC filter, thyroglossal duct excision Family History FH: diabetes mellitus Social History Smoking Status: Never Smoker Drug Use: none Marital Status: Occupation Status: retired Allergies Coded Allergies: No Known Allergies (Unverified , 09/12/17) Current Medications Home Meds and Scripts Medications Dose Route/Sig Max Daily Dose Days Date Category Xarelto (Rivaroxaban) 15 Mg Tab 15 Mg PO BID 20 09/15/17 Rx Move Free [facility] Ad (Phaarrpikcf-Pfkjxoepbts-Vtwfdv) 1 Tab Tab 1 Tab PO QAM 09/12/17 Reported Review of Systems Constitutional: No fever, No chills Eyes: No problem reported Respiratory: No cough, No shortness of breath, No dyspnea on exertion Cardiac: No chest pain Abdomen: No pain, No nausea, No vomiting, No diarrhea, No constipation, No GI bleeding Musculoskeletal: No joint pain Neuro: No problem reported Psych: No problem reported Skin: No problem reported Physical Exam Date Time Temp Pulse Resp B/P (MAP) Pulse Ox O2 Delivery O2 Flow Rate FiO2 09/28/17 08:00 Room Air 09/28/17 07:23 36.6 80 18 122/67 (85) 100 Room Air 09/28/17 04:00 Room Air 09/28/17 03:45 36.6 66 18 108/67 99 09/28/17 02:45 36.7 79 18 118/68 99 09/28/17 02:15 36.7 71 18 127/70 99 09/28/17 02:00 36.8 74 18 125/75 (92) 99 Room Air 09/28/17 01:21 36.5 77 20 114/68 99 09/28/17 00:51 36.7 78 16 125/71 100 09/27/17 23:59 Room Air 09/27/17 23:49 37.0 79 18 116/70 (85) 100 Room Air 09/27/17 20:00 Room Air 09/27/17 19:47 37.2 96 16 115/56 Room Air General Appearance: WD/WN, no apparent distress Eyes: normal inspection, PERRL ENT: hearing grossly normal Respiratory/Chest: chest non-tender, lungs clear Cardiovascular: regular rate, rhythm Abdomen: normal bowel sounds, non tender, soft Extremities: non-tender Neurologic/Psych: alert, oriented x 3 Skin: normal color Laboratory Results Last 24 Hours Test 09/27/17 19:56 09/27/17 20:52 09/28/17 07:15 White Blood Count 11.27 K/uL 10.73 K/uL Red Blood Count 2.61 M/uL 3.40 M/uL Hemoglobin 7.0 g/dL 9.3 g/dL Hematocrit 21.7 % 28.5 % Mean Corpuscular Volume 83.1 fL 83.8 fL Mean Corpuscular Hemoglobin 26.8 pg 27.4 pg Mean Corpuscular Hemoglobin Concent 32.3 g/dl 32.6 g/dl Platelet Count 357 K/uL 325 K/uL Mean Platelet Volume 9.2 fL 9.0 fL Neutrophils (%) (Auto) 73.8 % 75.4 % Lymphocytes (%) (Auto) 18.0 % 14.8 % Monocytes (%) (Auto) 5.3 % 6.8 % Eosinophils (%) (Auto) 2.1 % 2.3 % Basophils (%) (Auto) 0.4 % 0.4 % Neutrophils # (Auto) 8.31 K/uL 8.09 K/uL Lymphocytes # (Auto) 2.03 K/uL 1.59 K/uL Monocytes # (Auto) 0.60 K/uL 0.73 K/uL Eosinophils # (Auto) 0.24 K/uL 0.25 K/uL Basophils # (Auto) 0.05 K/uL 0.04 K/uL RDW Standard Deviation 48.1 fL 46.9 fL RDW Coefficient of Variation 15.8 % 15.3 % Immature Granulocyte % (Auto) 0.4 % 0.3 % Immature Granulocyte # (Auto) 0.04 K/uL 0.03 K/uL Red Blood Cell Morphology Unremarkable Prothrombin Time 11.6 SECONDS Prothromb Time International Ratio 1.1 Activated Partial Thromboplast Time 31.9 SECONDS Partial Thromboplastin Ratio 1.2 Sodium Level 136 mmol/L 141 mmol/L Potassium Level 3.4 mmol/L 4.6 mmol/L Chloride Level 104 mmol/L 110 mmol/L Carbon Dioxide Level 26 mmol/L 28 mmol/L Anion Gap 6.0 mmol/L 3.0 mmol/L Blood Urea Nitrogen 11 mg/dl 8 mg/dl Creatinine 0.70 mg/dl 0.72 mg/dl Est Creatinine Clear Calc Drug Dose 60.1 ml/min 58.4 ml/min Estimated GFR () 94.8 91.7 Estimated GFR (Non- 81.8 79.1 BUN/Creatinine Ratio 15.1 11.5 Random Glucose 99 mg/dl 93 mg/dl Calcium Level 8.6 mg/dl 8.4 mg/dl Total Bilirubin 0.2 mg/dl 1.0 mg/dl Aspartate Amino Transf (AST/SGOT) 21 U/L 19 U/L Alanine Aminotransferase (ALT/SGPT) 18 U/L 15 U/L Alkaline Phosphatase 73 U/L 68 U/L Total Protein 6.5 gm/dl 6.1 gm/dl Albumin 2.6 gm/dl 2.3 gm/dl Globulin 3.9 gm/dl 3.8 gm/dl Albumin/Globulin Ratio 0.7 0.6 Impression Patient is a 82 year old female with anemia & rectal bleeding in the setting of anticoagulation with Xarelto therapy. Her H/H is 9.3/28.5 after 2 units PRBCs. Plan 1) Patient is now agreeable to colonoscopy evaluation. Clear liquids today. Will place orders for prep tonight. 2) Continue to monitor H/H. 3) Continue Protonix 40 mg IV BID. 4) Supportive care per primary team. Thank you for allowing us to participate in the care of this patient. If you should have further questions or concerns, do not hesitate to contact us. Agree with RODNEY Sarmiento as above Abd: Soft, NT, ND, +BS Colonoscopy in AM following bowel prep tonight
--- NOTE | 2017-09-28 17:22 | Family Medicine Progress Note ---
Progress Note Date of Service Sep 28, 2017. Subjective Pt evaluation today including: conversation w/ patient, physical exam, chart review, lab review Pain: denies any discomfort PO Intake: NPO this AM Voiding: no voiding problems Pt reports 2 large bloody BMs last week and Monday (BRBPR mixed with stool and in tissue). Pt also reports repeat bleeding episodes on Monday and Monday. However, had a normal brown non-bloody BM yesterday. Had labwork done for recent admission with Dr. Dc on Monday and was called to go to the ED for low Hgb yesterday. Pt denies ever getting a colonoscopy or mammogram. 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 Denies any abdominal pain, n/v, diarrhea /constipation. Otherwise asymptomatic. Constitutional: No fever Respiratory: No shortness of breath Cardiovascular: No chest pain Abdomen: + GI bleeding, No pain, No nausea, No vomiting, No diarrhea, No constipation Female : No dysuria Medications Current Inpatient Medications Medications (Trade) Dose Ordered Sig/Ramila Route Start Time Stop Time Status Last Admin Dose Admin Acetaminophen (Tylenol Tab) 650 mg Q4H PRN PO 09/27/17 20:00 10/27/17 19:59 Al Hydrox/Mg Hydrox/Simethicone (Maalox Max Susp) 15 ml Q4H PRN PO 09/27/17 20:00 10/27/17 19:59 Magnesium Hydroxide (Milk Of Magnesia Susp) 30 ml Q12H PRN PO 09/27/17 20:00 10/27/17 19:59 Ondansetron HCl (Zofran Inj) 4 mg Q6H PRN IV 09/27/17 20:00 10/27/17 19:59 Nitroglycerin (Nitrostat Tab) 0.4 mg UD PRN SL 09/27/17 20:00 10/27/17 19:59 Polyethylene (Miralax Powder Packet) 17 gm DAILY PRN PO 09/27/17 20:00 10/27/17 19:59 Pantoprazole Sodium 40 mg/ Syringe 10 ml @ 5 mls/min Q12@0900,2100 IV 09/27/17 21:00 10/27/17 20:59 09/28/17 09:26 5 MLS/MIN Polyethylene Glycol/ Electrolytes (Golytely Soln) 8 dose 0300,1800 PO 09/28/17 18:00 09/29/17 03:01 Objective Vital Signs Date Time Temp Pulse Resp B/P (MAP) Pulse Ox O2 Delivery O2 Flow Rate FiO2 09/28/17 16:00 Room Air 09/28/17 15:51 36.6 71 20 126/80 (95) 98 Room Air 09/28/17 12:00 Room Air 09/28/17 11:29 36.5 66 18 117/71 (86) 99 Room Air 09/28/17 08:00 Room Air 09/28/17 07:23 36.6 80 18 122/67 (85) 100 Room Air 09/28/17 04:00 Room Air 09/28/17 03:45 36.6 66 18 108/67 99 09/28/17 02:45 36.7 79 18 118/68 99 09/28/17 02:15 36.7 71 18 127/70 99 09/28/17 02:00 36.8 74 18 125/75 (92) 99 Room Air 09/28/17 01:21 36.5 77 20 114/68 99 09/28/17 00:51 36.7 78 16 125/71 100 09/27/17 23:59 Room Air 09/27/17 23:49 37.0 79 18 116/70 (85) 100 Room Air 09/27/17 20:00 Room Air 09/27/17 19:47 37.2 96 16 115/56 Room Air Physical Exam General Appearance: no apparent distress Eyes: normal inspection Neck: supple Respiratory/Chest: lungs clear, normal breath sounds Cardiovascular: regular rate, rhythm, no murmur Abdomen: normal bowel sounds, non tender, soft Extremities: non-tender, no pedal edema Neurologic/Psychiatric: alert, oriented x 3 Skin: warm/dry Laboratory Results 09/28/17 07:15 Red Blood Count 3.40, Mean Corpuscular Volume 83.8, Mean Corpuscular Hemoglobin 27.4, Mean Corpuscular Hemoglobin Concent 32.6, Mean Platelet Volume 9.0, Neutrophils (%) (Auto) 75.4, Lymphocytes (%) (Auto) 14.8, Monocytes (%) (Auto) 6.8, Eosinophils (%) (Auto) 2.3, Basophils (%) (Auto) 0.4, Neutrophils # (Auto) 8.09, Lymphocytes # (Auto) 1.59, Monocytes # (Auto) 0.73, Eosinophils # (Auto) 0.25, Basophils # (Auto) 0.04 09/28/17 07:15 Test 09/27/17 20:52 09/28/17 07:15 09/28/17 12:40 Red Blood Cell Morphology Unremarkable Prothrombin Time 11.6 SECONDS (9.0-12.0) Prothromb Time International Ratio 1.1 (0.9-1.1) Activated Partial Thromboplast Time 31.9 SECONDS (21.0-31.0) Partial Thromboplastin Ratio 1.2 White Blood Count 10.73 K/uL (4.8-10.8) Red Blood Count 3.40 M/uL (4.2-5.4) Hemoglobin 9.3 g/dL (12.0-16.0) Hematocrit 28.5 % (37-47) Mean Corpuscular Volume 83.8 fL (80-100) Mean Corpuscular Hemoglobin 27.4 pg (25-34) Mean Corpuscular Hemoglobin Concent 32.6 g/dl (32-36) Platelet Count 325 K/uL (130-400) Mean Platelet Volume 9.0 fL (7.4-10.4) Neutrophils (%) (Auto) 75.4 % Lymphocytes (%) (Auto) 14.8 % Monocytes (%) (Auto) 6.8 % Eosinophils (%) (Auto) 2.3 % Basophils (%) (Auto) 0.4 % Neutrophils # (Auto) 8.09 K/uL (1.4-6.5) Lymphocytes # (Auto) 1.59 K/uL (1.2-3.4) Monocytes # (Auto) 0.73 K/uL (0.11-0.59) Eosinophils # (Auto) 0.25 K/uL (0-0.5) Basophils # (Auto) 0.04 K/uL (0-0.2) RDW Standard Deviation 46.9 fL (36.4-46.3) RDW Coefficient of Variation 15.3 % (11.5-14.5) Immature Granulocyte % (Auto) 0.3 % Immature Granulocyte # (Auto) 0.03 K/uL (0.00-0.02) Anion Gap 3.0 mmol/L (3-11) Est Creatinine Clear Calc Drug Dose 58.4 ml/min Estimated GFR () 91.7 Estimated GFR (Non- 79.1 BUN/Creatinine Ratio 11.5 (10-20) Calcium Level 8.4 mg/dl (8.5-10.1) Total Bilirubin 1.0 mg/dl (0.2-1) Aspartate Amino Transf (AST/SGOT) 19 U/L (15-37) Alanine Aminotransferase (ALT/SGPT) 15 U/L (12-78) Alkaline Phosphatase 68 U/L (45-117) Total Protein 6.1 gm/dl (6.4-8.2) Albumin 2.3 gm/dl (3.4-5.0) Globulin 3.8 gm/dl (2.5-4.0) Albumin/Globulin Ratio 0.6 (0.9-2) Stool Occult Blood POSITIVE (NEGATIVE) Assessment and Plan 82 yo F recently admitted 09/12-09/15 for LLE DVT/PE s/p IVC Filter, and Xarelto who presented with BRBPR concerning for possible lower GI bleed. Hgb was 11 on discharge on 09/15 and had dropped to 7 on admission. Received 2 units of transfusion. GI consulted for colonoscopy tomorrow to rule out active GI bleeding/malignancy. Anemia, concern for lowe GI beed (report of BRBPR) in setting of Xarelto (15 mg BID) use for recent DVT/PE - Vital stable, asymptomatic - H/H on 09/15 - 11/33.9 and on 09/27 - 7/21.7 - Received 2 units of pRBC and H/H improved to 9.3/28.5 - GI consulted - colonoscopy tomorrow - bowel prep ON and NPO after midnight - Continue Protonix 40 BID IV H/O DVT/PE - Xarelto held for concern of GI Bleed - Consider transitioning to alternative agent on dc Arthritis - Glucosamine held DVT PPX - chemical contraindicated for GI bleed - mechanical held for recent DVT Code status: Full Resuscitation Resident Physician Supervision Note: I was present with Dr. Salinas during the history and exam. I discussed the case with the resident and agree with the findings and plan as documented in the note. Any exceptions or clarifications are listed here: Greatest fear would be that previous unprovoked VTE was indeed result of occult malignancy. Agree with colonoscopy this admission. Hopefully this is negative, and if it is, will defer to her PCP if further workup is desired (she has never had a mammogram). Decision regarding anticoagulation will depend on results of colonoscopy. It is noted that the patient has an IVC filter in place as well. Documented By: Markell Link Resident Involvement: Resident Care Provided Care Provided: Adult [facility]
[2017-09-28] MEDS: LAVAGE SOLUTION 4000ML PO SCH (18:04)
[2017-09-28 20:41] LABS: HEMATOCRIT 29.7 % (37-47); HEMOGLOBIN 9.8 g/dL (12.0-16.0)
[2017-09-29] VITALS (8 sets, daily range): BP systolic 101–147; BP diastolic 61–82; PULSE 59–79; TEMP 36.5–36.6; O2SAT 96–100
[2017-09-29] MEDS: LAVAGE SOLUTION 4000ML PO SCH (03:27)
[2017-09-29 05:30] LABS: BASO % 0.4 %; BASO ABS # 0.04 K/uL (0-0.2); EOS % 4.1 %; EOS ABS # 0.46 K/uL (0-0.5); HEMATOCRIT 30.7 % (37-47); HEMOGLOBIN 10.3 g/dL (12.0-16.0); IG# 0.04 K/uL (0.00-0.02); LYMPH % 16.2 %; MEAN CELL VOLUME 84.1 fL (80-100); MEAN CORPUSCULAR HEMOGLOBIN 28.2 pg (25-34); MEAN CORPUSCULAR HGB CONC 33.6 g/dl (32-36); MEAN PLATELET VOLUME 9.7 fL (7.4-10.4); MONO % 8.1 %; NEUT % 70.8 %; NEUT ABS # 7.89 K/uL (1.4-6.5); PLATELET COUNT 393 K/uL (130-400); RED CELL DISTRIBUTION WIDTH CV 15.5 % (11.5-14.5); RED CELL DISTRIBUTION WIDTH SD 47.9 fL (36.4-46.3); WHITE BLOOD COUNT 11.13 K/uL (4.8-10.8)
[2017-09-29 05:50] LABS: ALBUMIN 2.7 gm/dl (3.4-5.0); CREATININE 0.7 mg/dl (0.60-1.20); POTASSIUM 4.4 mmol/L (3.5-5.1)
[2017-09-29] MEDS: PANTOprazole INJ 40 MG in SYRINGE 0 ML IV SCH ×2 (08:00→20:56)
--- NOTE | 2017-09-29 08:48 | Family Medicine Progress Note ---
Progress Note Date of Service Sep 29, 2017. Subjective Pt evaluation today including: conversation w/ patient, physical exam, chart review, lab review Pain: denies any pain PO Intake: NPO for colonoscopy Voiding: no voiding problems This AM reports initially dark stools but non-bloody during bowel clean out. Otherwise asymptomatic this AM. Constitutional: No fever Respiratory: No shortness of breath Cardiovascular: No chest pain Abdomen: No pain, No nausea, No vomiting Female : No dysuria Medications Current Inpatient Medications Medications (Trade) Dose Ordered Sig/Ramila Route Start Time Stop Time Status Last Admin Dose Admin Acetaminophen (Tylenol Tab) 650 mg Q4H PRN PO 09/27/17 20:00 10/27/17 19:59 Al Hydrox/Mg Hydrox/Simethicone (Maalox Max Susp) 15 ml Q4H PRN PO 09/27/17 20:00 10/27/17 19:59 Magnesium Hydroxide (Milk Of Magnesia Susp) 30 ml Q12H PRN PO 09/27/17 20:00 10/27/17 19:59 Ondansetron HCl (Zofran Inj) 4 mg Q6H PRN IV 09/27/17 20:00 10/27/17 19:59 Nitroglycerin (Nitrostat Tab) 0.4 mg UD PRN SL 09/27/17 20:00 10/27/17 19:59 Polyethylene (Miralax Powder Packet) 17 gm DAILY PRN PO 09/27/17 20:00 10/27/17 19:59 Pantoprazole Sodium 40 mg/ Syringe 10 ml @ 5 mls/min Q12@0900,2100 IV 09/27/17 21:00 10/27/17 20:59 09/29/17 08:00 5 MLS/MIN Objective Vital Signs Date Time Temp Pulse Resp B/P (MAP) Pulse Ox O2 Delivery O2 Flow Rate FiO2 09/29/17 07:43 36.6 79 18 147/80 (102) 100 Room Air 09/29/17 04:00 Room Air 09/29/17 03:48 36.5 61 18 143/77 (99) 100 Room Air 09/29/17 00:00 Room Air 09/28/17 23:24 36.5 72 18 122/64 (83) 100 Room Air 09/28/17 19:50 Room Air 09/28/17 19:42 36.5 64 18 124/75 (91) 100 Room Air 09/28/17 16:00 Room Air 09/28/17 15:51 36.6 71 20 126/80 (95) 98 Room Air 09/28/17 12:00 Room Air 09/28/17 11:29 36.5 66 18 117/71 (86) 99 Room Air Physical Exam General Appearance: no apparent distress Eyes: normal inspection Neck: supple Respiratory/Chest: lungs clear, normal breath sounds Cardiovascular: regular rate, rhythm, no murmur Abdomen: normal bowel sounds, non tender, soft Extremities: non-tender, no pedal edema Skin: warm/dry Laboratory Results 09/29/17 04:46 Red Blood Count 3.65, Mean Corpuscular Volume 84.1, Mean Corpuscular Hemoglobin 28.2, Mean Corpuscular Hemoglobin Concent 33.6, Mean Platelet Volume 9.7, Neutrophils (%) (Auto) 70.8, Lymphocytes (%) (Auto) 16.2, Monocytes (%) (Auto) 8.1, Eosinophils (%) (Auto) 4.1, Basophils (%) (Auto) 0.4, Neutrophils # (Auto) 7.89, Lymphocytes # (Auto) 1.80, Monocytes # (Auto) 0.90, Eosinophils # (Auto) 0.46, Basophils # (Auto) 0.04 09/29/17 04:46 Test 09/28/17 12:40 09/29/17 04:46 Stool Occult Blood POSITIVE (NEGATIVE) White Blood Count 11.13 K/uL (4.8-10.8) Red Blood Count 3.65 M/uL (4.2-5.4) Hemoglobin 10.3 g/dL (12.0-16.0) Hematocrit 30.7 % (37-47) Mean Corpuscular Volume 84.1 fL (80-100) Mean Corpuscular Hemoglobin 28.2 pg (25-34) Mean Corpuscular Hemoglobin Concent 33.6 g/dl (32-36) Platelet Count 393 K/uL (130-400) Mean Platelet Volume 9.7 fL (7.4-10.4) Neutrophils (%) (Auto) 70.8 % Lymphocytes (%) (Auto) 16.2 % Monocytes (%) (Auto) 8.1 % Eosinophils (%) (Auto) 4.1 % Basophils (%) (Auto) 0.4 % Neutrophils # (Auto) 7.89 K/uL (1.4-6.5) Lymphocytes # (Auto) 1.80 K/uL (1.2-3.4) Monocytes # (Auto) 0.90 K/uL (0.11-0.59) Eosinophils # (Auto) 0.46 K/uL (0-0.5) Basophils # (Auto) 0.04 K/uL (0-0.2) RDW Standard Deviation 47.9 fL (36.4-46.3) RDW Coefficient of Variation 15.5 % (11.5-14.5) Immature Granulocyte % (Auto) 0.4 % Immature Granulocyte # (Auto) 0.04 K/uL (0.00-0.02) Anion Gap 3.0 mmol/L (3-11) Est Creatinine Clear Calc Drug Dose 60.0 ml/min Estimated GFR () 94.8 Estimated GFR (Non- 81.8 BUN/Creatinine Ratio 8.5 (10-20) Calcium Level 9.0 mg/dl (8.5-10.1) Total Bilirubin 0.6 mg/dl (0.2-1) Aspartate Amino Transf (AST/SGOT) 20 U/L (15-37) Alanine Aminotransferase (ALT/SGPT) 18 U/L (12-78) Alkaline Phosphatase 78 U/L (45-117) Total Protein 7.0 gm/dl (6.4-8.2) Albumin 2.7 gm/dl (3.4-5.0) Globulin 4.3 gm/dl (2.5-4.0) Albumin/Globulin Ratio 0.6 (0.9-2) Assessment and Plan 82 yo F recently admitted 09/12-09/15 for LLE DVT/PE s/p IVC Filter, and Xarelto who presented with BRBPR concerning for possible lower GI bleed. Hgb was 11 on discharge on 09/15 and had dropped to 7 on admission. Received 2 units of transfusion now Hgb 10.3. GI consulted for colonoscopy tomorrow to rule out active GI bleeding/malignancy. Anemia, concern for lowe GI beed (report of BRBPR) in setting of Xarelto (15 mg BID) use for recent DVT/PE - Vital stable, asymptomatic - H/H on 09/15 - /33.9 and on 09/27 - 12/23.7 - Received 2 units of pRBC and H/H improved to 10.3/30.7 - GI consulted - colonoscopy today - NPO for procedure - Continue Protonix 40 BID IV H/O DVT/PE - Xarelto held for concern of GI Bleed - Consider transitioning to alternative agent on dc Arthritis - Glucosamine held DVT PPX - chemical contraindicated for GI bleed - mechanical held for recent DVT Code status: Full Resuscitation Resident Involvement: Resident Care Provided Care Provided: Adult [facility] Medicine Assessment/Plan Resident Physician Supervision Note: I was present with Dr. Salinas during the history and exam. I discussed the case with the resident and agree with the findings and plan as documented in the note. Any exceptions or clarifications are listed here: Pt resting comfortably in bed - resolution of dark stools towards the end of bowel prep and presently feeling well, if a little fatigued. Awaiting results of colonoscopy - would much prefer restart AC if possible, likely with dose adjusted eliquis.
--- NOTE | 2017-09-29 10:04 | Gastroenterology Progress Note ---
Progress Note Date of Service: Sep 29, 2017 Subjective Pt evaluation today including: conversation w/ patient, physical exam, lab review, review of studies Patient is an 82 yo female hospitalized with rectal bleeding on Xarelto therapy. She has completed her bowel prep and is anxiously awaiting her colonoscopy today. She denies further bleeding. She denies abdominal pain. She offers no further complaints. She has been NPO. H/H is 10.3/30.7. Review of Systems Constitutional: No fever, No chills Respiratory: No cough Abdomen: No pain, No nausea, No vomiting, No GI bleeding Musculoskeletal: No joint pain Medications Current Inpatient Medications Medications (Trade) Dose Ordered Sig/Ramila Route Start Time Stop Time Status Last Admin Dose Admin Acetaminophen (Tylenol Tab) 650 mg Q4H PRN PO 09/27/17 20:00 10/27/17 19:59 Al Hydrox/Mg Hydrox/Simethicone (Maalox Max Susp) 15 ml Q4H PRN PO 09/27/17 20:00 10/27/17 19:59 Magnesium Hydroxide (Milk Of Magnesia Susp) 30 ml Q12H PRN PO 09/27/17 20:00 10/27/17 19:59 Ondansetron HCl (Zofran Inj) 4 mg Q6H PRN IV 09/27/17 20:00 10/27/17 19:59 Nitroglycerin (Nitrostat Tab) 0.4 mg UD PRN SL 09/27/17 20:00 10/27/17 19:59 Polyethylene (Miralax Powder Packet) 17 gm DAILY PRN PO 09/27/17 20:00 10/27/17 19:59 Pantoprazole Sodium 40 mg/ Syringe 10 ml @ 5 mls/min Q12@0900,2100 IV 09/27/17 21:00 10/27/17 20:59 09/29/17 08:00 5 MLS/MIN Objective Vital Signs Date Time Temp Pulse Resp B/P (MAP) Pulse Ox O2 Delivery O2 Flow Rate FiO2 09/29/17 08:00 Room Air 09/29/17 07:43 36.6 79 18 147/80 (102) 100 Room Air 09/29/17 04:00 Room Air 09/29/17 03:48 36.5 61 18 143/77 (99) 100 Room Air 09/29/17 00:00 Room Air 09/28/17 23:24 36.5 72 18 122/64 (83) 100 Room Air 09/28/17 19:50 Room Air 09/28/17 19:42 36.5 64 18 124/75 (91) 100 Room Air 09/28/17 16:00 Room Air 09/28/17 15:51 36.6 71 20 126/80 (95) 98 Room Air 09/28/17 12:00 Room Air 09/28/17 11:29 36.5 66 18 117/71 (86) 99 Room Air Physical Exam General Appearance: WD/WN, no apparent distress Eyes: normal inspection, PERRL ENT: hearing grossly normal Respiratory/Chest: chest non-tender, lungs clear Cardiovascular: regular rate, rhythm Abdomen: normal bowel sounds, non tender, soft Extremities: non-tender Neurologic/Psych: alert, oriented x 3 Skin: normal color Laboratory Results Last 24 Hours Test 09/28/17 12:40 09/28/17 20:32 09/29/17 04:46 Stool Occult Blood POSITIVE Hemoglobin 9.8 g/dL 10.3 g/dL Hematocrit 29.7 % 30.7 % White Blood Count 11.13 K/uL Red Blood Count 3.65 M/uL Mean Corpuscular Volume 84.1 fL Mean Corpuscular Hemoglobin 28.2 pg Mean Corpuscular Hemoglobin Concent 33.6 g/dl Platelet Count 393 K/uL Mean Platelet Volume 9.7 fL Neutrophils (%) (Auto) 70.8 % Lymphocytes (%) (Auto) 16.2 % Monocytes (%) (Auto) 8.1 % Eosinophils (%) (Auto) 4.1 % Basophils (%) (Auto) 0.4 % Neutrophils # (Auto) 7.89 K/uL Lymphocytes # (Auto) 1.80 K/uL Monocytes # (Auto) 0.90 K/uL Eosinophils # (Auto) 0.46 K/uL Basophils # (Auto) 0.04 K/uL RDW Standard Deviation 47.9 fL RDW Coefficient of Variation 15.5 % Immature Granulocyte % (Auto) 0.4 % Immature Granulocyte # (Auto) 0.04 K/uL Sodium Level 136 mmol/L Potassium Level 4.4 mmol/L Chloride Level 105 mmol/L Carbon Dioxide Level 28 mmol/L Anion Gap 3.0 mmol/L Blood Urea Nitrogen 6 mg/dl Creatinine 0.70 mg/dl Est Creatinine Clear Calc Drug Dose 60.0 ml/min Estimated GFR () 94.8 Estimated GFR (Non- 81.8 BUN/Creatinine Ratio 8.5 Random Glucose 97 mg/dl Calcium Level 9.0 mg/dl Total Bilirubin 0.6 mg/dl Aspartate Amino Transf (AST/SGOT) 20 U/L Alanine Aminotransferase (ALT/SGPT) 18 U/L Alkaline Phosphatase 78 U/L Total Protein 7.0 gm/dl Albumin 2.7 gm/dl Globulin 4.3 gm/dl Albumin/Globulin Ratio 0.6 Assessment and Plan Patient is an 82 yo female with anemia and lower GI bleeding. Her H/H is 10.3/ 30.7. Keep NPO. Proceed with colonoscopy today. Further recommendations pending results of endoscopic evaluation. Thank you for allowing us to participate in the care of this patient. If you should have any further questions or concerns, do not hesitate to contact us. Agree with RODNEY Sarmiento as above Abd: Soft, NT, ND, +BS Colonoscopy today for further evaluation of acute blood loss anemia.
[2017-09-29 12:46] LABS: HEMATOCRIT 28.7 % (37-47); HEMOGLOBIN 9.4 g/dL (12.0-16.0)
[2017-09-29] MEDS ORDERED: LIDOCAINE HCL 2% 2 ML VIAL (20MG/ML) ONE (14:33)
[2017-09-29] MEDS ORDERED: PROPOFOL IV EMULSION 10 MG/ML 20 ML VIAL IV ONE (14:33)
[2017-09-29] MEDS ORDERED: ENDOSCOPIC MARKER 5 ML SYR ONE (15:00)
--- NOTE | 2017-09-29 15:18 | GI REPORT ---
Patient Name: Ruth Cook Procedure Date: 09/29/2017 2:32 PM Date of : 1935 Admit Type: Inpatient Age: 82 Gender: Female Attending MD: Abdon Barcenas DO Procedure: Colonoscopy Providers: Abdon Barcenas DO Referring MD: Claudy Gillette Indications: Hematochezia, Acute post hemorrhagic anemia Medicines: Monitored Anesthesia Care Complications: No immediate complications. Estimated Blood Loss: Estimated blood loss was minimal. Procedure: Pre-Anesthesia Assessment: - Prior to the procedure, a History and Physical was performed, and patient medications and allergies were reviewed. The patient's tolerance of previous anesthesia was also reviewed. The risks and benefits of the procedure and the sedation options and risks were discussed with the patient. All questions were answered, and informed consent was obtained. Prior Anticoagulants: The patient has taken Xarelto (rivaroxaban), last dose was 2 days prior to procedure. ASA Grade Assessment: III - A patient with severe systemic disease. After reviewing the risks and benefits, the patient was deemed in satisfactory condition to undergo the procedure. After I obtained informed consent, the scope was passed under direct vision. Throughout the procedure, the patient's blood pressure, pulse, and oxygen saturations were monitored continuously. The scope was introduced through the anus with the intention of advancing to the ileum. The scope was advanced to the descending colon before the procedure was aborted. Medications were given. The colonoscopy was performed without difficulty. The patient tolerated the procedure well. The colonoscopy was aborted due to a partially obstructing mass. The rectum was photographed. Findings: The perianal and digital rectal examinations were normal. An infiltrative partially obstructing large mass was found in the sigmoid colon 35 cm from the anal verge. The mass was circumferential. The mass measured six cm in length. In addition, its diameter measured twenty mm. Oozing was present. This was biopsied with a cold forceps for histology. Area was tattooed with an injection of 5 mL of Dimple ink. Non-bleeding internal hemorrhoids were found during retroflexion. The hemorrhoids were small. Impression: - The procedure was aborted due to partially obstructing mass. 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 Biopsied. Tattooed. - Non-bleeding internal hemorrhoids. Recommendation: - Resume previous diet. - Continue present medications. - Repeat colonoscopy for surveillance based on pathology results. - Return to primary care physician as previously scheduled. Abdon Barcenas, DO 09/29/2017 3:17:49 PM This report has been signed electronically. Note Initiated On: 09/29/2017 2:32 PM Number of Addenda: 0 I attest to the content of the Intraoperative Record and orders documented therein, exceptions below {[id number]}
--- NOTE | 2017-09-29 16:10 | Anesthesiology Progress Note ---
Anesthesia Post Op Note Date & Time Sep 29, 2017 at 16:10 Vital Signs Pain Intensity: 0.0 Vital Signs Past 12 Hours Date Time Temp Pulse Resp B/P (MAP) Pulse Ox O2 Delivery O2 Flow Rate FiO2 09/29/17 15:40 70 18 129/81 (97) 98 Room Air 09/29/17 15:25 75 18 122/61 (81) 99 Room Air 09/29/17 15:10 76 14 92/50 (64) 97 Room Air 09/29/17 14:17 36.6 77 20 147/67 (93) 99 Room Air 09/29/17 12:00 Room Air 09/29/17 11:30 36.6 73 18 137/82 (100) 99 Room Air 09/29/17 08:00 Room Air 09/29/17 07:43 36.6 79 18 147/80 (102) 100 Room Air Notes Mental Status: alert / awake / arousable, participated in evaluation Pt Amnestic to Procedure: Yes Nausea / Vomiting: adequately controlled Pain: adequately controlled Airway Patency, RR, SpO2: stable & adequate BP & HR: stable & adequate Hydration State: stable & adequate Anesthetic Complications: no major complications apparent
[2017-09-29 21:05] LABS: HEMATOCRIT 28.6 % (37-47); HEMOGLOBIN 9.4 g/dL (12.0-16.0)
[2017-09-30 03:38] VITALS: BP 120/66; PULSE 84; TEMP 37.1; O2SAT 96
[2017-09-30 06:25] LABS: BASO % 0.3 %; BASO ABS # 0.03 K/uL (0-0.2); EOS % 3.1 %; EOS ABS # 0.36 K/uL (0-0.5); HEMATOCRIT 31.2 % (37-47); HEMOGLOBIN 10.3 g/dL (12.0-16.0); IG# 0.04 K/uL (0.00-0.02); LYMPH % 14.3 %; LYMPH ABS # 1.66 K/uL (1.2-3.4); MEAN CELL VOLUME 84.8 fL (80-100); MEAN PLATELET VOLUME 8.9 fL (7.4-10.4); NEUT ABS # 8.82 K/uL (1.4-6.5); PLATELET COUNT 348 K/uL (130-400); RED CELL DISTRIBUTION WIDTH CV 15.7 % (11.5-14.5); RED CELL DISTRIBUTION WIDTH SD 48.4 fL (36.4-46.3); WHITE BLOOD COUNT 11.61 K/uL (4.8-10.8)
[2017-09-30 06:53] LABS: ALBUMIN 2.5 gm/dl (3.4-5.0); CALCIUM 8.7 mg/dl (8.5-10.1); CREATININE 0.8 mg/dl (0.60-1.20); POTASSIUM 4.5 mmol/L (3.5-5.1)
[2017-09-30 06:55] LABS: TOTAL PROTEIN 6.6 gm/dl (6.4-8.2)
[2017-09-30 08:09] VITALS: BP 112/62; PULSE 70; TEMP 36.8; O2SAT 96
--- NOTE | 2017-09-30 09:26 | DIAGNOSTIC IMAGING REPORT ---
ABD/PELVIS IV AND ORAL CONT CT DOSE: 301.10 mGy.cm HISTORY: Colon mass Sigmoid mass TECHNIQUE: Multiaxial CT images of the abdomen and pelvis were performed following the use of intravenous and oral contrast. A dose lowering technique was utilized adhering to the principles of ALARA. COMPARISON STUDY: None. FINDINGS: Lung bases are clear. The liver enhances uniformly. Pancreas is normal. Spleen is uniform. The adrenal glands show mild hyperplastic change. The kidneys enhance uniformly. No evidence for hydronephrosis. There is an inferior vena caval filter present. Mild osteophytic change of the abdominal aorta with no evidence for aneurysm or dissection. Annular lesion of the splenic flexure extending over a length of 9 to 12 cm. Partial involvement proximal descending colon. Trace amount of pericolonic infiltrative change. No significant localized or regional nodes. Moderate nonspecific wall thickening of the remainder of the descending colon. Small amount of free fluid within the pelvic cul-de-sac. Bladder is midline. There is a 1.4 cm right inguinal node. The bony structures show no true lytic or blastic process. IMPRESSION: 1. Annular mass of the splenic flexure extending over a length of 9 to 12 cm. Neoplasm is the diagnosis of exclusion. 2. Minimal pericolonic infiltrative change. 3. Nonspecific moderate wall thickening of the remainder of the descending colon. 4. Small amount of free fluid within the pelvic cul-de-sac. 5. 1.4 cm right inguinal node. 6. Mild degenerative change of the osseous structures with no true lytic or blastic process. The above report was generated using voice recognition software. It may contain grammatical, syntax or spelling errors. Electronically signed by: Jesus Porter M.D. 09/30/2017 9:25 AM Dictated Date/Time: 09/30/2017 9:16 AM
[2017-09-30] MEDS: PANTOprazole INJ 40 MG in SYRINGE 0 ML IV SCH (09:33)
--- NOTE | 2017-09-30 11:32 | Oncology Consultation ---
Oncology/Heme Consultation Date of Consultation: Sep 30, 2017. Attending Physician: Claudy Gaston MD Reason for Consultation: 82-year-old female was hospitalized on September 12 with extensive DVT and bilateral pulmonary emboli. An IVC filter was placed that she was sent home on Xarelto shortly after that she developed blood in her stool which prompted this admission. Colonoscopy done yesterday shows a nearly obstructive colon lesion that is commented to be in the sigmoid area biopsies are pending. History of Present Illness 82-year-old female was hospitalized on September 12 with extensive DVT and bilateral pulmonary emboli. An IVC filter was placed that she was sent home on Xarelto shortly after that she developed blood in her stool which prompted this admission. Colonoscopy done yesterday shows a nearly obstructive colon lesion that is commented to be in the sigmoid area biopsies are pending. She reviews with me that she has been fairly healthy throughout her life. She denies weight loss. She denies any change in bowel habits. She denies any nausea or vomiting. There is really no family history of cancers that she can recall she denies any pain. Xarelto has been stopped. She denies new shortness of breath or chest pain or any abdominal pain. Past Medical/Surgical History Probable colon carcinoma Recent extensive DVT and PE Family History FH: diabetes mellitus Social History Smoking Status: Never Smoker Alcohol Use: none Drug Use: none Marital Status: Occupation Status: retired Allergies Coded Allergies: No Known Allergies (Unverified , 09/29/17) Home Medications Scheduled Sriwghbpnap-Ozkkxxnaebk-Oudekd (Move Free Joint Health Ad), 1 TAB PO QAM Rivaroxaban (Xarelto), 15 MG PO BID Current Inpatient Medications Current Inpatient Medications Medications (Trade) Dose Ordered Sig/Ramila Route Start Time Stop Time Status Last Admin Dose Admin Acetaminophen (Tylenol Tab) 650 mg Q4H PRN PO 09/27/17 20:00 10/27/17 19:59 Al Hydrox/Mg Hydrox/Simethicone (Maalox Max Susp) 15 ml Q4H PRN PO 09/27/17 20:00 10/27/17 19:59 Magnesium Hydroxide (Milk Of Magnesia Susp) 30 ml Q12H PRN PO 09/27/17 20:00 10/27/17 19:59 Ondansetron HCl (Zofran Inj) 4 mg Q6H PRN IV 09/27/17 20:00 10/27/17 19:59 Nitroglycerin (Nitrostat Tab) 0.4 mg UD PRN SL 09/27/17 20:00 10/27/17 19:59 Polyethylene (Miralax Powder Packet) 17 gm DAILY PRN PO 09/27/17 20:00 10/27/17 19:59 Pantoprazole Sodium 40 mg/ Syringe 10 ml @ 5 mls/min Q12@0900,2100 IV 09/27/17 21:00 10/27/17 20:59 09/30/17 09:33 5 MLS/MIN Review of Systems Constitutional: Negative for weight loss, night sweats, or fever Eyes: Negative for event change of vision ENT: Negative for epistaxis, nasal discharge, sore throat, or deafness Cardiovascular: Negative for chest pain, palpitations, dizziness, diaphoresis Respiratory: Negative for new shortness of breath,hemoptysis, or purulent cough Gastrointestinal: Negative for diarrhea, hematemesis, nausea, vomiting, or dyspepsia Integumentary (skin): Negative for rash or jaundice discoloration Genitourinary: Negative for urinary frequency, hematuria, or dysuria Neurological: Negative for weakness, seizure activity, headache, or dizziness Lymphatic/Hematologic: Negative for petechiae, bleeding or new adenopathy Musculoskeletal: Negative for new joint or back pain Allergic/Immunologic: Negative for unusual rash or pruritis. Physical Exam Date Time Temp Pulse Resp B/P (MAP) Pulse Ox O2 Delivery O2 Flow Rate FiO2 09/30/17 08:09 36.8 70 18 112/62 (79) 96 09/30/17 08:00 Room Air 09/30/17 04:10 Room Air 09/30/17 03:38 37.1 84 17 120/66 (84) 96 Room Air 09/30/17 00:15 Room Air 09/29/17 23:30 36.5 68 18 101/61 (74) 98 Room Air 09/29/17 20:00 96 Room Air 09/29/17 19:34 36.6 59 16 114/70 (85) 98 Room Air 09/29/17 16:09 62 20 116/65 (82) 96 09/29/17 16:00 96 Room Air 09/29/17 15:40 70 18 129/81 (97) 98 Room Air 09/29/17 15:25 75 18 122/61 (81) 99 Room Air 09/29/17 15:10 76 14 92/50 (64) 97 Room Air 09/29/17 14:17 36.6 77 20 147/67 (93) 99 Room Air 09/29/17 12:00 Room Air 09/29/17 11:30 36.6 73 18 137/82 (100) 99 Room Air Constitutional: vitals are stable. Eyes: Eyes are MIC EOMI without conjuctival erythema or icterus. ENT: External examination was negative for masses. Neck: Negative for masses or palpable thyromegaly Respiratory: Lung sounds were generally clear bilaterally Cardiovascular: Heart was RRR without significant murmur, gallops aoe rubs Gastrointestinal: No palpable hepatic or splenomegaly. The abdomen was soft with normal bowel sounds. Lymphatic system: there was no palpable peripheral lymphadenopathy Musculoskeletal System: The musculoskeletal system seemed concordant with age. Skin: The skin was negative for jaundice. Neurologic exam: The exam was negative for any focal findings. Deep tendon reflexes were equal and symmetrical. Psychiatric exam: Was essentially negative with normal mood and effect. Breast exam: Not done she states this has been done recently by her other physicians extremities: negative for edema or tenderness Laboratory Results Last 24 Hours Test 09/29/17 12:35 09/29/17 20:43 09/30/17 06:14 09/30/17 08:34 Hemoglobin 9.4 g/dL 9.4 g/dL 10.3 g/dL Hematocrit 28.7 % 28.6 % 31.2 % White Blood Count 11.61 K/uL Red Blood Count 3.68 M/uL Mean Corpuscular Volume 84.8 fL Mean Corpuscular Hemoglobin 28.0 pg Mean Corpuscular Hemoglobin Concent 33.0 g/dl Platelet Count 348 K/uL Mean Platelet Volume 8.9 fL Neutrophils (%) (Auto) 76.0 % Lymphocytes (%) (Auto) 14.3 % Monocytes (%) (Auto) 6.0 % Eosinophils (%) (Auto) 3.1 % Basophils (%) (Auto) 0.3 % Neutrophils # (Auto) 8.82 K/uL Lymphocytes # (Auto) 1.66 K/uL Monocytes # (Auto) 0.70 K/uL Eosinophils # (Auto) 0.36 K/uL Basophils # (Auto) 0.03 K/uL RDW Standard Deviation 48.4 fL RDW Coefficient of Variation 15.7 % Immature Granulocyte % (Auto) 0.3 % Immature Granulocyte # (Auto) 0.04 K/uL Sodium Level 138 mmol/L Potassium Level 4.5 mmol/L Chloride Level 106 mmol/L Carbon Dioxide Level 28 mmol/L Anion Gap 5.0 mmol/L Blood Urea Nitrogen 4 mg/dl Creatinine 0.80 mg/dl Est Creatinine Clear Calc Drug Dose 48.5 ml/min Estimated GFR () 80.7 Estimated GFR (Non- 69.6 BUN/Creatinine Ratio 4.6 Random Glucose 89 mg/dl Calcium Level 8.7 mg/dl Total Bilirubin 0.4 mg/dl Aspartate Amino Transf (AST/SGOT) 17 U/L Alanine Aminotransferase (ALT/SGPT) 15 U/L Alkaline Phosphatase 72 U/L Total Protein 6.6 gm/dl Albumin 2.5 gm/dl Globulin 4.1 gm/dl Albumin/Globulin Ratio 0.6 Carcinoembryonic Antigen 1.2 ng/ml Assessment & Plan CT scan of the abdomen and pelvis really does not demonstrate any definite evidence of metastatic disease and a recent CTA of the chest shows findings that are felt to be possibly related to pulmonary infarction but no definite evidence of metastatic disease. She now needs a surgical consultation For resection of a nearly obstructive: Presumed colon cancer. We will arrange for follow-up in our clinic to review any role for potential adjuvant therapy and this was explained to her today. A follow-up appointment will be arranged for our clinic. Thank you for this consultation.
[2017-09-30 12:31] VITALS: BP 98/55; PULSE 76; TEMP 36.8; O2SAT 98
--- NOTE | 2017-09-30 13:12 | Surgery Consultation ---
Consultation Date of Consultation: Sep 30, 2017. Attending Physician: Claudy Gaston MD Reason for Consultation: Sigmoid mass History of Present Illness 82-year-old female on Xarelto for bilateral PEs, admitted for rectal bleeding, colonoscopy yesterday showed a circumferential bleeding mass in the proximal sigmoid/descending colon. Dr. cr called us yesterday for consultation. CT scan and CEA were performed this morning. Overall she is quite healthy with no prior medical history or surgical history. She was in her usual state of health until last week when she was diagnosed with bilateral PEs. An IVC filter was placed and she was placed on Xarelto. Few days ago she started noticing some bleeding from her rectum with bowel movements and was admitted to the hospital for further evaluation. No prior colonoscopies, no family history of colon cancer. Denies any obstructive symptoms. No history of melena or hematochezia in the past. Past Medical/Surgical History Past medical history: Unremarkable except for recent diagnosis of bilateral PEs Past surgical history: Denies Family history: Denies history of colon cancer or other significant malignancy Social history: Denies smoking or alcohol Family History FH: diabetes mellitus Social History Smoking Status: Never Smoker Alcohol Use: none Drug Use: none Marital Status: Occupation Status: retired Allergies Coded Allergies: No Known Allergies (Unverified , 09/29/17) Home Medications Scheduled Ofojrsueatd-Arajfmcpqwq-Ncxyyq (Move Free Joint Health Ad), 1 TAB PO QAM Rivaroxaban (Xarelto), 15 MG PO BID Current Inpatient Medications Current Inpatient Medications Medications (Trade) Dose Ordered Sig/Ramila Route Start Time Stop Time Status Last Admin Dose Admin Acetaminophen (Tylenol Tab) 650 mg Q4H PRN PO 09/27/17 20:00 10/27/17 19:59 Al Hydrox/Mg Hydrox/Simethicone (Maalox Max Susp) 15 ml Q4H PRN PO 09/27/17 20:00 10/27/17 19:59 Magnesium Hydroxide (Milk Of Magnesia Susp) 30 ml Q12H PRN PO 09/27/17 20:00 10/27/17 19:59 Ondansetron HCl (Zofran Inj) 4 mg Q6H PRN IV 09/27/17 20:00 10/27/17 19:59 Nitroglycerin (Nitrostat Tab) 0.4 mg UD PRN SL 09/27/17 20:00 10/27/17 19:59 Polyethylene (Miralax Powder Packet) 17 gm DAILY PRN PO 09/27/17 20:00 10/27/17 19:59 Pantoprazole Sodium 40 mg/ Syringe 10 ml @ 5 mls/min Q12@0900,2100 IV 09/27/17 21:00 10/27/17 20:59 09/30/17 09:33 5 MLS/MIN Review of Systems 10 point review of systems negative except as above Physical Exam Date Time Temp Pulse Resp B/P (MAP) Pulse Ox O2 Delivery O2 Flow Rate FiO2 09/30/17 12:00 Room Air 09/30/17 08:09 36.8 70 18 112/62 (79) 96 09/30/17 08:00 Room Air 09/30/17 04:10 Room Air 09/30/17 03:38 37.1 84 17 120/66 (84) 96 Room Air 09/30/17 00:15 Room Air 09/29/17 23:30 36.5 68 18 101/61 (74) 98 Room Air 09/29/17 20:00 96 Room Air 09/29/17 19:34 36.6 59 16 114/70 (85) 98 Room Air 09/29/17 16:09 62 20 116/65 (82) 96 09/29/17 16:00 96 Room Air 09/29/17 15:40 70 18 129/81 (97) 98 Room Air 09/29/17 15:25 75 18 122/61 (81) 99 Room Air 09/29/17 15:10 76 14 92/50 (64) 97 Room Air 09/29/17 14:17 36.6 77 20 147/67 (93) 99 Room Air General Appearance: WD/WN, no apparent distress Head: normocephalic, atraumatic Eyes: normal inspection, PERRL, EOMI ENT: normal ENT inspection, hearing grossly normal, TMs normal, pharynx normal Neck: supple, no adenopathy, thyroid normal, no JVD, no carotid bruits, trachea midline Respiratory/Chest: chest non-tender, lungs clear, normal breath sounds, no respiratory distress, no accessory muscle use Cardiovascular: regular rate, rhythm, no edema, no gallop, no JVD, no murmur, normal peripheral pulses Abdomen/GI: normal bowel sounds, non tender, soft, no organomegaly, no pulsatile mass Back: normal inspection, no CVA tenderness, no muscle spasm, normal range of motion Extremities/Musculoskelatal: normal inspection, no calf tenderness, normal capillary refill, no pedal edema, normal range of motion 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, no motor/sensory deficits, alert, normal mood/affect, normal reflexes, oriented x 3 Skin: normal color, warm/dry, no rash Lymphatic: no adenopathy Laboratory Results Last 24 Hours Test 09/29/17 12:35 09/29/17 20:43 09/30/17 06:14 09/30/17 08:34 Hemoglobin 9.4 g/dL 9.4 g/dL 10.3 g/dL Hematocrit 28.7 % 28.6 % 31.2 % White Blood Count 11.61 K/uL Red Blood Count 3.68 M/uL Mean Corpuscular Volume 84.8 fL Mean Corpuscular Hemoglobin 28.0 pg Mean Corpuscular Hemoglobin Concent 33.0 g/dl Platelet Count 348 K/uL Mean Platelet Volume 8.9 fL Neutrophils (%) (Auto) 76.0 % Lymphocytes (%) (Auto) 14.3 % Monocytes (%) (Auto) 6.0 % Eosinophils (%) (Auto) 3.1 % Basophils (%) (Auto) 0.3 % Neutrophils # (Auto) 8.82 K/uL Lymphocytes # (Auto) 1.66 K/uL Monocytes # (Auto) 0.70 K/uL Eosinophils # (Auto) 0.36 K/uL Basophils # (Auto) 0.03 K/uL RDW Standard Deviation 48.4 fL RDW Coefficient of Variation 15.7 % Immature Granulocyte % (Auto) 0.3 % Immature Granulocyte # (Auto) 0.04 K/uL Sodium Level 138 mmol/L Potassium Level 4.5 mmol/L Chloride Level 106 mmol/L Carbon Dioxide Level 28 mmol/L Anion Gap 5.0 mmol/L Blood Urea Nitrogen 4 mg/dl Creatinine 0.80 mg/dl Est Creatinine Clear Calc Drug Dose 48.5 ml/min Estimated GFR () 80.7 Estimated GFR (Non- 69.6 BUN/Creatinine Ratio 4.6 Random Glucose 89 mg/dl Calcium Level 8.7 mg/dl Total Bilirubin 0.4 mg/dl Aspartate Amino Transf (AST/SGOT) 17 U/L Alanine Aminotransferase (ALT/SGPT) 15 U/L Alkaline Phosphatase 72 U/L Total Protein 6.6 gm/dl Albumin 2.5 gm/dl Globulin 4.1 gm/dl Albumin/Globulin Ratio 0.6 Carcinoembryonic Antigen 1.2 ng/ml [~ rep ct add3]] ABD/PELVIS IV AND ORAL CONT CT DOSE: 301.10 mGy.cm HISTORY: Colon mass Sigmoid mass TECHNIQUE: Multiaxial CT images of the abdomen and pelvis were performed following the use of intravenous and oral contrast. A dose lowering technique was utilized adhering to the principles of ALARA. COMPARISON STUDY: None. FINDINGS: Lung bases are clear. The liver enhances uniformly. Pancreas is normal. Spleen is uniform. The adrenal glands show mild hyperplastic change. The kidneys enhance uniformly. No evidence for hydronephrosis. There is an inferior vena caval filter present. Mild osteophytic change of the abdominal aorta with no evidence for aneurysm or dissection. Annular lesion of the splenic flexure extending over a length of 9 to 12 cm. Partial involvement proximal descending colon. Trace amount of pericolonic infiltrative change. No significant localized or regional nodes. Moderate nonspecific wall thickening of the remainder of the descending colon. Small amount of free fluid within the pelvic cul-de-sac. Bladder is midline. There is a 1.4 cm right inguinal node. The bony structures show no true lytic or blastic process. IMPRESSION: 1. Annular mass of the splenic flexure extending over a length of 9 to 12 cm. Neoplasm is the diagnosis of exclusion. 2. Minimal pericolonic infiltrative change. 3. Nonspecific moderate wall thickening of the remainder of the descending colon. 4. Small amount of free fluid within the pelvic cul-de-sac. 5. 1.4 cm right inguinal node. 6. Mild degenerative change of the osseous structures with no true lytic or blastic process. (CHEST FOR PE) ANGIO WITH CLINICAL HISTORY: 82 years-old Female presenting with ^sob, elevated dimer. TECHNIQUE: Multidetector CT angiography of the chest was performed after administration of intravenous contrast. 3-D volumetric and/or maximum intensity projection (MIP) images were subsequently reconstructed for review. IV contrast: 81 mL of Optiray 320. A dose lowering technique was used consistent with the principles of ALARA (as low as reasonably achievable). COMPARISON: None. CT DOSE (mGy.cm): The estimated cumulative dose is 214.67 mGy.cm. FINDINGS: Outdoor Recreation Specialist topogram: Unremarkable. Pulmonary vasculature: The study is adequate for assessment of the pulmonary vascular tree. Extensive bilateral lobar and segmental pulmonary emboli affecting every lobe. Prominent thrombus in the right interlobar artery. No thrombus in the main pulmonary artery. Main pulmonary artery is not enlarged. However, flattening of the interventricular septum. No intracardiac filling defect. No reflux of contrast into the hepatic veins. Remaining chest: On soft tissue windows, normal thyroid and thoracic inlet. No axillary, supraclavicular, hilar, or mediastinal lymphadenopathy. Atherosclerosis of the aorta. Normal heart size. Trace pericardial effusion. No pleural effusion. Calcifications in the spleen likely indicate prior granulomatous infection. Hypodensity at the right hepatic dome indeterminate but likely hepatic cyst or hamartoma. On lung windows, consolidation in the superior segment of the right lower lobe, which is peripheral. Additional dependent reticular and groundglass opacities in the lower lobes likely atelectasis. Calcified granuloma noted in the right lower lobe. Biapical scarring. Focal groundglass opacity peripherally in the superior segment of the lingula (series 4 image 132). Calcified granuloma also noted in the left lower lobe. Central airways patent. On bone windows, degenerative changes of the spine. IMPRESSION: 1. Extensive bilateral pulmonary embolus burden involving every lobe are artery and extensively in the segmental arteries. Flattening of the interventricular septum raises concern for right heart strain. 2. Focal consolidation in the superior segment of the right lower lobe raises concern for developing infarct. Minimal groundglass peripheral opacity in the lingula may also represent developing infarct. Assessment & Plan 82-year-old female with newly diagnosed mass of her descending colon near splenic flexure on CT, likely malignant but pathology is pending. At this point she should have a resection whether it is malignant or not, but overall she is stable and there is no indication for emergent surgery. We will plan for a laparoscopic left hemicolectomy, possible open early this week. The risks of the procedure were discussed to include but are not limited to bleeding , infection, recurrence, need for future more extensive surgery, leak, need for ostomy, damage to surrounding structures, and the risks of anesthesia. Plan for laparoscopic left hemicolectomy, possible open on Monday, 04 oct 2017 Her hematocrit is stable, okay to discharge from general surgery standpoint If discharge she should follow-up with us in the clinic on Monday or Monday. I would recommend her staying on clear or full liquids until surgery she is already undergone a bowel prep Call with questions or concerns.
[2017-09-30] MEDS ORDERED: PRLSR20 PO ×2 (14:40)
--- NOTE | 2017-09-30 14:59 | Discharge Instructions ---
Discharge Instructions Date of Service Sep 30, 2017. Admission Reason for Admission: Acute Blood Loss Anemia Discharge Discharge Diagnosis / Problem: Acute blood loss anemia, Mass in colon Discharge Goals Goal(s): Decrease discomfort, Improve function, Learn about illness, Diagnostic testing, Therapeutic intervention Activity Recommendations Activity Limitations: per Instructions/Follow-up section . Instructions / Follow-Up Instructions / Follow-Up You were admitted due to acute blood loss anemia. Your xarelto (blood thinner medication) has been stopped -- please discontinue this medication for now. It was originally prescribed to you due to your blood clots, however, you have been found to have a mass in your colon that was bleeding. This is likely the source of your bleeding from your rectum and anemia, and if it is cancerous , then may also explain why you got blood clots in the first place. As discussed, cancers can cause blood clots. The most important thing is to get treatment for your cancer. That is why you are scheduled for outpatient follow up with surgery and with oncology. Please continue taking Prilosec 40mg daily until your follow up appointments with gastroenterology, to protect your stomach from ulceration. As far as your activity, please be sensible and do only as much as you are able. It is important to get up and move your legs every hour so as not to develop more clots, but please also hold off on more strenuous activities and intense exercise until after your follow up appointments. Until your appointment, please continue a full liquid diet: What you can eat and Drink You can eat or drink only things that are liquid. You may have these foods and drinks: Water Fruit juices, including nectars and juices with pulp Butter, margarine, oil, cream, custard, and pudding Plain ice cream, frozen yogurt, and sherbet, fruit ices and popsicles -- DO NOT eat ice cream or other frozen desserts that have any solids in them or on top, such as nuts, chocolate chips, and cookie pieces. Sugar, honey, and syrups Soup broth (bouillon, consomm, and strained cream soups, but NO solids) Sodas, such as danyel pati and Sprite Gelatin (Jell-O) Boost, Ensure, Resource, and other liquid supplements Tea or coffee with cream or milk and sugar or honey Foods you may NOT eat Any kind of cheese Fruit (fresh, frozen, or canned) Meat Cereals. Raw or cooked vegetables. And, Mashed foods, such as mashed potato or avocado. Be well A Ken Current Hospital Diet Patient's current hospital diet: Full Liquid Diet Discharge Diet Recommended Diet: Full Liquid Diet Procedures Procedures Performed: colonoscopy with biopsy and injection Pending Studies Studies pending at discharge: yes List of pending studies: biopsy results of colon mass Medical Emergencies . Who to Call and When: Medical Emergencies: If at any time you feel your situation is an emergency, please call 911 immediately. . Non-Emergent Contact Non-Emergency issues call your: Primary Care Provider . . "Provider Documentation" section prepared by Mamta Rogers. . Resident Tracking Resident Involvement: Resident Care Provided Care Provided: Adult Hospital Medicine
--- NOTE | 2017-09-30 15:04 | Discharge Summary ---
Discharge Summary Date of Service Sep 30, 2017. Discharge Summary Admission Date: Sep 27, 2017 at 18:36 Discharge Date: Sep 30, 2017 Discharge Disposition: Home Principal Diagnosis: Acute blood loss anemia, Mass found on colonoscopy suspicious for neoplasm Procedures: ABD/PELVIS IV AND ORAL CONT CT DOSE: 301.10 mGy.cm HISTORY: Colon mass Sigmoid mass TECHNIQUE: Multiaxial CT images of the abdomen and pelvis were performed following the use of intravenous and oral contrast. A dose lowering technique was utilized adhering to the principles of ALARA. COMPARISON STUDY: None. FINDINGS: Lung bases are clear. The liver enhances uniformly. Pancreas is normal. Spleen is uniform. The adrenal glands show mild hyperplastic change. The kidneys enhance uniformly. No evidence for hydronephrosis. There is an inferior vena caval filter present. Mild osteophytic change of the abdominal aorta with no evidence for aneurysm or dissection. Annular lesion of the splenic flexure extending over a length of 9 to 12 cm. Partial involvement proximal descending colon. Trace amount of pericolonic infiltrative change. No significant localized or regional nodes. Moderate nonspecific wall thickening of the remainder of the descending colon. Small amount of free fluid within the pelvic cul-de-sac. Bladder is midline. There is a 1.4 cm right inguinal node. The bony structures show no true lytic or blastic process. IMPRESSION: 1. Annular mass of the splenic flexure extending over a length of 9 to 12 cm. Neoplasm is the diagnosis of exclusion. 2. Minimal pericolonic infiltrative change. 3. Nonspecific moderate wall thickening of the remainder of the descending colon. 4. Small amount of free fluid within the pelvic cul-de-sac. 5. 1.4 cm right inguinal node. 6. Mild degenerative change of the osseous structures with no true lytic or blastic process. Consultations: Gastroenterology Heme/oncology General Surgery Medication Reconciliation New Medications: Omeprazole (Prilosec) 20 Mg Capcr 40 MG PO DAILY for 30 Days, #60 CAP Continued Medications: Imseappacyl-Lwjkmbissgd-Uxplty (Move Free Joint Health Ad) 1 Tab Tab 1 TAB PO QAM Discontinued Medications: Rivaroxaban (Xarelto) 15 Mg Tab 15 MG PO BID for 20 Days, #40 TAB Discharge Exam Pt denies lightheadedness, further blood per rectum, chest pain, difficulty breathing, headache, blurred vision or lower extremity pain or swelling. Vitals stable on day of discharge. ROS See HPI for pertinent positives and negatives. PE GENERAL: Awake, alert, well-appearing, in no distress HENT: Normocephalic, atraumatic. EYES: Normal conjunctiva. Sclera non-icteric. NECK: Supple. FROM. No JVD. RESPIRATORY: Clear to auscultation. CARDIAC: Regular rate, normal rhythm. Extremities warm and well perfused. Pulses equal. ABDOMEN: Soft, non-distended. No tenderness to palpation. No rebound or guarding. No masses. LOWER EXTREMITIES: Calves are equal size bilaterally and non-tender. No edema. No discoloration. NEURO: No motor deficits noted. SKIN: No rash or jaundice noted. Hospital Course Ms. Mathias is a pleasant 82 year old female who was referred to inpatient treatment after acute blood loss anemia found on outpatient labs, shortly after starting Xarelto for what was thought to have been unprovoked bilateral pulmonary emboli diagnosed a little over 2 weeks prior. During that admission, IVC filter was placed and pt sent home on anticoagulant. During work up for GI bleed here, pt required 2 units of PRBC's. Colonoscopy was performed and an infiltrative partially obstructing mass was found in the sigmoid colon 35 cm from anal verge. Oozing was present. Biopsy was taken, and area was tattooed. CT of the abdomen showed annular mass of the splenic flexure extending over a length of 9 to 12 cm with minimal pericolonic infiltrative change and 1.4 cm right inguinal node. Surgery and Oncology were also consulted. Plan made for laparoscopic left hemicolectomy possible for Monday. Oncology to follow pending biopsy results for what is very suspicious for colon cancer. This is patient's first colonoscopy ever. Pt's hemoglobin and clinical condition greatly improved with fluids and transfusion. On day of discharge her condition and plan moving forward was discussed with her as well as her daughter, son-in-law and 2 grandsons present. All questions were answered, and pt was medically stable for discharge with plan for outpatient follow up with surgery on Monday. Pt is to remain on full liquid diet until her surgery later next week. Total Time Spent: Greater than 30 minutes This includes examination of the patient, discharge planning, medication reconciliation, and communication with other providers. Discharge Instructions Please refer to the electronic Patient Visit Report (Discharge Instructions) for additional information. Follow-Up Dr. Umair Jiménez - heme/oncology Dr. Zev To - gen surg Additional Copies To Tegan Persaud M.D.; Sekou Dc MD Resident Tracking Resident Involvement: Resident Care Provided Care Provided: Adult [facility] Medicine Assessment/Plan Resident Physician Supervision Note: I was present with Dr. Rogers during the history and exam. I discussed the case with the resident and agree with the findings and plan as documented in the note. Any exceptions or clarifications are listed here: Pt resting comfortably in bed without abdominal complaint or melanotic/bloody stools. Circumferential, non-obstructing mass on colonoscopy concerning for neoplastic disease with LN on CT abdomen, pathology pending. Surgical evaluation inpatient recommends, outpatient follow up for surgery on 10.04.17. Oncology is aware and will follow and await path results. Patient discharged on full liquid diet until procedure complete. Will be off AC , but has IVC filter in place to prevent further PE. Family discussion per Dr. Rogers.
[2017-09-30 15:09] VITALS: BP 98/55; PULSE 76; TEMP 36.8; O2SAT 98
[2017-10-03] MEDS ORDERED: PRLSR20 PO (08:47)
== END 2017-09-30 16:13 | disposition home or self-care (01) | DRG 375 ==
LOC: C.2T 18:36
PROVIDERS: ADMIT Internal Medicine; ATTEND Family Medicine
PROC: 0DBN8ZX Excision of Sigmoid Colon, Via Natural or Artificial Opening Endoscopic, Diagnostic (ICD-10-PCS; principal; 2017-09-29 14:45)
DX: C18.9 Malignant neoplasm of colon, unspecified (principal); K92.2 Gastrointestinal hemorrhage, unspecified; D62 Acute posthemorrhagic anemia; M19.90 Unspecified osteoarthritis, unspecified site; T45.515A Adverse effect of anticoagulants, initial encounter; Z86.718 Personal history of other venous thrombosis and embolism; Z86.711 Personal history of pulmonary embolism; Z83.3 Family history of diabetes mellitus; Z82.49 Family history of ischemic heart disease and other diseases of the circulatory system; Z79.01 Long term (current) use of anticoagulants

== ENCOUNTER 2017-10-04 08:28 | Inpatient (IN) | payer BC, OTHER ==
[2017-10-03 08:47] VITALS: BMI 24.0
[2017-10-04] VITALS (13 sets, daily range): BP systolic 92–133; BP diastolic 48–77; PULSE 48–90; TEMP 36.3–36.8; O2SAT 100; BMI 24.0
[~2017-10-04] VITALS: Ht 162.6 cm; Wt 69.3 kg
[~2017-10-04 08:28] MED LIST changes: +LACTATED RINGER'S 1000ML 1,000 ML IV SCH; +PRLSR20 PO; -XRL15 PO
[2017-10-04] MEDS ORDERED: LABETALOL HCL IV 5 MG/ML 20ML IV PRN (09:30)
[2017-10-04] MEDS ORDERED: MEPERIDINE HCL 25 MG/ML CARP IV PRN (09:30)
[2017-10-04] MEDS ORDERED: HYDROmorphone INJ 0.5 MG/0.5 ML SYR IV PRN (09:30)
[2017-10-04] MEDS ORDERED: FENTANYL CITRATE INJ 50 MCG/1 ML 2 ML VIAL IV PRN (09:30)
[2017-10-04] MEDS ORDERED: ONDANSETRON INJ 2 MG/ML 2 ML VIAL IV PRN ×2 (09:30→15:45)
[2017-10-04] MEDS ORDERED: EpHEDrine SULFATE INJ 50 MG/ML AMP IV PRN (09:30)
[2017-10-04] MEDS ORDERED: ATROPINE SULFATE 0.1 MG/ML 5ML SYR IV PRN (09:30)
--- NOTE | 2017-10-04 09:52 | History & Physical Bridge Note ---
H&P Re-Evaluation Bridge Note: I have examined the patient, reviewed the History & Physical and in the interval since the performance of the History & Physical I have noted the following changes of clinical significance: No changes noted
[2017-10-04] MEDS ORDERED: CEFOXITIN IV 2,000 MG in DEXTROSE 5% 50ML 50 ML IV ONE (10:00)
[2017-10-04] MEDS ORDERED: FENTANYL CITRATE INJ 50 MCG/1 ML 2 ML VIAL ONE (10:48)
[2017-10-04] MEDS ORDERED: DEXAMETHASONE SOD INJ 4 MG/ML VIAL ONE (11:14)
[2017-10-04] MEDS ORDERED: PHENYLEPHRINE 100MCG/ML 5ML SYR ONE (11:14)
[2017-10-04] MEDS ORDERED: LARYING-O-JET KIT (LTA) ONE (11:14)
[2017-10-04] MEDS ORDERED: ONDANSETRON INJ 2 MG/ML 2 ML VIAL ONE (11:14)
[2017-10-04] MEDS ORDERED: LIDOCAINE HCL 2% 2 ML VIAL (20MG/ML) ONE (11:14)
[2017-10-04] MEDS ORDERED: ROCURONIUM BROMIDE 10 MG/ML 5 ML VIAL ONE ×2 (11:14→13:35)
[2017-10-04] MEDS ORDERED: EpHEDrine SULFATE 50MG/5ML SYR ONE (11:14)
[2017-10-04] MEDS ORDERED: NEOSTIGMINE METHYLSULFATE 5 MG/5 ML SYR ONE (11:14)
[2017-10-04] MEDS ORDERED: PROPOFOL IV EMULSION 10 MG/ML 20 ML VIAL ONE (11:14)
[2017-10-04] MEDS ORDERED: GLYCOPYRROLATE INJ 0.2 MG/ML VIAL ONE (11:14)
[2017-10-04] MEDS ORDERED: BUPIVACAINE 0.5 % 5 MG/1 ML MPF 30ML VIAL ONE (11:37)
[2017-10-04] MEDS ORDERED: HYDROmorphone INJ 2 MG/ML SYR/VIAL ONE (13:09)
[2017-10-04] MEDS ORDERED: BUPIVACAINE LIPOSOME 1/3% 266 MG/20 ML VIAL ONE (15:04)
--- NOTE | 2017-10-04 15:38 | [facility] Post Operative Brief Note ---
Immediate Operative Summary Operative Date October 04, 2017. Pre-Operative Diagnosis colonic mass Post-Operative Diagnosis colonic mass invading stomach Procedure(s) Performed Diagnostic laparoscopy, partical colectomy, en bloc partial gastric resection, colo-colonic anastomosis Surgeon Dr. 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
[2017-10-04] MEDS ORDERED: MoRPHine SULFATE 4 MG/ML 1 ML CARP\\VIAL IV PRN (15:45)
[2017-10-04 16:13] LABS: HEMATOCRIT 32.1 % (37-47); HEMOGLOBIN 10.7 g/dL (12.0-16.0)
--- NOTE | 2017-10-04 16:23 | [facility] Operative Report ---
Operative Report Operative Date October 04, 2017. 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 To Design Agent Surgeon(s) Maurisio Baptiste PA-C Estimated Blood Loss 200ml Findings Diagnostic laparoscopy revealed large tumor at the splenic flexure as expected, however it was invading the stomach and densely adhesed to the lateral abdominal wall. At this point we decided to open. A segmental colon resection was performed with an en bloc gastric wedge resection, primary colocolonic anastomosis performed. We took the left colic artery as well as the left branch of the middle colic artery with a high ligation. The tumor was adhesed to the lateral abdominal wall but did not involve the kidney or spleen. It was closely approximating the inferior border of the pancreas but did not appear to be invading it and we had a small plane between the tumor and the pancreas. KARI drain placed in the lesser sac. Specimens Permanent Solution: A.) Splenic Flexure mass with partial gastrectomy; suture angulo proximal colon Drains 10 mm KARI in the lesser sac Anesthesia GETA Complication(s) None Disposition Recovery Room / PACU Indications 82-year-old female that was initially diagnosed bilateral PEs and started having a GI bleed on anticoagulation, colonoscopy showed large tumor at the splenic flexure. CT scan was performed and showed a large tumor at the splenic flexure with some pericolonic inflammation, but no evidence of invasion of surrounding structures. Plan for laparoscopic left hemicolectomy, possible open. The risks of the procedure were discussed, all questions were answered, and the patient agreed to proceed with surgery as planned. Description of Procedure The patient was properly identified, consented, and taken to the operating room where she was placed in the supine position. General endotracheal anesthesia was induced. SCDs and a safety belt were placed. Preoperative antibiotics were administered. A Stanley catheter was placed. The patient's abdomen was prepped and draped in the standard sterile fashion. Surgical timeout was performed and all parties were in agreement that this was the correct patient and procedure to be performed and we continued as planned. A vertical midline supraumbilical incision was made with electrocautery and deepened down to the fascia with blunt dissection. The base of the umbilicus was grasped with a Arabella. The Arabella was elevated towards the ceiling and the fascia was incised with a knife. Stay sutures were placed on either side of the midline. Entry into the peritoneum was confirmed. The Zack trocar was then placed and the abdomen was insufflated with carbon dioxide which the patient tolerated without incident. The laparoscope was inserted and the abdomen inspected. No damage from initial trocar placement was noted. No significant adhesions or other abnormalities were noted. Tattoo appeared to be visible in the descending colon. Next, 5 mm ports were then placed in the left upper quadrant and left lower quadrant. The tumor was easily visible in the left upper quadrant. As we attempted to mobilize the tumor, it was obvious that this was densely adhesed to the lateral abdominal wall and appeared to be invading the greater curvature the stomach. At this point we decided to convert to open. A midline incision was made from the xiphoid down to just below the umbilicus. The white line of Toldt was taken down around the area of the mid sigmoid colon extending superiorly to the splenic flexure. Greater omentum was taken down off of the transverse colon from the middle portion of the transverse colon to the splenic flexure. Using a combination of harmonic and blunt dissection we gently dissected the colon mass away from lateral abdominal wall. A portion of the peritoneum was taken with the tumor. We then examined the lesser sac and it was clear that the tumor was invading a portion of the greater curvature the stomach. The short gastrics were divided using the harmonic. The omentum was taken off a portion of the greater curvature of the stomach for a few centimeters proximal and distal to the area of invasion. We then used a purple loaded endoscopic TOMMIE stapler to perform a wedge resection of that area of stomach that was being invaded. The staple line appeared intact and hemostasis was good. This was later oversewn with interrupted 3-0 silk interrupted Lembert sutures. We then identified adequate areas of resection several centimeters from the tumor of both the transverse colon and the descending colon. A blue loaded TOMMIE stapler was then used to divide the colon at these locations. The harmonic was then used to divide the mesentery to perform a high ligation. We took what appeared to be the left colic artery as it branched off the RACHELE as well as the left branch of the middle colic artery, and the larger vessels were controlled with 3-0 silk ligatures. We then divided the mesentery along the inferior border of the pancreas using the harmonic device. Though this was closely approximating the pancreas, it appeared that there was a an adequate tissue plane between the tumor of the pancreas. The tumor was not invading the spleen or the left kidney, and it was not invading the duodenum. During this process the splenocolic ligament was taken down with the harmonic. The tumor and colon were peeled off of their attachments to the retroperitoneum. The tumor was then removed and passed off the table specimen. A single suture marked the proximal colon. We then turned our attention to the colonic anastomosis. The colon staple lines appeared well perfused and were cleared of any investing fat. A side-to- side functional end-to-end colocolonic anastomosis was then performed. The abdomen was draped with blue towels to prevent spillage and contamination. Colotomies were created in the antimesenteric corner of the colon staple lines. A blue loaded 80 mm TOMMIE stapler was then used to create a colocolonic anastomosis with 2 sequential firings. The prior staple lines were then completely excised using the blue TOMMIE stapler. Staple line of the anastomosis was then reinforced with 3-0 silk interrupted Lembert sutures. The mesenteric defect was closed with a running 3-0 Vicryl suture. The abdomen was irrigated and hemostasis appeared good. A 10 mm KARI drain was placed in the lesser sac along the inferior border the pancreas of the gastric staple line, it exited the left upper quadrant. It was secured to place with a 3-0 nylon suture. There is a small 5 mm capsular tear of the spleen but did not appear to be bleeding. Exparel mixed 50-50 with high percent Marcaine was injected along the fascia and skin incisions. The fascia was closed with a #1 looped PDS x2. The wound was irrigated and the incision was then closed with debbie. The remaining port sites were closed with debbie. Sterile dressings were placed. The patient was extubated in the operating room and taken to the PACU where she recovered without apparent incident. All sponge, instrument, and needle counts were correct. The patient tolerated the procedure well. The colon specimen was sent to Pathology. The physician's media assistant was present and scrubbed for the entirety of the case. He was critical in positioning the patient, prepping and draping, retraction and exposure, dissection, removal of the mass, performing the anastomosis, closure the incisions, placement of dressings. I attest to the content of the Intraoperative Record and any orders documented therein. Any exceptions are noted below.
--- NOTE | 2017-10-04 16:27 | Anesthesiology Progress Note ---
Anesthesia Post Op Note Date & Time October 04, 2017 at 16:27 Vital Signs Pain Intensity: 0 Vital Signs Past 12 Hours Date Time Temp Pulse Resp B/P (MAP) Pulse Ox O2 Delivery O2 Flow Rate FiO2 10/04/17 16:11 50 16 106/54 100 10/04/17 16:11 51 16 10/04/17 16:08 106/54 10/04/17 16:06 51 12 10/04/17 16:06 51 12 100 10/04/17 16:05 51 15 100 10/04/17 16:05 52 15 10/04/17 16:01 102/55 10/04/17 16:00 53 13 100 10/04/17 16:00 53 13 10/04/17 15:56 102/57 10/04/17 15:55 54 12 10/04/17 15:55 54 12 100 10/04/17 15:51 110/56 10/04/17 15:50 57 12 100 10/04/17 15:50 58 12 10/04/17 15:46 113/63 10/04/17 15:45 62 12 100 10/04/17 15:45 36.3 58 13 113/63 100 Oxymask 10 10/04/17 15:45 63 12 10/04/17 09:03 36.7 90 20 133/77 100 Room Air Notes Mental Status: alert / awake / arousable, participated in evaluation Pt Amnestic to Procedure: Yes Nausea / Vomiting: adequately controlled Pain: adequately controlled Airway Patency, RR, SpO2: stable & adequate BP & HR: stable & adequate Hydration State: stable & adequate Anesthetic Complications: no major complications apparent
--- NOTE | 2017-10-04 16:36 | Critical Care Consultation ---
Critical Care Consultation Date of Consultation: October 04, 2017. Attending Physician: Zev To DO Reason for Consultation: History extensive PE with DVT diagnosed September 14, 2017 s postoperative day 0 from colon resection secondary to mass Past Medical/Surgical History Patient is an 82 year old female who was recently diagnosed with new onset DVTs with pulmonary embolism on September 14, 2017. At that time she underwent IVC filter placement. On September 27 she was again admitted to the hospital this time with acute GI bleeding secondary to anticoagulation use and was found to have a colonic mass on CT scan. Pathology obtained from September 29, 2017 is still pending. She has been seen by Dr. Jiménez of hematology oncology on September 30, 2017. Today she underwent a diagnostic laparoscopy, partial colectomy, and blocked gastric resection, and a colocolonic anastomosis by Dr. To. Blood loss was approximately 200 mL's and she produced 400 mL's of urine. Reviewed the anesthesia record, she had a grade 3 airway obtained with a MAC 3 blade. She is being sent to the ICU for hemodynamic monitoring and anticoagulation to initiate 12 hours postoperatively. I discussed the case with Dr. To, there was more extensive resection due to local invasion of the mass which necessitates close observation for bleeding, the patient will require systemic anticoagulation at some point in the near future. Family History FH: diabetes mellitus Social History Smoking Status: Never Smoker Drug Use: none Marital Status: Occupation Status: retired Allergies Coded Allergies: No Known Allergies (Unverified , 10/04/17) Home Medications Scheduled Ekxxryqjslp-Rmjadudfbhf-Mlvkis ([employer] Ad), 1 TAB PO QAM Omeprazole (Prilosec), 40 MG PO QAM Current Inpatient Medications Current Inpatient Medications Medications (Trade) Dose Ordered Sig/Ramila Route Start Time Stop Time Status Last Admin Dose Admin Lactated Ringer's 1,000 ml @ 15 mls/hr Q24H IV 10/04/17 06:00 10/05/17 05:59 10/04/17 09:19 15 MLS/HR Lactated Ringer's 1,000 ml @ 100 mls/hr Q10H IV 10/04/17 15:45 11/03/17 15:44 UNV Acetaminophen 100 ml @ 400 mls/hr Q8H PRN IV 10/04/17 15:45 11/03/17 15:44 UNV Morphine Sulfate (MoRPHine SULFATE INJ) 2 mg Q1H PRN IV 10/04/17 15:45 10/18/17 15:44 UNV Ondansetron HCl (Zofran Inj) 4 mg Q6H PRN IV 10/04/17 15:45 11/03/17 15:44 UNV Pantoprazole Sodium 40 mg/ Syringe 10 ml @ 5 mls/min DAILY IV 10/05/17 09:00 11/04/17 08:59 UNV Cefoxitin Sodium 2000 mg/Dextrose 60 ml @ 100 mls/hr Q6H IV 10/04/17 16:00 10/05/17 04:35 UNV Review of Systems Patient currently pain-free, no chest pain, no shortness of breath. Constitutional: No fever, No chills ENT: No unusual epistaxis, No nasal symptoms Respiratory: No cough, No sputum, No wheezing Cardiovascular: No chest pain, No orthopnea Abdomen: No pain, No nausea Musculoskeletal: No swelling Neurologic: No weakness Endocrine: No fatigue Hematologic / Lymphatic: + clotting problems, No abnormal bleeding/bruising Integumentary: No rash Physical Exam Date Time Temp Pulse Resp B/P (MAP) Pulse Ox O2 Delivery O2 Flow Rate FiO2 10/04/17 16:11 50 16 106/54 100 10/04/17 16:11 51 16 10/04/17 16:08 106/54 10/04/17 16:06 51 12 10/04/17 16:06 51 12 100 10/04/17 16:05 51 15 100 10/04/17 16:05 52 15 10/04/17 16:01 102/55 10/04/17 16:00 53 13 100 10/04/17 16:00 53 13 10/04/17 15:56 102/57 10/04/17 15:55 54 12 10/04/17 15:55 54 12 100 10/04/17 15:51 110/56 10/04/17 15:50 57 12 100 10/04/17 15:50 58 12 10/04/17 15:46 113/63 10/04/17 15:45 62 12 100 10/04/17 15:45 36.3 58 13 113/63 100 Oxymask 10 10/04/17 15:45 63 12 10/04/17 09:03 36.7 90 20 133/77 100 Room Air General: Alert. nontoxic. Skin: Warm, dry, Head: Atraumatic Ears, nose, mouth and throat: airway patent Cardiovascular: Normal peripheral perfusion Respiratory: no respiratory distress Gastrointestinal: Non distended, dressing in place incision clean dry and intact no shadowing Musculoskeletal: No deformity Laboratory Results Last 24 Hours Test 10/04/17 16:03 Hemoglobin 10.7 g/dL Hematocrit 32.1 % Diagnostic Results I reviewed the echo report of September 12, 2017, most significantly there is Doppler suggestion of a right to left atrial shunt Assessment & Plan Reason Critically Ill: 82-year-old female with colonic mass with recently diagnosed PEs requiring therapeutic anticoagulation and subsequent gastrointestinal blood loss secondary to colonic mass who underwent resection today. PLAN: Neuro: Pain control Resp: History bilateral PEs -Status post filter placement CV: Right to left atrial shunt -Would benefit from systemic anticoagulation as soon as reasonably possible Fluids/Renal: Lactated Ringer's at 100 ML's per hour ID: Perioperative antibiotics GI/Nutrition: N.p.o. except meds Heme: We will start heparin 12 hours postoperatively, this would be approximately 4: 30 AM -History of IVC filter placement Endocrine: ICU hyperglycemia protocol Vascular access: Peripheral IVs I have personally spent 35 minutes of critical care time in the direct management of this patient. This is a life/limb threatening event. This includes time spent evaluating patient, direct bedside care, chart review, placing orders, interpretation of diagnostic studies, discussion with consultants, patient, and/or family members regarding treatment decisions, as well as other required patient management activities. This time is exclusive of all separately billable procedures, and teaching time and separate from and in addition to any other critical care service time.
[2017-10-04] MEDS ORDERED: ICU PROTOCOL FOR HYPERGLYCEMIA PRN (16:45)
[2017-10-04] MEDS: LACTATED RINGER'S 1000ML 1,000 ML IV SCH (17:19)
[2017-10-04] MEDS: CEFOXITIN IV 2,000 MG in DEXTROSE 5% 50ML 50 ML IV SCH (17:49)
[2017-10-04] MEDS ORDERED: LACTATED RINGER'S 1000ML 1,000 ML IV SCH (19:45)
[2017-10-04 22:00] LABS: HEMATOCRIT 33.3 % (37-47); HEMOGLOBIN 10.8 g/dL (12.0-16.0)
[2017-10-04 22:21] LABS: CALCIUM 8.2 mg/dl (8.5-10.1); CREATININE 0.86 mg/dl (0.60-1.20); POTASSIUM 4.1 mmol/L (3.5-5.1)
[2017-10-05] VITALS (26 sets, daily range): BP systolic 88–127; BP diastolic 43–73; PULSE 58–94; TEMP 36.4–37; O2SAT 81–100; Ht 162.6 cm; Wt 69.3 kg
[2017-10-05] MEDS: CEFOXITIN IV 2,000 MG in DEXTROSE 5% 50ML 50 ML IV SCH ×2 (00:45→05:42)
[2017-10-05] MEDS: LACTATED RINGER'S 1000ML 1,000 ML IV SCH ×2 (00:45→14:05)
[2017-10-05] MEDS: ACETAMINOPHEN IV 100 ML IV PRN ×2 (02:30→22:13)
[2017-10-05 04:32] LABS: BASO ABS # 0.01 K/uL (0-0.2); HEMATOCRIT 31.9 % (37-47); HEMOGLOBIN 10.2 g/dL (12.0-16.0); IG# 0.08 K/uL (0.00-0.02); LYMPH ABS # 0.87 K/uL (1.2-3.4); MEAN CELL VOLUME 86.9 fL (80-100); MEAN CORPUSCULAR HEMOGLOBIN 27.8 pg (25-34); MEAN PLATELET VOLUME 9.4 fL (7.4-10.4); MONO ABS # 1.08 K/uL (0.11-0.59); NEUT % 90.6 %; NEUT ABS # 19.72 K/uL (1.4-6.5); PLATELET COUNT 306 K/uL (130-400); RED CELL DISTRIBUTION WIDTH CV 15.9 % (11.5-14.5); RED CELL DISTRIBUTION WIDTH SD 50.6 fL (36.4-46.3); WHITE BLOOD COUNT 21.76 K/uL (4.8-10.8)
[2017-10-05 05:03] LABS: CALCIUM 8.6 mg/dl (8.5-10.1); CREATININE 1.01 mg/dl (0.60-1.20)
--- NOTE | 2017-10-05 07:58 | Surgery Progress Note ---
Surgery Progress Note Date of Service October 05, 2017. Subjective Post OP Day: 1 + feeling well, + pain controlled, + diet (ice), No nausea Objective Vital Signs: Date Time Temp Pulse Resp B/P (MAP) Pulse Ox O2 Delivery O2 Flow Rate FiO2 10/05/17 06:00 62 21 112/54 (73) 100 Nasal Cannula 2.0 10/05/17 04:00 36.4 69 12 104/48 (66) 95 Nasal Cannula 2.0 10/05/17 04:00 Nasal Cannula 2.0 10/05/17 02:00 69 14 108/56 (73) 97 Nasal Cannula 2.0 10/05/17 00:01 36.4 75 19 114/51 (72) 100 Nasal Cannula 2.0 10/04/17 23:59 Nasal Cannula 2.0 10/04/17 22:02 61 20 124/68 (86) 100 Nasal Cannula 2.0 10/04/17 21:05 36.8 62 18 123/65 (84) 100 Nasal Cannula 2.0 10/04/17 20:14 36.3 55 18 114/65 (81) 100 Nasal Cannula 2.0 10/04/17 19:15 36.3 58 18 111/58 (75) 100 Nasal Cannula 2.0 10/04/17 19:15 100 Nasal Cannula 2.0 10/04/17 19:00 36.7 58 18 111/68 (82) 100 Nasal Cannula 2.0 10/04/17 18:30 36.6 55 18 107/53 (71) 100 Nasal Cannula 2.0 10/04/17 18:00 36.6 56 18 106/60 (75) 100 Nasal Cannula 2.0 10/04/17 17:45 58 18 109/57 (74) 100 Nasal Cannula 2.0 10/04/17 17:30 36.4 56 18 112/64 (80) 100 Nasal Cannula 2.0 10/04/17 17:20 36.4 54 18 103/48 (66) 100 Nasal Cannula 2.0 10/04/17 17:10 36.4 48 18 92/51 (65) 100 Nasal Cannula 2.0 10/04/17 17:00 100 Nasal Cannula 2.0 10/04/17 16:54 62 16 10/04/17 16:54 63 16 100 10/04/17 16:51 107/59 5/2/18 16:49 64 15 100 5/2/18 16:49 63 15 5/2/18 16:46 109/60 5/2/18 16:44 59 18 100 5/2/18 16:44 57 18 5/2/18 16:41 106/53 5/2/18 16:39 46 18 5/2/18 16:39 46 18 100 5/2/18 16:38 48 14 5/2/18 16:38 48 14 100 5/2/18 16:36 105/51 5/2/18 16:33 54 15 100 5/2/18 16:33 56 15 5/2/18 16:31 104/50 5/2/18 16:29 36.0 100 Nasal Cannula 2 5/2/18 16:28 49 11 100 5/2/18 16:28 48 11 5/2/18 16:27 47 14 5/2/18 16:27 48 14 100 5/2/18 16:26 103/58 5/2/18 16:22 50 18 100 5/2/18 16:22 50 18 5/2/18 16:21 102/48 5/2/18 16:17 50 16 100 5/2/18 16:17 50 16 5/2/18 16:16 111/50 5/2/18 16:12 50 16 100 5/2/18 16:12 51 16 5/2/18 16:11 50 16 106/54 100 5/2/18 16:11 51 16 5/2/18 16:08 106/54 5/2/18 16:06 51 12 5/2/18 16:06 51 12 100 5/2/18 16:05 51 15 100 5/2/18 16:05 52 15 5/2/18 16:01 102/55 5/2/18 16:00 53 13 100 5/2/18 16:00 53 13 5/2/18 15:56 102/57 5/2/18 15:55 54 12 5/2/18 15:55 54 12 100 5/2/18 15:51 110/56 5/2/18 15:50 57 12 100 5/2/18 15:50 58 12 5/2/18 15:46 113/63 5/2/18 15:45 62 12 100 5/2/18 15:45 36.3 58 13 113/63 100 Oxymask 10 10/04/17 15:45 63 12 10/04/17 09:03 36.7 90 20 133/77 100 Room Air Physical Exam: KARI drainage (35), urine output (225) Abdomen: non distended, soft Incision(s): clean, dry (dressing) Laboratory Results: Results Past 24 Hours Test 10/04/17 16:03 10/04/17 21:44 10/04/17 21:49 10/04/17 23:58 Range/Units Hemoglobin 10.7 10.8 12.0-16.0 g/dL Hematocrit 32.1 33.3 37-47 % Sodium Level 137 136-145 mmol/L Potassium Level 4.1 3.5-5.1 mmol/L Chloride Level 104 98-107 mmol/L Carbon Dioxide Level 28 21-32 mmol/L Anion Gap 6.0 3-11 mmol/L Blood Urea Nitrogen 3 7-18 mg/dl Creatinine 0.86 0.60-1.20 mg/dl Est Creatinine Clear Calc Drug Dose 48.9 ml/min Estimated GFR () 73.9 Estimated GFR (Non- 63.8 BUN/Creatinine Ratio 3.4 10-20 Random Glucose 193 70-99 mg/dl Calcium Level 8.2 8.5-10.1 mg/dl Bedside Glucose 165 70-90 mg/dl Test 10/05/17 04:10 Range/Units White Blood Count 21.76 4.8-10.8 K/uL Red Blood Count 3.67 4.2-5.4 M/uL Hemoglobin 10.2 12.0-16.0 g/dL Hematocrit 31.9 37-47 % Mean Corpuscular Volume 86.9 80-100 fL Mean Corpuscular Hemoglobin 27.8 25-34 pg Mean Corpuscular Hemoglobin Concent 32.0 32-36 g/dl Platelet Count 306 130-400 K/uL Mean Platelet Volume 9.4 7.4-10.4 fL Neutrophils (%) (Auto) 90.6 % Lymphocytes (%) (Auto) 4.0 % Monocytes (%) (Auto) 5.0 % Eosinophils (%) (Auto) 0.0 % Basophils (%) (Auto) 0.0 % Neutrophils # (Auto) 19.72 1.4-6.5 K/uL Lymphocytes # (Auto) 0.87 1.2-3.4 K/uL Monocytes # (Auto) 1.08 0.11-0.59 K/uL Eosinophils # (Auto) 0.00 0-0.5 K/uL Basophils # (Auto) 0.01 0-0.2 K/uL RDW Standard Deviation 50.6 36.4-46.3 fL RDW Coefficient of Variation 15.9 11.5-14.5 % Immature Granulocyte % (Auto) 0.4 % Immature Granulocyte # (Auto) 0.08 0.00-0.02 K/uL Sodium Level 135 136-145 mmol/L Potassium Level 5.0 3.5-5.1 mmol/L Chloride Level 103 98-107 mmol/L Carbon Dioxide Level 27 21-32 mmol/L Anion Gap 5.0 3-11 mmol/L Blood Urea Nitrogen 4 7-18 mg/dl Creatinine 1.01 0.60-1.20 mg/dl Est Creatinine Clear Calc Drug Dose 41.6 ml/min Estimated GFR () 60.9 Estimated GFR (Non- 52.5 BUN/Creatinine Ratio 3.9 10-20 Random Glucose 179 70-99 mg/dl Calcium Level 8.6 8.5-10.1 mg/dl Microbiology Results 10/04/17 MRSA DNA Surveillance Screen - Final, Complete Specimen Negative for MRSA by DNA Probe Assessment & Plan partial colonic resection with en bloc wedge gastrectomy recent LLE DVT, bilat PE UOP marginal, can begin clears H&H stable, will start low dose heparin gtt OOB as adelina probably d/c rae later today
[2017-10-05] MEDS: PANTOprazole INJ 40 MG in SYRINGE 0 ML IV SCH (07:59)
[2017-10-05] MEDS ORDERED: HEPARIN IV LOW DOSE NO BOLUS SCH (08:20)
--- NOTE | 2017-10-05 09:30 | Clinical Documentation Query ---
HANK Mejia : CLINICAL DOCUMENTATION QUERY Patient is an 82 year old female admitted for diagnostic laparoscopy; partial colonic resection with en bloc wedge gastrectomy; primary colocolonic anastomosis. Documentation includes " recently diagnosed with new onset DVTs with pulmonary embolism on September 14, 2017". According to [facility] coding guidelines, DVT's/PE's can be considered "acute" for the duration of treatment. Acute PE: Patients with acute PE typically develop signs and symptoms immediately after obstruction of the pulmonary artery(ies) *"Acute" defines the period of time beginning with the initial diagnosis, up to and including the entire period of time where anticoagulation is administered (3-12 months). *Indicators: dyspnea, pleuritic chest pain, tachycardia, anxiety, diaphoresis, cough, rales, rhonchi, hemoptysis, S2, S3 or S4 gallop, cyanosis; CT of chest = concave filling defect ("trailing edge") *Treatment: anticoagulants 3-6 months. As appropriate, consider explicit documentation of the acuity of these conditions as this impacts DRG assignment. Thank you. In your clinical opinion is this patient being managed for: ( x ) Acute/Sub-acute PE and LLE DVT This is an acute PE/DVT, diagnosed PREOPERATIVELY ( ) Not Agree ( ) Other explanation of clinical findings (Please Explain. If no explanation given, this would be considered a no response.) ( ) Unable to determine ( ) Need to Discuss (Please call CDS via extension or qliq. If no interaction occurs this is considered a no response.) The medical record reflects the following clinical findings, treatment, and risk factors. Clinical Indicators: As above Treatment: Coumadin initially, subsequently with IVC filter Risk Factors: Age, possible cancer, relative immobility Please clarify and document your clinical opinion in the progress notes and discharge summary. Terms such as "probable", "suspected", "likely", "questionable", "possible", or "still to be ruled out" are acceptable. IF IN AGREEMENT, YOU MUST DOCUMENT ABOVE DIAGNOSTIC STATEMENT IN DAILY PROGRESS NOTES AND DISCHARGE SUMMARY. This document is not part of the patient's record. Thank You, Aureliano Walsh, RN [phone]
--- NOTE | 2017-10-05 09:33 | Clinical Documentation Query ---
ZAKI HAYES : CLINICAL DOCUMENTATION QUERY Patient is an 82 year old female admitted for diagnostic laparoscopy; partial colonic resection with en bloc wedge gastrectomy; primary colocolonic anastomosis. Documentation includes " recently diagnosed with new onset DVTs with pulmonary embolism on September 14, 2017". According to CMS coding guidelines, DVT's/PE's can be considered "acute" for the duration of treatment. Acute PE: Patients with acute PE typically develop signs and symptoms immediately after obstruction of the pulmonary artery(ies) *"Acute" defines the period of time beginning with the initial diagnosis, up to and including the entire period of time where anticoagulation is administered (3-12 months). *Indicators: dyspnea, pleuritic chest pain, tachycardia, anxiety, diaphoresis, cough, rales, rhonchi, hemoptysis, S2, S3 or S4 gallop, cyanosis; CT of chest = concave filling defect ("trailing edge") *Treatment: anticoagulants 3-6 months. As appropriate, consider explicit documentation of the acuity of these conditions as this impacts DRG assignment. Thank you. In your clinical opinion is this patient being managed for: (x ) Acute/Sub-acute PE and LLE DVT ( ) Not Agree ( ) Other explanation of clinical findings (Please Explain. If no explanation given, this would be considered a no response.) ( ) Unable to determine ( ) Need to Discuss (Please call CDS via extension or qliq. If no interaction occurs this is considered a no response.) The medical record reflects the following clinical findings, treatment, and risk factors. Clinical Indicators: As above Treatment: Coumadin initially, subsequently with IVC filter Risk Factors: Age, possible cancer, relative immobility Please clarify and document your clinical opinion in the progress notes and discharge summary. Terms such as "probable", "suspected", "likely", "questionable", "possible", or "still to be ruled out" are acceptable. IF IN AGREEMENT, YOU MUST DOCUMENT ABOVE DIAGNOSTIC STATEMENT IN DAILY PROGRESS NOTES AND DISCHARGE SUMMARY. This document is not part of the patient's record. Thank You, Aureliano Walsh RN [phone]
[2017-10-05 09:34] LABS: BASO % 0.1 %; BASO ABS # 0.01 K/uL (0-0.2); HEMATOCRIT 30.5 % (37-47); HEMOGLOBIN 9.8 g/dL (12.0-16.0); IG# 0.05 K/uL (0.00-0.02); LYMPH % 6.8 %; LYMPH ABS # 1.21 K/uL (1.2-3.4); MEAN CELL VOLUME 86.9 fL (80-100); MEAN CORPUSCULAR HEMOGLOBIN 27.9 pg (25-34); MEAN PLATELET VOLUME 9.7 fL (7.4-10.4); MONO % 3.1 %; MONO ABS # 0.56 K/uL (0.11-0.59); NEUT % 89.7 %; NEUT ABS # 16.06 K/uL (1.4-6.5); PLATELET COUNT 317 K/uL (130-400); RED CELL DISTRIBUTION WIDTH SD 51.4 fL (36.4-46.3); WHITE BLOOD COUNT 17.89 K/uL (4.8-10.8)
[2017-10-05 09:41] LABS: MEAN CORPUSCULAR HGB CONC 32.1 g/dl (32-36)
[2017-10-05 09:44] LABS: INR 1.2 (0.9-1.1); PTT PATIENT 28.5 SECONDS (21.0-31.0)
[2017-10-05] MEDS: HEPARIN 25,000 UNIT/500ML D5W 500 ML IV SCH (10:02)
--- NOTE | 2017-10-05 11:48 | Critical Care Progress Note ---
Critical Care Progress Note Date of Service October 05, 2017. Attending Dr. Barclay Subjective Found patient sitting up early this morning. She says her pain is been controlled with Tylenol thus far. Overall she denies any chest pain, shortness of breath, or any other acute concerns. She says that the current swelling in her left leg is a new baseline for her since her diagnosis of DVT. Objective General Appearance: Awake, alert & oriented, comfortable in general, NAD. CV: +S1S2 RRR, no murmur. Pulm: Clear to auscultation throughout. Abdomen: +BS, soft, minimally and appropriately tender postoperatively, surgical dressing c/d/i. Stanley cath. KARI draining serosanguineous fluid. Extremities: 1+ LLE distal edema. No distal edema in RLE. Moving all extremities naturally and easily. Neuro: No gross neuro deficits. Assessment & Plan 82-year-old female admitted on 04 Oct 2017 for planned surgery. POD #1 from diagnostic laparoscopy, partical colectomy, en bloc partial gastric resection, colo-colonic anastomosis. PMH: DVT, bilateral PE, pulmonary nodule, acute blood loss anemia, colonic mass. PSH: IVC filter placement, thyroid cyst removal. 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 Pain controlled with Tylenol. No acute neuro issues. Pulm: Recent history of bilateral PEs. Presently no respiratory distress. SpO2 100% on 2 L nasal cannula. CVS: No known emergent issues. However, [id number] echocardiogram noted a questionable right to left intra-atrial shunt. Discussed the same with surgery (primary team). Consulting cardiology for further evaluation of the same. ID: Afebrile, WBC improved to 18. Received cefoxitin perioperatively. No known acute infectious issues. Monitoring. Endo: No known diabetes or thyroid disease. On ICU hyperglycemia protocol. Renal/Lytes: Cr 1.0. Borderline hyperkalemia, monitoring. On IVF. GI: Advancing diet postop to clear liquid diet per surgery recommendations. KARI draining serosanguineous fluid. See related surgery notes. Heme: Placed on Xarelto and IVC filter in Sep 2017. Xarelto since held due to LGIB. On heparin now post-op. Hb this morning 9.8. Serially monitoring. Platelets 317. INR 1.2. DVT prophy: PMH recently-diagnosed extensive LLE DVT, s/p IVC filter placed. Presently on heparin postoperatively. Lines: PIV. Stanley cath. Code status: Full code. PT/OT: Deferred. Disposition: ICU care. If patient's Hb remains stable, consider transfer to [facility] in p.m. Resident Physician Supervision Note: Dr. Harris was resident physician during care of patient. I separately evaluated patient and did history and exam. I discussed the case with the resident and generally agree with the findings and plan. H&H remained stable at this time, repeated limited echo to evaluate right to left shunt, no convincing evidence seen at this time, to further evaluate this would require transesophageal echocardiogram and patient is asymptomatic at this time, feel risks would outweigh benefits. Stable for downgrade out of the ICU. Documented By: Aureliano Barclay DO Consults & Procedures Consultants: Cardiology, general surgery. Procedures: Operative Date October 04, 2017. 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 Procedure(s) Performed Diagnostic laparoscopy; partial colonic resection with en bloc wedge gastrectomy ; primary colocolonic anastomosis Data Medications: Current Inpatient Medications Medications (Trade) Dose Ordered Sig/Ramila Route Start Time Stop Time Status Last Admin Dose Admin Lactated Ringer's 1,000 ml @ 50 mls/hr Q20H IV 10/04/17 15:45 11/03/17 15:44 10/05/17 00:45 100 MLS/HR Acetaminophen 100 ml @ 400 mls/hr Q8H PRN IV 10/04/17 15:45 11/03/17 15:44 10/05/17 02:30 400 MLS/HR Morphine Sulfate (MoRPHine SULFATE INJ) 2 mg Q1H PRN IV 10/04/17 15:45 10/18/17 15:44 Ondansetron HCl (Zofran Inj) 4 mg Q6H PRN IV 10/04/17 15:45 11/03/17 15:44 Pantoprazole Sodium 40 mg/ Syringe 10 ml @ 5 mls/min DAILY IV 10/05/17 09:00 11/04/17 08:59 10/05/17 07:59 5 MLS/MIN Miscellaneous Information (Icu Protocol For Hyperglycemia) 1 ea PRN PRN N/A 10/04/17 16:45 10/06/17 16:44 Heparin Sodium/ Dextrose 500 ml @ 14 mls/hr Q24H IV 10/05/17 08:15 11/04/17 08:14 10/05/17 10:02 14 MLS/HR Vital Signs: Date Time Temp Pulse Resp B/P (MAP) Pulse Ox O2 Delivery O2 Flow Rate FiO2 10/05/17 08:01 36.4 64 26 88/47 (61) 100 Nasal Cannula 2.0 10/05/17 08:00 64 17 100 10/05/17 07:45 Nasal Cannula 2.0 10/05/17 07:02 94 19 100/43 (62) 100 10/05/17 07:00 58 11 100 10/05/17 06:00 62 21 112/54 (73) 100 Nasal Cannula 2.0 10/05/17 04:00 36.4 69 12 104/48 (66) 95 Nasal Cannula 2.0 10/05/17 04:00 Nasal Cannula 2.0 10/05/17 02:00 69 14 108/56 (73) 97 Nasal Cannula 2.0 10/05/17 00:01 36.4 75 19 114/51 (72) 100 Nasal Cannula 2.0 10/04/17 23:59 Nasal Cannula 2.0 10/04/17 22:02 61 20 124/68 (86) 100 Nasal Cannula 2.0 10/04/17 21:05 36.8 62 18 123/65 (84) 100 Nasal Cannula 2.0 10/04/17 20:14 36.3 55 18 114/65 (81) 100 Nasal Cannula 2.0 10/04/17 19:15 36.3 58 18 111/58 (75) 100 Nasal Cannula 2.0 10/04/17 19:15 100 Nasal Cannula 2.0 10/04/17 19:00 36.7 58 18 111/68 (82) 100 Nasal Cannula 2.0 10/04/17 18:30 36.6 55 18 107/53 (71) 100 Nasal Cannula 2.0 10/04/17 18:00 36.6 56 18 106/60 (75) 100 Nasal Cannula 2.0 10/04/17 17:45 58 18 109/57 (74) 100 Nasal Cannula 2.0 10/04/17 17:30 36.4 56 18 112/64 (80) 100 Nasal Cannula 2.0 10/04/17 17:20 36.4 54 18 103/48 (66) 100 Nasal Cannula 2.0 5/2/18 17:10 36.4 48 18 92/51 (65) 100 Nasal Cannula 2.0 5/2/18 17:00 100 Nasal Cannula 2.0 5/2/18 16:54 62 16 5/2/18 16:54 63 16 100 5/2/18 16:51 107/59 5/2/18 16:49 64 15 100 5/2/18 16:49 63 15 5/2/18 16:46 109/60 5/2/18 16:44 59 18 100 5/2/18 16:44 57 18 5/2/18 16:41 106/53 5/2/18 16:39 46 18 5/2/18 16:39 46 18 100 5/2/18 16:38 48 14 5/2/18 16:38 48 14 100 5/2/18 16:36 105/51 5/2/18 16:33 54 15 100 5/2/18 16:33 56 15 5/2/18 16:31 104/50 5/2/18 16:29 36.0 100 Nasal Cannula 2 5/2/18 16:28 49 11 100 5/2/18 16:28 48 11 5/2/18 16:27 47 14 5/2/18 16:27 48 14 100 5/2/18 16:26 103/58 5/2/18 16:22 50 18 100 5/2/18 16:22 50 18 5/2/18 16:21 102/48 5/2/18 16:17 50 16 100 5/2/18 16:17 50 16 5/2/18 16:16 111/50 5/2/18 16:12 50 16 100 5/2/18 16:12 51 16 5/2/18 16:11 50 16 106/54 100 5/2/18 16:11 51 16 5/2/18 16:08 106/54 5/2/18 16:06 51 12 5/2/18 16:06 51 12 100 5/2/18 16:05 51 15 100 5/2/18 16:05 52 15 5/2/18 16:01 102/55 5/2/18 16:00 53 13 100 5/2/18 16:00 53 13 5/2/18 15:56 102/57 5/2/18 15:55 54 12 10/04/17 15:55 54 12 100 10/04/17 15:51 110/56 10/04/17 15:50 57 12 100 10/04/17 15:50 58 12 10/04/17 15:46 113/63 10/04/17 15:45 62 12 100 10/04/17 15:45 36.3 58 13 113/63 100 Oxymask 10 10/04/17 15:45 63 12 Laboratory Results: Last 24 Hours Test 10/04/17 16:03 10/04/17 21:44 10/04/17 21:49 10/04/17 23:58 Hemoglobin 10.7 g/dL 10.8 g/dL Hematocrit 32.1 % 33.3 % Sodium Level 137 mmol/L Potassium Level 4.1 mmol/L Chloride Level 104 mmol/L Carbon Dioxide Level 28 mmol/L Anion Gap 6.0 mmol/L Blood Urea Nitrogen 3 mg/dl Creatinine 0.86 mg/dl Est Creatinine Clear Calc Drug Dose 48.9 ml/min Estimated GFR () 73.9 Estimated GFR (Non- 63.8 BUN/Creatinine Ratio 3.4 Random Glucose 193 mg/dl Calcium Level 8.2 mg/dl Bedside Glucose 165 mg/dl Test 10/05/17 04:10 10/05/17 06:47 10/05/17 08:14 White Blood Count 21.76 K/uL 17.89 K/uL Red Blood Count 3.67 M/uL 3.51 M/uL Hemoglobin 10.2 g/dL 9.8 g/dL Hematocrit 31.9 % 30.5 % Mean Corpuscular Volume 86.9 fL 86.9 fL Mean Corpuscular Hemoglobin 27.8 pg 27.9 pg Mean Corpuscular Hemoglobin Concent 32.0 g/dl 32.1 g/dl Platelet Count 306 K/uL 317 K/uL Mean Platelet Volume 9.4 fL 9.7 fL Neutrophils (%) (Auto) 90.6 % 89.7 % Lymphocytes (%) (Auto) 4.0 % 6.8 % Monocytes (%) (Auto) 5.0 % 3.1 % Eosinophils (%) (Auto) 0.0 % 0.0 % Basophils (%) (Auto) 0.0 % 0.1 % Neutrophils # (Auto) 19.72 K/uL 16.06 K/uL Lymphocytes # (Auto) 0.87 K/uL 1.21 K/uL Monocytes # (Auto) 1.08 K/uL 0.56 K/uL Eosinophils # (Auto) 0.00 K/uL 0.00 K/uL Basophils # (Auto) 0.01 K/uL 0.01 K/uL RDW Standard Deviation 50.6 fL 51.4 fL RDW Coefficient of Variation 15.9 % 16.0 % Immature Granulocyte % (Auto) 0.4 % 0.3 % Immature Granulocyte # (Auto) 0.08 K/uL 0.05 K/uL Sodium Level 135 mmol/L Potassium Level 5.0 mmol/L Chloride Level 103 mmol/L Carbon Dioxide Level 27 mmol/L Anion Gap 5.0 mmol/L Blood Urea Nitrogen 4 mg/dl Creatinine 1.01 mg/dl Est Creatinine Clear Calc Drug Dose 41.6 ml/min Estimated GFR () 60.9 Estimated GFR (Non- 52.5 BUN/Creatinine Ratio 3.9 Random Glucose 179 mg/dl Calcium Level 8.6 mg/dl Bedside Glucose 158 mg/dl Prothrombin Time 12.2 SECONDS Prothromb Time International Ratio 1.2 Activated Partial Thromboplast Time 28.5 SECONDS Partial Thromboplastin Ratio 1.1 Resident Tracking Resident Involvement: Resident Care Provided Care Provided: Adult Hospital Medicine (ICU)
[2017-10-05 13:27] LABS: HEMATOCRIT 30.6 % (37-47)
--- NOTE | 2017-10-05 14:35 | ECHOCARDIOGRAM REPORT ---
*NOTICE TO RECEIVING REPUBLICAN AGENCY This information is strictly Confidential and protected under [place] law. [place] law prohibits you from making any further disclosure of this information unless further disclosure is expressly permitted by the written consent of the person to whom it pertains or is authorized by law. A general authorization for the release of medical or other information is not sufficient for this purpose. Hospital accepts no responsibility if the information is made available to any other person, INCLUDING THE PATIENT. Interpretation Summary * Name: REBECCA STEPHENS Study Date: 10/05/2017 01:53 PM BP: 104/59 mmHg * Patient Location: .MSICU\S\E107\S\1 HR: 74 * : 1935 (M/d/yyy) Gender: Female Height: 64 in * Age: 82 yrs Ethnicity: CA Weight: 146 lb * Ordering Physician: Calvin Harris. * Referring Physician: Zev To * Performed By: Aurora Shay RDCS * * Reason For Study: PFO * BSA: 1.7 m2 * -- Conclusions -- * 1. Grossly normal left ventricular size. Grossly normal left ventricular systolic function. Estimated EF 55-60%. Cannot exclude wall motion abnormalities on this limited study. No significant left ventricular hypertrophy. * 2. No visualized ASD. There was no right to left inter atrial shunt noted following agitated saline injection, however image quality is suboptimal. * 3. No significant pericardial effusion noted. * 4. Limited 2D study with limited color Doppler as per request. * 5. Compared to prior study on 09/12/2017, current study is limited. Pericardial effusion is no longer visualized. Procedure Details * A saline contrast injection was performed to assess for cardiac shunting. * The injection was performed through an intravenous line in the left arm. * The attending nurse who injected the saline contrast was JJ BEAULIEU RN. * A total of 20 cc of agitated saline was given. Left Ventricle * The left ventricle is normal in size. * There is normal left ventricular wall thickness. * Grossly normal left ventricular systolic function. * Regional wall motion abnormalities cannot be excluded due to limited visualization. Right Ventricle * The right ventricle is not well visualized. Atria * Grossly normal left atrial size. * Right atrium not well visualized. * No visualized ASD. There was no right to left inter atrial shunt noted following agitated saline injection, however image quality is suboptimal. Mitral Valve * The mitral valve is grossly normal. Tricuspid Valve * The tricuspid valve is not well visualized. Aortic Valve * The aortic valve is not well visualized. Pulmonic Valve * The pulmonic valve is not well visualized. MMode 2D Measurements and Calculations IVSd 0.66 cm LVIDd 4.1 cm LVIDs 2.8 cm LVPWd 0.71 cm IVS/LVPW 0.93 FS 32.5 % EDV(Teich) 75.9 ml ESV(Teich) 29.4 ml EF(Teich) 61.3 % EDV(cubed) 70.9 ml ESV(cubed) 21.8 ml EF(cubed) 69.3 % LV mass(C)d 80.7 grams LV mass(C)dI 47.2 grams/m\S\2 SV(Teich) 46.5 ml SI(Teich) 27.2 ml/m\S\2 SV(cubed) 49.1 ml SI(cubed) 28.7 ml/m\S\2 Ao root diam 2.9 cm Ao root area 6.4 cm\S\2
[2017-10-05 16:15] LABS: PTT PATIENT 42.5 SECONDS (21.0-31.0)
[2017-10-05] MEDS ORDERED: HEPARIN IV BOLUS 2,000 UNIT in SYRINGE 0 ML IV ONE (16:45)
[2017-10-05 23:07] LABS: PTT PATIENT 58.7 SECONDS (21.0-31.0)
[2017-10-06] VITALS (7 sets, daily range): BP systolic 115–145; BP diastolic 69–77; PULSE 69–80; TEMP 36.6–37.1; O2SAT 91–97
--- NOTE | 2017-10-06 07:25 | Surgery Progress Note ---
Surgery Progress Note Date of Service October 06, 2017. Subjective Post OP Day: 2 + feeling well, + pain controlled (Tylenol), No flatus, No nausea Objective Vital Signs: Date Time Temp Pulse Resp B/P (MAP) Pulse Ox O2 Delivery O2 Flow Rate FiO2 10/06/17 04:02 36.8 69 20 125/69 (87) 96 Room Air 10/06/17 04:00 Room Air 10/06/17 00:01 Room Air 10/05/17 23:21 36.9 73 20 114/66 (82) 97 Room Air 10/05/17 20:00 Room Air 10/05/17 19:33 37.0 80 18 120/68 (85) 99 10/05/17 18:38 36.6 80 18 121/73 (89) 99 10/05/17 16:20 Nasal Cannula 2.0 10/05/17 16:00 81 18 127/59 (81) 95 Room Air 10/05/17 15:00 76 12 110/65 (80) 98 10/05/17 14:25 65 17 117/60 (79) 97 10/05/17 14:01 78 25 117/60 (79) 81 10/05/17 14:00 69 17 100 10/05/17 13:01 64 22 118/53 (74) 100 10/05/17 13:00 73 24 100 10/05/17 12:01 36.4 74 16 104/59 (74) 98 Nasal Cannula 2.0 10/05/17 12:00 70 18 99 10/05/17 11:15 Nasal Cannula 2.0 10/05/17 11:01 75 20 109/56 (73) 10/05/17 11:00 71 21 10/05/17 10:01 74 19 102/52 (69) 100 Nasal Cannula 2.0 10/05/17 10:00 67 17 100 10/05/17 09:01 60 12 117/64 (81) 100 10/05/17 09:00 58 12 100 10/05/17 08:01 36.4 64 26 88/47 (61) 100 Nasal Cannula 2.0 10/05/17 08:00 64 17 100 10/05/17 08:00 Nasal Cannula 10/05/17 07:45 Nasal Cannula 2.0 Physical Exam: KARI drainage (20 cc), urine output (450) Abdomen: non distended, soft Incision(s): clean, dry Laboratory Results: Results Past 24 Hours Test 10/05/17 08:14 10/05/17 11:05 10/05/17 13:11 10/05/17 15:56 Range/Units White Blood Count 17.89 4.8-10.8 K/uL Red Blood Count 3.51 4.2-5.4 M/uL Hemoglobin 9.8 10.0 12.0-16.0 g/dL Hematocrit 30.5 30.6 37-47 % Mean Corpuscular Volume 86.9 80-100 fL Mean Corpuscular Hemoglobin 27.9 25-34 pg Mean Corpuscular Hemoglobin Concent 32.1 32-36 g/dl Platelet Count 317 130-400 K/uL Mean Platelet Volume 9.7 7.4-10.4 fL Neutrophils (%) (Auto) 89.7 % Lymphocytes (%) (Auto) 6.8 % Monocytes (%) (Auto) 3.1 % Eosinophils (%) (Auto) 0.0 % Basophils (%) (Auto) 0.1 % Neutrophils # (Auto) 16.06 1.4-6.5 K/uL Lymphocytes # (Auto) 1.21 1.2-3.4 K/uL Monocytes # (Auto) 0.56 0.11-0.59 K/uL Eosinophils # (Auto) 0.00 0-0.5 K/uL Basophils # (Auto) 0.01 0-0.2 K/uL RDW Standard Deviation 51.4 36.4-46.3 fL RDW Coefficient of Variation 16.0 11.5-14.5 % Immature Granulocyte % (Auto) 0.3 % Immature Granulocyte # (Auto) 0.05 0.00-0.02 K/uL Prothrombin Time 12.2 9.0-12.0 SECONDS Prothromb Time International Ratio 1.2 0.9-1.1 Activated Partial Thromboplast Time 28.5 42.5 21.0-31.0 SECONDS Partial Thromboplastin Ratio 1.1 1.6 Bedside Glucose 173 70-90 mg/dl Test 10/05/17 22:31 10/06/17 04:44 Range/Units Activated Partial Thromboplast Time 58.7 21.0-31.0 SECONDS Partial Thromboplastin Ratio 2.3 Assessment & Plan partial colonic resection with en bloc wedge gastrectomy subacute LLE DVT, bilat PE will advance to full liquids H&H stable, continue low dose heparin gtt ambulate
--- NOTE | 2017-10-06 07:29 | Discharge Instructions ---
Discharge Instructions Date of Service October 06, 2017. Admission Reason for Admission: Colonic Mass Discharge Discharge Diagnosis / Problem: colon resection Discharge Goals Goal(s): Improve nutritional status Activity Recommendations Activity Limitations: as noted below Lifting Limitations: no more than 10 pounds Shower/Bathe: no limitations Driving or Machine Use: in 1 week . Instructions / Follow-Up Instructions / Follow-Up Dr. To in approx 1 week, call [phone] to schedule or if you have any questions Current Hospital Diet Patient's current hospital diet: Full Liquid Diet Discharge Diet Recommended Diet: Low Fiber Diet, Low Fat Diet Procedures Procedures Performed: Diagnostic laparoscopy, partical colectomy, en bloc partial gastric resection, colo-colonic anastomosis Pending Studies Studies pending at discharge: yes List of pending studies: pathology Medical Emergencies . Who to Call and When: Medical Emergencies: If at any time you feel your situation is an emergency, please call 911 immediately. . Non-Emergent Contact Non-Emergency issues call your: Surgeon Call Non-Emergent contact if: you have a fever, temperature is above 101.5, your pain is not controlled, wound has increased drainage, wound has increased redness, you have any medication questions . "Provider Documentation" section prepared by Juan Baptiste. .
[2017-10-06] MEDS ORDERED: HYDROCODONE/ACETAMIN 5/325MG TAB PO PRN ×2 (07:30)
[2017-10-06 07:42] LABS: BASO % 0.1 %; BASO ABS # 0.01 K/uL (0-0.2); EOS % 0.5 %; EOS ABS # 0.06 K/uL (0-0.5); HEMATOCRIT 30.8 % (37-47); HEMOGLOBIN 9.8 g/dL (12.0-16.0); IG# 0.05 K/uL (0.00-0.02); LYMPH % 11.2 %; LYMPH ABS # 1.38 K/uL (1.2-3.4); MEAN CORPUSCULAR HEMOGLOBIN 27.4 pg (25-34); MEAN CORPUSCULAR HGB CONC 31.8 g/dl (32-36); MEAN PLATELET VOLUME 9.5 fL (7.4-10.4); MONO % 5.7 %; MONO ABS # 0.71 K/uL (0.11-0.59); NEUT % 82.1 %; NEUT ABS # 10.15 K/uL (1.4-6.5); PLATELET COUNT 310 K/uL (130-400); RED CELL DISTRIBUTION WIDTH SD 50.9 fL (36.4-46.3); WHITE BLOOD COUNT 12.36 K/uL (4.8-10.8)
[2017-10-06 07:58] LABS: PTT PATIENT 49.4 SECONDS (21.0-31.0)
[2017-10-06 08:16] LABS: CALCIUM 8.4 mg/dl (8.5-10.1); CREATININE 0.75 mg/dl (0.60-1.20); POTASSIUM 4.1 mmol/L (3.5-5.1)
[2017-10-06] MEDS: PANTOprazole INJ 40 MG in SYRINGE 0 ML IV SCH (08:29)
[2017-10-06] MEDS: LACTATED RINGER'S 1000ML 1,000 ML IV SCH (08:29)
[2017-10-06] MEDS: HEPARIN 25,000 UNIT/500ML D5W 500 ML IV SCH ×2 (08:31→15:07)
[2017-10-06] MEDS ORDERED: HYDR-5688 PO (09:25)
[2017-10-06] MEDS: KETOROLAC TROMETHAMINE 15 MG/ML VIAL IV SCH ×2 (13:48→19:35)
--- NOTE | 2017-10-06 15:18 | Medical Consult ---
Consultation Date of Consultation: October 06, 2017. Attending Physician: Zev To DO History of Present Illness Ms. Mathias initially had a PE/DVT 09/12 and had an IVC filter placed and was put on Xeralto. She was discharged and developed a GI bleed and was found to have a mass in her colon. She did not have any past medical history until her admission earlier in September. She was transferred up from the ICU today. ROS Constitutional: no chills, aches, sweats or fever Respiratory: no sob,cough, sputum, or wheezing Cardiac: no chest pain, palpitations, edema, orthopnea or lightheadedness GI:mild abdominal soreness, nausea, vomiting, diarrhea or constipation : no dysuria or hesitancy Extremities: no joint pain or weakness Skin: no rash All other systems reviewed and negative Family History Family history was reviewed; no changes noted. Social History Smoking Status: Never Smoker Smokeless Tobacco Use: No Alcohol Use: none Drug Use: none Marital Status: Housing Status: lives alone Occupation Status: retired Allergies Coded Allergies: No Known Allergies (Unverified , 10/04/17) Home Medications Active [place] 5MG/325MG (Acetaminophen/Hydrocodone Bitart) Tab 1 Tablet PO Q4H PRN Reported Prilosec (Omeprazole) 20 Mg Capcr 40 Mg PO QAM Move Free Joint Health Ad (Fyurumyqfyt-Wbcgfztqtrs-Jvnmje) 1 Tab Tab 1 Tab PO QAM Current Inpatient Medications Current Inpatient Medications Medications (Trade) Dose Ordered Sig/Ramila Route Start Time Stop Time Status Last Admin Dose Admin Morphine Sulfate (MoRPHine SULFATE INJ) 2 mg Q1H PRN IV 10/04/17 15:45 10/18/17 15:44 Ondansetron HCl (Zofran Inj) 4 mg Q6H PRN IV 10/04/17 15:45 11/03/17 15:44 Pantoprazole Sodium 40 mg/ Syringe 10 ml @ 5 mls/min DAILY IV 10/05/17 09:00 11/04/17 08:59 10/06/17 08:29 5 MLS/MIN Miscellaneous Information (Icu Protocol For Hyperglycemia) 1 ea PRN PRN N/A 10/04/17 16:45 10/06/17 16:44 Heparin Sodium/ Dextrose 500 ml @ 15 mls/hr Q24H IV 10/05/17 08:15 11/04/17 08:14 10/06/17 15:07 15 MLS/HR Acetaminophen/ Hydrocodone Bitart ([place] 5/325 Tab) 1 tab Q4H PRN PO 10/06/17 07:30 10/20/17 07:29 Acetaminophen/ Hydrocodone Bitart ([place] 5/325 Tab) 2 tab Q4H PRN PO 10/06/17 07:30 10/20/17 07:29 Ketorolac Tromethamine (Toradol Inj) 15 mg Q6H IV 10/06/17 13:30 10/09/17 07:31 10/06/17 13:48 15 MG Physical Exam Date Time Temp Pulse Resp B/P (MAP) Pulse Ox O2 Delivery O2 Flow Rate FiO2 10/06/17 15:08 36.9 74 18 130/70 (90) 91 Room Air 10/06/17 12:57 37.1 80 18 97 2.0 10/06/17 12:00 Room Air 10/06/17 11:22 37.1 80 18 145/77 (99) 97 Room Air 10/06/17 08:00 Room Air 10/06/17 07:51 36.9 73 18 115/72 (86) 97 Room Air 10/06/17 04:02 36.8 69 20 125/69 (87) 96 Room Air 10/06/17 04:00 Room Air 10/06/17 00:01 Room Air 10/05/17 23:21 36.9 73 20 114/66 (82) 97 Room Air 10/05/17 20:00 Room Air 10/05/17 19:33 37.0 80 18 120/68 (85) 99 10/05/17 18:38 36.6 80 18 121/73 (89) 99 10/05/17 16:20 Nasal Cannula 2.0 10/05/17 16:00 81 18 127/59 (81) 95 Room Air General: no distress Eyes: normal inspection, PERLL Respiratory: chest non tender, clear to auscultation, normal breath sounds, no respiratory distress, no accessory muscle use Cardiac: regular rate and rhythm, no rub or gallop, no murmur, no edema, no jvd GI/: active bowel sounds, no abd pain or tenderness, soft, non distended Extremities: normal range of motion, normal strength, non tender Neuro/Psych: alert and oriented x 3, normal mood and affect Skin: normal color, dry, debbie on abdomen well approximated and healing Laboratory Results Last 24 Hours Test 10/05/17 15:56 10/05/17 22:31 10/06/17 07:30 Activated Partial Thromboplast Time 42.5 SECONDS 58.7 SECONDS 49.4 SECONDS Partial Thromboplastin Ratio 1.6 2.3 1.9 White Blood Count 12.36 K/uL Red Blood Count 3.58 M/uL Hemoglobin 9.8 g/dL Hematocrit 30.8 % Mean Corpuscular Volume 86.0 fL Mean Corpuscular Hemoglobin 27.4 pg Mean Corpuscular Hemoglobin Concent 31.8 g/dl Platelet Count 310 K/uL Mean Platelet Volume 9.5 fL Neutrophils (%) (Auto) 82.1 % Lymphocytes (%) (Auto) 11.2 % Monocytes (%) (Auto) 5.7 % Eosinophils (%) (Auto) 0.5 % Basophils (%) (Auto) 0.1 % Neutrophils # (Auto) 10.15 K/uL Lymphocytes # (Auto) 1.38 K/uL Monocytes # (Auto) 0.71 K/uL Eosinophils # (Auto) 0.06 K/uL Basophils # (Auto) 0.01 K/uL RDW Standard Deviation 50.9 fL RDW Coefficient of Variation 16.0 % Immature Granulocyte % (Auto) 0.4 % Immature Granulocyte # (Auto) 0.05 K/uL Sodium Level 135 mmol/L Potassium Level 4.1 mmol/L Chloride Level 102 mmol/L Carbon Dioxide Level 30 mmol/L Anion Gap 3.0 mmol/L Blood Urea Nitrogen 5 mg/dl Creatinine 0.75 mg/dl Est Creatinine Clear Calc Drug Dose 57.2 ml/min Estimated GFR () 87.3 Estimated GFR (Non- 75.3 BUN/Creatinine Ratio 6.3 Random Glucose 113 mg/dl Calcium Level 8.4 mg/dl Assessment & Plan Ms. 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 Swift as patient will be following up with him outpatient. Asked his recommendation given that patient did not want to give herself Lovenox shots. He recommends Xeralto standard dosing as it has been approved by the [employer] for cancer patients. Will restart Xeralto tonight per surgery's note WASHER CARCASS Physician Supervision Note: I discussed with Lashaun Colon WASHER CARCASS and agree with findings and plan as documented in the note. 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 We discussed it with Dr. Perez her oncologist who recommended that we institute Xarelto therapy another alternative would be Coumadin however we would require overlap with this that time patient seems stable postoperatively and we will can send you with Xarelto therapy as recommended by her ivory carver. Documented By: Sekou Figueredo
[2017-10-06] MEDS ORDERED: RIVAROXABAN 20 MG TAB PO ONE (16:30)
--- NOTE | 2017-10-06 20:27 | Progress Note ---
Post ICU Progress Note Date & Time October 06, 2017 at 20:18 Vital Signs Vital Signs Past 12 Hours Date Time Temp Pulse Resp B/P (MAP) Pulse Ox O2 Delivery O2 Flow Rate FiO2 10/06/17 15:20 91 Room Air 10/06/17 15:08 36.9 74 18 130/70 (90) 91 Room Air 10/06/17 14:30 Room Air 10/06/17 12:57 37.1 80 18 97 2.0 10/06/17 12:00 Room Air 10/06/17 11:22 37.1 80 18 145/77 (99) 97 Room Air Notes Mental Status: alert / awake Nausea / Vomiting: adequately controlled Pain: adequately controlled Airway Patency, RR, SpO2: stable & adequate BP & HR: stable & adequate Patient is an 82-year-old female who was initially admitted postoperatively to the ICU after undergoing open laparoscopy with colon resection and subsequent colon to colon anastomosis. She was monitored from a hemodynamic standpoint for reinstitution of anticoagulation in the setting of recent PEs and DVT. She remained hemodynamically stable and subsequently was downgraded within 24 hours. She has required no blood products at this point. She is shown great progression. Recently, she was placed on Xarelto for PE/DVT which she will continue in the outpatient setting. She will continue to follow with her oncologist. On evaluation today, patient reports that she has been feeling much better. She has not required an extensive amount of pain medication despite undergoing a recent impressive surgery. She reports feeling well and has been ambulating 3 times a day and sitting in her chair for most of the day. She offers no complaints at this point. Consider outpatient follow up in 1 to 2 weeks with: General Surgery, Oncology, PCP Repeat imaging needed: Per admitting service Follow up cultures: None at this time. Reviewed progress notes, labs, and inpatient medication list Continue current management Additional recommendations: None at this time. Thank you for allowing us to participate in the care of this patient. At this time, critical are services will sign off on this case. Please feel free to reconsult as needed. Consults & Procedures Consultants: Cardiology, general surgery. Procedures: Operative Date October 04, 2017. 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
[2017-10-07] MEDS: KETOROLAC TROMETHAMINE 15 MG/ML VIAL IV SCH ×4 (01:27→19:30)
[2017-10-07 06:58] VITALS: BP 132/68; PULSE 68; TEMP 36.6; O2SAT 96
[2017-10-07 07:07] LABS: BASO % 0.2 %; BASO ABS # 0.02 K/uL (0-0.2); EOS % 2.3 %; EOS ABS # 0.21 K/uL (0-0.5); HEMATOCRIT 28.5 % (37-47); HEMOGLOBIN 9.2 g/dL (12.0-16.0); IG# 0.03 K/uL (0.00-0.02); LYMPH % 12.9 %; LYMPH ABS # 1.17 K/uL (1.2-3.4); MEAN CELL VOLUME 85.1 fL (80-100); MEAN CORPUSCULAR HEMOGLOBIN 27.5 pg (25-34); MEAN CORPUSCULAR HGB CONC 32.3 g/dl (32-36); MEAN PLATELET VOLUME 9.4 fL (7.4-10.4); MONO % 5.4 %; MONO ABS # 0.49 K/uL (0.11-0.59); NEUT % 78.9 %; NEUT ABS # 7.13 K/uL (1.4-6.5); PLATELET COUNT 280 K/uL (130-400); RED CELL DISTRIBUTION WIDTH CV 15.9 % (11.5-14.5); RED CELL DISTRIBUTION WIDTH SD 49.6 fL (36.4-46.3); WHITE BLOOD COUNT 9.05 K/uL (4.8-10.8)
[2017-10-07 07:38] LABS: CALCIUM 8.3 mg/dl (8.5-10.1); CREATININE 0.69 mg/dl (0.60-1.20); POTASSIUM 3.5 mmol/L (3.5-5.1)
[2017-10-07] MEDS: PANTOprazole INJ 40 MG in SYRINGE 0 ML IV SCH (09:34)
[2017-10-07] MEDS: RIVAROXABAN 20 MG TAB PO SCH (09:34)
--- NOTE | 2017-10-07 12:17 | Surgery Progress Note ---
Surgery Progress Note Date of Service October 07, 2017. Subjective Post OP Day: 3 + feeling well, + ambulating, + pain controlled, + diet (tolerating full liquids ), No complaints, No bowel movement, No flatus Objective Vital Signs: Date Time Temp Pulse Resp B/P (MAP) Pulse Ox O2 Delivery O2 Flow Rate FiO2 10/07/17 07:50 Room Air 10/07/17 06:58 36.6 68 16 132/68 (89) 96 Room Air 10/06/17 23:15 Room Air 10/06/17 23:13 36.6 77 16 133/72 (92) 97 Room Air 10/06/17 15:20 91 Room Air 10/06/17 15:08 36.9 74 18 130/70 (90) 91 Room Air 10/06/17 14:30 Room Air 10/06/17 12:57 37.1 80 18 97 2.0 Physical Exam: KARI drainage (serosanguinous, 120 cc) General Appearance: WD/WN, no apparent distress Neck: supple Respiratory/Chest: normal breath sounds, no respiratory distress Cardiovascular: regular rate, rhythm, no murmur Abdomen: normal bowel sounds, non tender, soft, + distended (mild) Incision(s): clean, dry, intact Laboratory Results: Results Past 24 Hours Test 10/07/17 06:55 Range/Units White Blood Count 9.05 4.8-10.8 K/uL Red Blood Count 3.35 4.2-5.4 M/uL Hemoglobin 9.2 12.0-16.0 g/dL Hematocrit 28.5 37-47 % Mean Corpuscular Volume 85.1 80-100 fL Mean Corpuscular Hemoglobin 27.5 25-34 pg Mean Corpuscular Hemoglobin Concent 32.3 32-36 g/dl Platelet Count 280 130-400 K/uL Mean Platelet Volume 9.4 7.4-10.4 fL Neutrophils (%) (Auto) 78.9 % Lymphocytes (%) (Auto) 12.9 % Monocytes (%) (Auto) 5.4 % Eosinophils (%) (Auto) 2.3 % Basophils (%) (Auto) 0.2 % Neutrophils # (Auto) 7.13 1.4-6.5 K/uL Lymphocytes # (Auto) 1.17 1.2-3.4 K/uL Monocytes # (Auto) 0.49 0.11-0.59 K/uL Eosinophils # (Auto) 0.21 0-0.5 K/uL Basophils # (Auto) 0.02 0-0.2 K/uL RDW Standard Deviation 49.6 36.4-46.3 fL RDW Coefficient of Variation 15.9 11.5-14.5 % Immature Granulocyte % (Auto) 0.3 % Immature Granulocyte # (Auto) 0.03 0.00-0.02 K/uL Activated Partial Thromboplast Time 35.0 21.0-31.0 SECONDS Partial Thromboplastin Ratio 1.3 Sodium Level 133 136-145 mmol/L Potassium Level 3.5 3.5-5.1 mmol/L Chloride Level 100 98-107 mmol/L Carbon Dioxide Level 27 21-32 mmol/L Anion Gap 6.0 3-11 mmol/L Blood Urea Nitrogen 6 7-18 mg/dl Creatinine 0.69 0.60-1.20 mg/dl Est Creatinine Clear Calc Drug Dose 62.2 ml/min Estimated GFR () 95.3 Estimated GFR (Non- 82.2 BUN/Creatinine Ratio 8.8 10-20 Random Glucose 93 70-99 mg/dl Calcium Level 8.3 8.5-10.1 mg/dl Assessment & Plan POD#3 splenic flexure cancer resection. Doing well. She is still not passing flatus so will keep on full liquids for now (she does not want to advance diet) . Ambulating well in the hallway. On xarelto for history of dvt.
--- NOTE | 2017-10-07 13:46 | Hospitalist Progress Note ---
Hospitalist Progress Note Date of Service October 07, 2017. (Lashaun Colon ., RISSA) Subjective Pt evaluation today including: conversation w/ patient, physical exam, chart review, lab review, review of inpatient medication list Voiding: no voiding problems Ms. Mathias is up and seated in a chair, she has been ambulating the halls today and is feeling better. She has not had a bowel movement yet and cannot yet tolerate upgrading her diet from full liquid. ROS Constitutional: no chills, aches, sweats or fever Respiratory: no sob,cough, sputum, or wheezing Cardiac: no chest pain, palpitations, edema, orthopnea or lightheadedness GI: no abdominal pain, nausea, vomiting, diarrhea or constipation : no dysuria or hesitancy Extremities: no joint pain or weakness Skin: no rash All other systems reviewed and negative (Lashaun Colon ., RISSA) Medications Medications Administered Medications (Trade) Dose Ordered Sig/Ramila Route Start Time Stop Time Status Last Admin Dose Admin Lactated Ringer's 1,000 ml @ 15 mls/hr Q24H IV 10/04/17 06:00 10/05/17 05:59 DC 10/04/17 09:19 15 MLS/HR Cefoxitin Sodium 2000 mg/Dextrose 60 ml @ 100 mls/hr ONE ONCE IV 10/04/17 10:00 10/04/17 10:35 DC 10/04/17 12:18 100 MLS/HR Bupivacaine HCl (Marcaine 0.5% MPF Inj) 30 ml STK-MED ONCE .ROUTE 10/04/17 11:37 10/04/17 11:38 DC 10/04/17 15:13 20 ML Bupivacaine Liposome (Exparel) 266 mg STK-MED ONCE .ROUTE 10/04/17 15:04 10/04/17 15:05 DC 10/04/17 15:13 266 MG Lactated Ringer's 1,000 ml @ 50 mls/hr Q20H IV 10/04/17 15:45 10/06/17 11:06 DC 10/06/17 08:29 50 MLS/HR Acetaminophen 100 ml @ 400 mls/hr Q8H PRN IV 10/04/17 15:45 10/06/17 13:01 DC 10/05/17 22:13 400 MLS/HR Pantoprazole Sodium 40 mg/ Syringe 10 ml @ 5 mls/min DAILY IV 10/05/17 09:00 10/07/17 13:37 DC 10/07/17 09:34 5 MLS/MIN Cefoxitin Sodium 2000 mg/Dextrose 60 ml @ 100 mls/hr Q6H IV 10/04/17 18:00 10/05/17 06:35 DC 10/05/17 05:42 100 MLS/HR Lactated Ringer's 1,000 ml @ 999 mls/hr Q1H1M IV 10/04/17 19:45 10/04/17 20:00 DC 10/04/17 20:13 999 MLS/HR Heparin Sodium/ Dextrose 500 ml @ 15 mls/hr Q24H IV 10/05/17 08:15 10/06/17 15:57 DC 10/06/17 15:07 15 MLS/HR Heparin Sodium (Porcine) 2000 unit/Syringe 2 ml @ 10 mls/min NOW ONCE IV 10/05/17 16:45 10/05/17 16:46 DC 10/05/17 17:06 10 MLS/MIN Ketorolac Tromethamine (Toradol Inj) 15 mg Q6H IV 10/06/17 13:30 10/09/17 07:31 10/07/17 07:53 15 MG Rivaroxaban (Xarelto Tab) 20 mg DAILY PO 10/07/17 09:00 11/06/17 08:59 10/07/17 09:34 20 MG Rivaroxaban (Xarelto Tab) 20 mg 1630 ONCE PO 10/06/17 16:30 10/06/17 16:31 DC 10/06/17 16:22 20 MG (Lashaun Colon, RISSA) Objective Vital Signs Date Time Temp Pulse Resp B/P (MAP) Pulse Ox O2 Delivery O2 Flow Rate FiO2 10/07/17 07:50 Room Air 10/07/17 06:58 36.6 68 16 132/68 (89) 96 Room Air 10/06/17 23:15 Room Air 10/06/17 23:13 36.6 77 16 133/72 (92) 97 Room Air 10/06/17 15:20 91 Room Air 10/06/17 15:08 36.9 74 18 130/70 (90) 91 Room Air 10/06/17 14:30 Room Air (Lashaun Colon, CRITICAL POWER TECHNICIAN) Physical Exam Notes: General: no distress Eyes: normal inspection, PERLL Respiratory: chest non tender, clear to auscultation, normal breath sounds, no respiratory distress, no accessory muscle use Cardiac: regular rate and rhythm, no rub or gallop, no murmur, no edema, no jvd GI/: active bowel sounds, no abd pain or tenderness, soft, non distended Extremities: normal range of motion, normal strength, non tender Neuro/Psych: alert and oriented x 3, normal mood and affect Skin: normal color, dry (Lashaun Colon ., CRITICAL POWER TECHNICIAN) Laboratory Results Last 24 Hours Test 10/07/17 06:55 White Blood Count 9.05 K/uL Red Blood Count 3.35 M/uL Hemoglobin 9.2 g/dL Hematocrit 28.5 % Mean Corpuscular Volume 85.1 fL Mean Corpuscular Hemoglobin 27.5 pg Mean Corpuscular Hemoglobin Concent 32.3 g/dl Platelet Count 280 K/uL Mean Platelet Volume 9.4 fL Neutrophils (%) (Auto) 78.9 % Lymphocytes (%) (Auto) 12.9 % Monocytes (%) (Auto) 5.4 % Eosinophils (%) (Auto) 2.3 % Basophils (%) (Auto) 0.2 % Neutrophils # (Auto) 7.13 K/uL Lymphocytes # (Auto) 1.17 K/uL Monocytes # (Auto) 0.49 K/uL Eosinophils # (Auto) 0.21 K/uL Basophils # (Auto) 0.02 K/uL RDW Standard Deviation 49.6 fL RDW Coefficient of Variation 15.9 % Immature Granulocyte % (Auto) 0.3 % Immature Granulocyte # (Auto) 0.03 K/uL Activated Partial Thromboplast Time 35.0 SECONDS Partial Thromboplastin Ratio 1.3 Sodium Level 133 mmol/L Potassium Level 3.5 mmol/L Chloride Level 100 mmol/L Carbon Dioxide Level 27 mmol/L Anion Gap 6.0 mmol/L Blood Urea Nitrogen 6 mg/dl Creatinine 0.69 mg/dl Est Creatinine Clear Calc Drug Dose 62.2 ml/min Estimated GFR () 95.3 Estimated GFR (Non- 82.2 BUN/Creatinine Ratio 8.8 Random Glucose 93 mg/dl Calcium Level 8.3 mg/dl (Lashaun Colon CRNP) Assessment and Plan Ms. 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 Swift as patient will be following up with him outpatient. Asked his recommendation given that patient did not want to give herself Lovenox shots. He recommends Xeralto standard dosing as it has been approved by the [employer] for cancer patients. - Continue Xeralto 20 mg daily po Medicine will sign off for now. Please let us know if there's anything further we can do for you. Thank you for consulting us on this patient (Lashaun Colon CRNP) CLAIMS SPECIALIST Physician Supervision Note: I discussed with Lashaun Colon CLAIMS SPECIALIST and agree with findings and plan as documented in the note. Any exceptions or clarifications are listed here: None Patient is here treated for multifocal pneumonia which failed outpatient treatment there was some discussion about doing a bronchoscopy however this is been on hold patient continues on IV antibiotics as she is fearful to return home Documented By: Sekou Figueredo (Sekou Figueredo M.D.)
[2017-10-07 15:20] VITALS: BP 118/77; PULSE 70; TEMP 36.4; O2SAT 98
[2017-10-07 22:40] VITALS: BP 148/79; PULSE 69; TEMP 36.6; O2SAT 96
[2017-10-08] MEDS: KETOROLAC TROMETHAMINE 15 MG/ML VIAL IV SCH ×4 (01:24→19:56)
[2017-10-08 06:12] LABS: PTT PATIENT 29.6 SECONDS (21.0-31.0)
[2017-10-08 07:21] VITALS: BP 135/75; PULSE 95; TEMP 36.7; O2SAT 97
[2017-10-08] MEDS: PANTOprazole SOD 40 MG TAB PO SCH (08:00)
[2017-10-08] MEDS: RIVAROXABAN 20 MG TAB PO SCH (08:00)
--- NOTE | 2017-10-08 10:39 | Surgery Progress Note ---
Surgery Progress Note Date of Service October 08, 2017. Subjective Post OP Day: 4 + feeling well, + ambulating, + bowel movement, + flatus, + pain controlled, No complaints Noted some indigestion and feeling of food coming up into her mouth last night. Better today. Two bowel movements in last 24 hours. Objective Vital Signs: Date Time Temp Pulse Resp B/P (MAP) Pulse Ox O2 Delivery O2 Flow Rate FiO2 10/08/17 07:40 Room Air 10/08/17 07:21 36.7 95 19 135/75 (95) 97 Room Air 10/07/17 23:15 Room Air 10/07/17 22:40 36.6 69 16 148/79 (102) 96 Room Air 10/07/17 15:20 36.4 70 16 118/77 (91) 98 Room Air 10/07/17 15:15 Room Air Physical Exam: KARI drainage (serosanguinous 205 cc) General Appearance: WD/WN, no apparent distress Head: normocephalic, atraumatic Respiratory/Chest: normal breath sounds, no respiratory distress Abdomen: normal bowel sounds, non tender, non distended, soft Incision(s): clean, dry, intact Extremities: no pedal edema Laboratory Results: Results Past 24 Hours Test 10/08/17 05:44 Range/Units Activated Partial Thromboplast Time 29.6 21.0-31.0 SECONDS Partial Thromboplastin Ratio 1.1 Assessment & Plan POD#4 splenic flexure cancer resection. Doing well. She has passed flatus and had two bowel movements. Will advance to low fiber diet. Did have an episode of indigestion/ reflux last night - will monitor for now. KARI drain in place. If tolerates diet, likely home tomorrow. Continue xarelto.
[2017-10-08 15:22] VITALS: BP 129/48; PULSE 92; TEMP 36.7; O2SAT 96
[2017-10-08 22:45] VITALS: BP 137/77; PULSE 84; TEMP 37.2; O2SAT 98
[2017-10-09] MEDS: KETOROLAC TROMETHAMINE 15 MG/ML VIAL IV SCH ×2 (02:00→08:38)
[2017-10-09 06:38] LABS: HEMOGLOBIN 9.3 g/dL (12.0-16.0); MEAN CELL VOLUME 83.8 fL (80-100); MEAN CORPUSCULAR HEMOGLOBIN 27.8 pg (25-34); MEAN CORPUSCULAR HGB CONC 33.2 g/dl (32-36); MEAN PLATELET VOLUME 9.1 fL (7.4-10.4); PLATELET COUNT 359 K/uL (130-400); RED CELL DISTRIBUTION WIDTH CV 15.5 % (11.5-14.5); RED CELL DISTRIBUTION WIDTH SD 47.4 fL (36.4-46.3); WHITE BLOOD COUNT 8.35 K/uL (4.8-10.8)
[2017-10-09 06:52] LABS: PTT PATIENT 29.1 SECONDS (21.0-31.0)
[2017-10-09 07:05] VITALS: BP 130/77; PULSE 86; TEMP 36.8; O2SAT 96
--- NOTE | 2017-10-09 08:30 | Surgery Progress Note ---
Surgery Progress Note Date of Service October 09, 2017. Subjective Post OP Day: 5 + feeling well, + ambulating, + bowel movement, + flatus, + pain controlled, + diet (Tolerating low-fiber diet), No nausea, No vomiting Patient does report some burping after eating when she was advanced to a low- fiber diet however she reports this is improving. Objective Vital Signs: Date Time Temp Pulse Resp B/P (MAP) Pulse Ox O2 Delivery O2 Flow Rate FiO2 10/09/17 07:05 36.8 86 16 130/77 (94) 96 Room Air 10/08/17 23:25 Room Air 10/08/17 22:45 37.2 84 16 137/77 (97) 98 Room Air 10/08/17 15:22 36.7 92 16 129/48 (75) 96 Room Air 10/08/17 15:15 Room Air Physical Exam: KARI drainage (120/30ml, serosang) General Appearance: WD/WN, no apparent distress Head: normocephalic, atraumatic Respiratory/Chest: no respiratory distress, no accessory muscle use Abdomen: non tender, non distended, soft, no organomegaly Incision(s): clean, dry, intact Laboratory Results: Results Past 24 Hours Test 10/09/17 06:29 Range/Units White Blood Count 8.35 4.8-10.8 K/uL Red Blood Count 3.34 4.2-5.4 M/uL Hemoglobin 9.3 12.0-16.0 g/dL Hematocrit 28.0 37-47 % Mean Corpuscular Volume 83.8 80-100 fL Mean Corpuscular Hemoglobin 27.8 25-34 pg Mean Corpuscular Hemoglobin Concent 33.2 32-36 g/dl RDW Standard Deviation 47.4 36.4-46.3 fL RDW Coefficient of Variation 15.5 11.5-14.5 % Platelet Count 359 130-400 K/uL Mean Platelet Volume 9.1 7.4-10.4 fL Activated Partial Thromboplast Time 29.1 21.0-31.0 SECONDS Partial Thromboplastin Ratio 1.1 Assessment & Plan POD #5 splenic flexure colectomy for cancer resection Doing well, abdomen soft, non-distended, no pain at this time. Tolerating low -fiber diet, No N/V. +flatus, +BM. Keep KARI for now, likely pull prior to d/c. Continue to ambulate as tolerated. Probable discharge later today if she continues to do well. Will discuss findings with Dr. To, please contact with questions or concerns.
[2017-10-09] MEDS: RIVAROXABAN 20 MG TAB PO SCH (08:38)
[2017-10-09] MEDS: PANTOprazole SOD 40 MG TAB PO SCH (08:38)
[2017-10-09 13:12] VITALS: BP 130/77; PULSE 86; TEMP 36.8; O2SAT 96
--- NOTE | 2017-10-18 16:47 | DISCHARGE SUMMARY ---
PRIMARY DISCHARGE DIAGNOSES: 1. 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 2. Subacute bilateral pulmonary emboli and left lower extremity deep venous thrombosis. 3. Chronic anemia. CONSULTATIONS: 1. [facility] Firmware Software Verification Engineer for initial postoperative care. 2. [facility] hospitalist service to assist in medical management. PROCEDURE: Diagnostic laparoscopy with partial colon resection, en bloc wedge gastrectomy and primary colocolonic anastomosis. HOSPITAL COURSE: The patient is an 82-year-old female with colon mass of splenic flexure. She was brought in through same day and taken to the operating room for diagnostic laparoscopy. The mass was invading the greater curve of the stomach. The procedure was converted to open for colon resection with en bloc wedge gastrectomy. The procedure was well tolerated. Given her recent PE, she was transferred to ICU for initial management. She has chronic anemia. Her H and H were monitored for the initial 12 hours postoperatively and remained stable. She was then started on a heparin drip for treatment of the subacute PE. Her H and H remained stable, equilibrated at 9.3 and 28. She was able to advance from clear to full liquids on postoperative day 2. She was taking primarily Tylenol for analgesia. She was transferred out of the ICU. The hospitalist service was consulted routinely. Her heparin was discontinued. She was restarted on Xarelto on postoperative day 2. She was tolerating liquid diet but not had any returning bowel function on postoperative day #3. On day 4, she began having bowel movements. She was able to tolerate advancing diet. On postoperative day 5, she was tolerating low fiber diet. KARI drainage had been decreasing, and the drain was removed. She was stable for discharge home. DISCHARGE INSTRUCTIONS: Discharged home. Follow up with Dr. To in approximately 1 week. She will have outpatient oncology followup. DISCHARGE MEDICATIONS: [place] 1 tablet every 4 hours as needed for pain. Resume Xarelto 20 mg daily and can continue Prilosec 40 mg daily and glucosamine supplement. PATHOLOGY: An 8.5 cm mass of the splenic flexure was poorly differentiated adenocarcinoma that directly invaded the adjacent stomach. Metastatic disease was present in 4 of 20 lymph nodes (4/20). MTDD
[2017-10-19] MEDS ORDERED: OMEP20CA9 PO (10:03)
[2017-10-19] MEDS ORDERED: RIVA1TAB4 PO (10:03)
--- NOTE | 2017-10-19 13:25 | EDITING REQUIRED CODING QUERY ---
CODING QUERY To promote full compliance with coding requirements relating to patient care, provider participation is requested in all cases of lining cementer uncertainty. Please assist us with the question(s) below: Coding Question(s): The Progress Note on 10/07/17 documents that the patient is treated for multifocal pneumonia which failed outpatient treatment and that the patient continues on IV antibiotics. There is no other documentation in the record. Please clarify below. ( xx ) Patient was treated for multifocal pneumonia during this admission ( ) No Pneumonia was treated during this admission Physician's Response(s): Thank you Em Delgado Principal Diagnosis: "_that condition established after study, to be chiefly responsible for occasioning the admission of the patient to the hospital for care." Co-Existing Principal Diagnosis: "_when two or more diagnoses equally meet the criteria for principal diagnosis as determined by the circumstances of admission, diagnostic work up, and/or therapy provided, and the Alphabetic Index, Tabular List, or another coding guideline does not provide sequencing direction, any one of the diagnoses may be sequenced first." "When the physician has documented what appears to be a current diagnosis in the body of the record, but has not included the diagnosis in the final diagnostic statement, the physician should be asked whether the diagnosis should be added." ([facility] 2 QTR90. p3-4)
--- NOTE | 2017-10-19 13:31 | EDITING REQUIRED CODING QUERY ---
CODING QUERY To promote full compliance with coding requirements relating to patient care, provider participation is requested in all cases of director of field coordination uncertainty. Please assist us with the question(s) below: Coding Question(s): There is documentation in the record of Pulmonary Embolism and Left Leg DVT in the record and treatment with Heparin/Xarelto. The PE and DVT are documented as History, Recent and Sub-acute. Please, clarify below, in your clinical opinion. ( ) Acute Pulmonary Embolism and Left Leg DVT were treated during this admission ( ) Chronic Pulmonary Embolism and Left Leg DVT were treated during this admission ( x) History of recent Pulmonary Embolism and Left Leg DVT were treated during this admission Physician's Response(s): Thank you Em Delgado Principal Diagnosis: "_that condition established after study, to be chiefly responsible for occasioning the admission of the patient to the hospital for care." Co-Existing Principal Diagnosis: "_when two or more diagnoses equally meet the criteria for principal diagnosis as determined by the circumstances of admission, diagnostic work up, and/or therapy provided, and the Alphabetic Index, Tabular List, or another coding guideline does not provide sequencing direction, any one of the diagnoses may be sequenced first." "When the physician has documented what appears to be a current diagnosis in the body of the record, but has not included the diagnosis in the final diagnostic statement, the physician should be asked whether the diagnosis should be added." ([facility] 2 QTR90. p3-4)
== END 2017-10-09 13:48 | disposition home or self-care (01) | DRG 326 ==
LOC: C.ACU 08:28 → C.MSICU 09:30 → UNDOADMIN 09:30 → C.MSICU 10:03 → ENRESERV 16:45 → C.2T 10-05 18:23 → EDBEDREQ 10-06 12:07 → ENRESERV 10-06 12:12 → C.MSN 10-06 14:01
PROVIDERS: ADMIT Surgery; ATTEND Surgery
PROC: 0DTG0ZZ Resection of Left Large Intestine, Open Approach (ICD-10-PCS; principal; 2017-10-04 10:50)
PROC: 0DB60ZX Excision of Stomach, Open Approach, Diagnostic (ICD-10-PCS; principal; 2017-10-04 10:50)
DX: C18.5 Malignant neoplasm of splenic flexure (principal); J18.9 Pneumonia, unspecified organism; C79.89 Secondary malignant neoplasm of other specified sites; C78.89 Secondary malignant neoplasm of other digestive organs; Z53.31 Laparoscopic surgical procedure converted to open procedure; D64.9 Anemia, unspecified; Z51.81 Encounter for therapeutic drug level monitoring; Z79.899 Other long term (current) drug therapy; Z86.711 Personal history of pulmonary embolism; Z86.718 Personal history of other venous thrombosis and embolism; Z95.828 Presence of other vascular implants and grafts; Z83.3 Family history of diabetes mellitus; Z82.49 Family history of ischemic heart disease and other diseases of the circulatory system

== ENCOUNTER → 2017-10-26 | Outpatient (CLI) | payer BC ==
[~2017-10-26] MED LIST changes: -LACTATED RINGER'S 1000ML 1,000 ML IV SCH; +OMEP20CA9 PO; -PRLSR20 PO
[2017-10-26 16:27] LABS: BASO % 0.8 %; BASO ABS # 0.05 K/uL (0-0.2); HEMATOCRIT 27.8 % (37-47); IG# 0.01 K/uL (0.00-0.02); LYMPH % 24.8 %; LYMPH ABS # 1.65 K/uL (1.2-3.4); MEAN CELL VOLUME 88.3 fL (80-100); MEAN CORPUSCULAR HEMOGLOBIN 28.6 pg (25-34); MEAN CORPUSCULAR HGB CONC 32.4 g/dl (32-36); MEAN PLATELET VOLUME 9.8 fL (7.4-10.4); MONO % 6.5 %; MONO ABS # 0.43 K/uL (0.11-0.59); NEUT % 64.7 %; NEUT ABS # 4.31 K/uL (1.4-6.5); PLATELET COUNT 314 K/uL (130-400); RED CELL DISTRIBUTION WIDTH CV 18.2 % (11.5-14.5); WHITE BLOOD COUNT 6.65 K/uL (4.8-10.8)
[2017-10-26 16:46] LABS: BLOOD UREA NITROGEN 8 mg/dl (7-18); CREATININE 1.01 mg/dl (0.60-1.20); GLUCOSE 105 mg/dl (70-99); POTASSIUM 4.1 mmol/L (3.5-5.1); SODIUM 137 mmol/L (136-145)
[2017-10-26 16:47] LABS: ALKALINE PHOSPHATASE 66 U/L (45-117); ALT/SGPT 18 U/L (12-78); AST/SGOT 23 U/L (15-37); CALCIUM 8.5 mg/dl (8.5-10.1); CARBON DIOXIDE 27 mmol/L (21-32); TOTAL PROTEIN 6.9 gm/dl (6.4-8.2)
== END | disposition home or self-care (01) ==
LOC: C.LABSPEC 15:51
PROVIDERS: ATTEND Internal Medicine Hematology & Oncology
DX: C18.5 Malignant neoplasm of splenic flexure (principal)

== ENCOUNTER → 2018-01-01 | Outpatient (CLI) | payer BC ==
[2018-01-01 10:07] LABS: BASO % 0.5 %; BASO ABS # 0.04 K/uL (0-0.2); EOS % 2.3 %; EOS ABS # 0.19 K/uL (0-0.5); HEMATOCRIT 27.8 % (37-47); HEMOGLOBIN 8.4 g/dL (12.0-16.0); IG# 0.09 K/uL (0.00-0.02); LYMPH % 20.9 %; LYMPH ABS # 1.76 K/uL (1.2-3.4); MEAN CELL VOLUME 85.3 fL (80-100); MEAN CORPUSCULAR HEMOGLOBIN 25.8 pg (25-34); MEAN CORPUSCULAR HGB CONC 30.2 g/dl (32-36); MEAN PLATELET VOLUME 10.7 fL (7.4-10.4); MONO % 11.1 %; MONO ABS # 0.94 K/uL (0.11-0.59); NEUT % 64.1 %; NEUT ABS # 5.42 K/uL (1.4-6.5); PLATELET COUNT 165 K/uL (130-400); RED CELL DISTRIBUTION WIDTH CV 19.4 % (11.5-14.5); RED CELL DISTRIBUTION WIDTH SD 58.5 fL (36.4-46.3); WHITE BLOOD COUNT 8.44 K/uL (4.8-10.8)
[2018-01-01 10:32] LABS: ALBUMIN 3.3 gm/dl (3.4-5.0); ALKALINE PHOSPHATASE 108 U/L (45-117); ALT/SGPT 19 U/L (12-78); AST/SGOT 22 U/L (15-37); BLOOD UREA NITROGEN 11 mg/dl (7-18); CARBON DIOXIDE 27 mmol/L (21-32); CREATININE 0.77 mg/dl (0.60-1.20); GLUCOSE 91 mg/dl (70-99); POTASSIUM 4.2 mmol/L (3.5-5.1); SODIUM 137 mmol/L (136-145); TOTAL PROTEIN 6.8 gm/dl (6.4-8.2)
== END | disposition home or self-care (01) ==
LOC: C.LABSPEC 09:56
PROVIDERS: ATTEND Internal Medicine Hematology & Oncology
DX: C18.5 Malignant neoplasm of splenic flexure (principal)

== ENCOUNTER → 2018-01-15 | Outpatient (CLI) | payer BC ==
[~2018-01-15] MED LIST changes: +RIVA1TAB4 PO
[2018-01-15 10:00] LABS: BASO % 0.4 %; BASO ABS # 0.05 K/uL (0-0.2); EOS % 1.4 %; EOS ABS # 0.17 K/uL (0-0.5); HEMATOCRIT 25.4 % (37-47); HEMOGLOBIN 7.8 g/dL (12.0-16.0); LYMPH % 14.3 %; LYMPH ABS # 1.77 K/uL (1.2-3.4); MEAN CORPUSCULAR HEMOGLOBIN 25.5 pg (25-34); MEAN CORPUSCULAR HGB CONC 30.7 g/dl (32-36); MONO % 8.1 %; NEUT ABS # 9.32 K/uL (1.4-6.5); PLATELET COUNT 123 K/uL (130-400); RED CELL DISTRIBUTION WIDTH CV 19.3 % (11.5-14.5); RED CELL DISTRIBUTION WIDTH SD 56.7 fL (36.4-46.3); WHITE BLOOD COUNT 12.41 K/uL (4.8-10.8)
[2018-01-15 10:20] LABS: ALBUMIN 3.3 gm/dl (3.4-5.0); ALT/SGPT 20 U/L (12-78); AST/SGOT 25 U/L (15-37); BLOOD UREA NITROGEN 4 mg/dl (7-18); CALCIUM 8.4 mg/dl (8.5-10.1); CARBON DIOXIDE 27 mmol/L (21-32); CREATININE 0.73 mg/dl (0.60-1.20); GLUCOSE 95 mg/dl (70-99); POTASSIUM 3.9 mmol/L (3.5-5.1); SODIUM 137 mmol/L (136-145)
[2018-01-15 10:25] LABS: ALKALINE PHOSPHATASE 149 U/L (45-117); TOTAL PROTEIN 6.4 gm/dl (6.4-8.2)
== END | disposition home or self-care (01) ==
LOC: C.LABSPEC 09:29
PROVIDERS: ATTEND Internal Medicine Hematology & Oncology
DX: C18.5 Malignant neoplasm of splenic flexure (principal)

== ENCOUNTER → 2018-01-16 | Outpatient (CLI) | payer BC | END | disposition home or self-care (01) | LOC: C.LABSPEC 09:22 | PROVIDERS: ATTEND Nurse Practitioner Family | DX: C18.5 Malignant neoplasm of splenic flexure (principal) ==

== ENCOUNTER → 2018-01-29 | Outpatient (CLI) | payer BC ==
[~2018-01-29] MED LIST changes: -OMEP20CA9 PO
[2018-01-29 09:23] LABS: HEMATOCRIT 30.8 % (37-47); HEMOGLOBIN 9.6 g/dL (12.0-16.0); MEAN CORPUSCULAR HEMOGLOBIN 27.1 pg (25-34); MEAN CORPUSCULAR HGB CONC 31.2 g/dl (32-36); RED CELL DISTRIBUTION WIDTH CV 21.7 % (11.5-14.5); RED CELL DISTRIBUTION WIDTH SD 59.6 fL (36.4-46.3); WHITE BLOOD COUNT 8.47 K/uL (4.8-10.8)
[2018-01-29 09:44] LABS: ALBUMIN 3.3 gm/dl (3.4-5.0); ALKALINE PHOSPHATASE 150 U/L (45-117); ALT/SGPT 25 U/L (12-78); AST/SGOT 29 U/L (15-37); BLOOD UREA NITROGEN 4 mg/dl (7-18); CALCIUM 8.5 mg/dl (8.5-10.1); CARBON DIOXIDE 25 mmol/L (21-32); GLUCOSE 96 mg/dl (70-99); SODIUM 138 mmol/L (136-145); TOTAL PROTEIN 6.3 gm/dl (6.4-8.2)
[2018-01-29 10:02] LABS: BASO % 0.5 %; BASO ABS # 0.04 K/uL (0-0.2); EOS % 1.2 %; IG# 0.12 K/uL (0.00-0.02); LYMPH % 17.4 %; LYMPH ABS # 1.47 K/uL (1.2-3.4); MEAN PLATELET VOLUME 10.2 fL (7.4-10.4); MONO % 11.5 %; MONO ABS # 0.97 K/uL (0.11-0.59); NEUT ABS # 5.77 K/uL (1.4-6.5); PLATELET COUNT 75 K/uL (130-400)
== END | disposition home or self-care (01) ==
LOC: C.LABSPEC 09:14
PROVIDERS: ATTEND Internal Medicine Hematology & Oncology
DX: C18.5 Malignant neoplasm of splenic flexure (principal)

== ENCOUNTER 2019-04-10 17:07 | Inpatient (IN) ==
[2019-04-10 18:22] LABS: Basophils # (auto) 0.04 K/uL (0-0.2); Basophils % (auto) 0.6 %; Eosinophils # (auto) 0.46 K/uL (0-0.5); Eosinophils % (auto) 6.5 %; Hematocrit (blood only) 25.9 % (37-47); Hemoglobin 8.6 g/dL (12.0-16.0); Immature Granulocytes # (auto) 0.02 K/uL (0.00-0.02); Immature Granulocytes % (auto) 0.3 %; Lymphocytes # (auto) 1.18 K/uL (1.2-3.4); Lymphocytes % (auto) 16.7 %; Mean Corpuscular Hemoglobin 31.5 pg (25-34); Mean Corpuscular Hgb Conc 33.2 g/dL (32-36); Mean Corpuscular Volume 94.9 fL (80-100); Mean Platelet Volume 9.6 fL (7.4-10.4); Monocytes # (auto) 0.58 K/uL (0.11-0.59); Monocytes % (auto) 8.2 %; Neutrophils # (auto) 4.77 K/uL (1.4-6.5); Neutrophils % (auto) 67.7 %; Platelet Count 252 K/uL (130-400); RDW Coefficient of Variation 15.6 % (11.5-14.5); RDW Standard Deviation 54.2 fL (36.4-46.3); Red Blood Count 2.73 M/uL (4.2-5.4); White Blood Count 7.05 K/uL (4.8-10.8)
[2019-04-10 18:27] LABS: Base Excess VBG 0.2 mEq/L; Oxygen Saturation VBG 72.4 %; pH VBG 7.41 (7.36-7.41)
[2019-04-10] MEDS ORDERED: Heparin IV Standard *NO* Bolus IV ONE (18:33)
[2019-04-10 18:35] LABS: INR 1.1 (0.9-1.1); Partial Thromboplastin Ratio 1.1; Partial Thromboplastin Time 30.2 Seconds (21.0-31.0); Prothrombin Time 10.9 Seconds (9.0-12.0)
[2019-04-10 18:40] LABS: Alanine Aminotransferase 16 U/L (12-78); Albumin Level 3.1 gm/dl (3.4-5.0); Aspartate Aminotransferase 34 U/L (15-37); BUN Creatinine Ratio 6.9 (10-20); Bilirubin Direct < 0.1 mg/dl (0-0.2); Blood Urea Nitrogen 4 mg/dl (7-18); Calcium 8.8 mg/dl (8.5-10.1); Carbon Dioxide 25 mmol/L (21-32); Chloride 96 mmol/L (98-107); Creatinine Clr Calc Pharmacy 58.5 ml/min; Est GFR (African American) 96.3; Est GFR (Non-African American) 83.1; Glucose 95 mg/dl (70-99); Magnesium 2.1 mg/dl (1.8-2.4); Potassium 3.6 mmol/L (3.5-5.1); Sodium 128 mmol/L (136-145)
[2019-04-10 18:45] LABS: Alkaline Phosphatase 82 U/L (45-117); Bilirubin,Total 0.4 mg/dl (0.2-1); Total Protein 6.5 gm/dl (6.4-8.2); Troponin I < 0.015 ng/ml (0-0.045)
[2019-04-10] MEDS ORDERED: PANTOprazole 80 MG in DEXTROSE 5% 100 ML IV ONE (18:45)
[2019-04-10] MEDS: PANTOprazole 40 MG in DEXTROSE 5% 100 ML IV SCH (20:09)
[2019-04-10] MEDS: HEPARIN SODIUM/DEXTROSE 25,000 UNITS/500 ML BAG IV SCH (20:12)
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
[2019-04-10] MEDS ORDERED: DOCUSATE SODIUM 100 MG CAP PO PRN (21:34)
[2019-04-10 22:07] LABS: Reticulocyte % 2.7 % (0.5-2.0); Reticulocytes # 0.07 10^6/uL (0.02-0.10)
[2019-04-10 22:25] LABS: Ferritin 235.8 ng/ml (8-388)
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
[2019-04-11] MEDS: PANTOprazole 40 MG in DEXTROSE 5% 100 ML IV SCH ×3 (00:45→10:46)
[2019-04-11 02:21] LABS: Basophils # (auto) 0.05 K/uL (0-0.2); Basophils % (auto) 0.8 %; Eosinophils # (auto) 0.68 K/uL (0-0.5); Eosinophils % (auto) 10.9 %; Hematocrit (blood only) 24.9 % (37-47); Hemoglobin 8.2 g/dL (12.0-16.0); Immature Granulocytes # (auto) 0.03 K/uL (0.00-0.02); Immature Granulocytes % (auto) 0.5 %; Lymphocytes # (auto) 1.31 K/uL (1.2-3.4); Mean Corpuscular Hemoglobin 30.9 pg (25-34); Mean Corpuscular Hgb Conc 32.9 g/dL (32-36); Mean Platelet Volume 9.6 fL (7.4-10.4); Monocytes # (auto) 0.54 K/uL (0.11-0.59); Monocytes % (auto) 8.7 %; Neutrophils # (auto) 3.63 K/uL (1.4-6.5); Neutrophils % (auto) 58.1 %; Platelet Count 204 K/uL (130-400); RDW Coefficient of Variation 15.6 % (11.5-14.5); RDW Standard Deviation 53.6 fL (36.4-46.3); Red Blood Count 2.65 M/uL (4.2-5.4); White Blood Count 6.24 K/uL (4.8-10.8)
[2019-04-11 02:30] LABS: Partial Thromboplastin Ratio 0.9; Partial Thromboplastin Time 25.6 Seconds (21.0-31.0)
[2019-04-11 02:37] LABS: BUN Creatinine Ratio 6.8 (10-20); Calcium 8.5 mg/dl (8.5-10.1); Creatinine Clr Calc Pharmacy 59.5 ml/min; Est GFR (African American) 96.8; Est GFR (Non-African American) 83.5; Potassium 3.5 mmol/L (3.5-5.1)
[2019-04-11] MEDS ORDERED: HEPARIN IV BOLUS 5,000 UNITS in SYRINGE 0 ML IV ONE ×2 (03:30→12:00)
[2019-04-11] MEDS ORDERED: NON-FORMULARY MEDICATION (Glucosam-Chond-Hyalu-Cf Borate [Move Free Joint Health] 1 TAB) PO SCH (09:00)
[2019-04-11] MEDS ORDERED: POLYETHYLENE (MIRALAX) 17 GM PACK PO SCH (09:00)
[2019-04-11 09:28] LABS: Hematocrit (blood only) 30.5 % (37-47); Hemoglobin 10.2 g/dL (12.0-16.0); Mean Corpuscular Hemoglobin 31.9 pg (25-34); Mean Corpuscular Hgb Conc 33.4 g/dL (32-36); Mean Corpuscular Volume 95.3 fL (80-100); Mean Platelet Volume 9.9 fL (7.4-10.4); Platelet Count 350 K/uL (130-400); RDW Coefficient of Variation 15.4 % (11.5-14.5); RDW Standard Deviation 53.7 fL (36.4-46.3); White Blood Count 8.15 K/uL (4.8-10.8)
[2019-04-11 09:29] LABS: Basophils # (auto) 0.07 K/uL (0-0.2); Basophils % (auto) 0.9 %; Eosinophils # (auto) 0.73 K/uL (0-0.5); Giant Platelets 1+; Immature Granulocytes # (auto) 0.01 K/uL (0.00-0.02); Immature Granulocytes % (auto) 0.1 %; Lymphocytes # (auto) 1.37 K/uL (1.2-3.4); Lymphocytes % (auto) 16.8 %; Monocytes # (auto) 0.54 K/uL (0.11-0.59); Monocytes % (auto) 6.6 %; Neutrophils # (auto) 5.43 K/uL (1.4-6.5); Neutrophils % (auto) 66.6 %
[2019-04-11] MEDS: FERROUS SULFATE 325 MG TAB PO SCH (10:26)
--- NOTE | 2019-04-11 10:50 | Hospitalist Progress Note ---
Date of Service April 11, 2019 Assessment & Plan (1) Bilateral pulmonary embolism: Patient is an 84 yo woman with a PMHx of adenocarcinoma of the colon and massive PE in 2018 on Xarelto who was sent to the ED by her oncologist for L sided pulmonary emboli visualized on routine Chest CT for surveillance 5 previous colon cancer ED Course: On arrival patient was found to be anemic with a hgb of 8.6 (down from 13.1 in 01/2019). Hemoccult stool + on admission and on outpatient stool cards from 03/29. Despite anemia with potential GI bleed, patient was given a bolus of IV heparin followed by a heparin drip for the pulmonary emboli. Protonix drip was started. 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 Pulmonary Emboli-asymptomatic, hemodynamically stable. Not hypoxic, mild tachycardia which is now improved and likely more due to anemia -involving segmental and subsegmental branches of the left upper lobe - Patient had massive PE in 2018 and is anticoagulated on Xarelto; INR 1.1 on admission - likely secondary to new cancerous disease (hypercoagulable state) - Discussed case with radiologist, who confirmed that emboli are acute rather than chronic (from massive PE in 2018) -Continue heparin drip for now -Discontinue Xarelto -Appreciate hematology/oncology consultation-plan will be to convert to Coumadin once per all procedures and GI bleeding resolved Adenocarcinoma of Colon/pancreatic masses - Originally diagnosed in September 2017 s/p resection and chemotherapy (last infusion Apr 2018) - colonoscopy in December 2018 showed no recurrence - Report of Abdomino pelvic CT on admission: Significant interval progression of disease with multiple upper abdominal sites of metastases, which may represent parenchymal metastases to the pancreas and stomach versus peritoneal implants versus lymphadenopathy. This predominantly affects the pancreas and peripancreatic regions as well as along the serosa of the splenic flexure and serosa of the stomach in multiple locations. Notably, the largest pancreatic or peripancreatic lesions directly erodes the gastric antrum. -Concern for new primary given atypical appearance for metastatic colon cancer With masses in and around the pancreas invading into the stomach-consult GI EGD showed mass in the stomach and the duodenum, biopsies taken today Await pathology results -Appreciate oncology consultation Anemia with positive hemoccult stools/GI bleed/acute blood loss anemia - hgb 8.6 on admission, down from 13.1 in 01/2019 -Repeat hemoglobin all the way up to 10.2, but then likely lab error-repeat now 9.2 - blood consent reviewed with patient and signed; type and screen ordered - iron level low at 31 on 03/25/19; on IV and oral supplementation as an outpatient prior to admission - etiology could be secondary to iron deficiency as per outpatient workup, secondary to blood loss due to possible GI bleed, production issue, or multifactorial - iron studies ordered with reticulocyte count (to assess bone marrow production) -Continue IV Protonix but switch to 40 mg twice daily -EGD with tumor in the stomach and duodenum as above likely source of bleeding -Transfuse as needed Dispo: PCU/Tele DVT ppx: on heparin drip Diet: NPO Code: full (2) Colon adenocarcinoma: (3) Anemia: Subjective Pt denies chest pain or SOB, denies abd pain. Has black stools but not diarrhea, is in fact constipated. Discussed the case with gastroenterology Review of Systems Review of Systems: All systems reviewed & are unremarkable except as noted in HPI & below Physical Exam Constitutional: WD/WN, vitals as above Eyes: PERRL, conjunctivae normal, anicteric sclerae ENMT: external ear and nose normal, oropharynx normal Neck: trachea midline, no thyromegaly Respiratory: normal respiratory effort, lungs clear to auscultation Cardiovascular: RRR, no murmur, no edema Gastrointestinal (Abdomen): normal bowel sounds, soft, nontender, no hepatosplenomegaly Musculoskeletal: Extremities: extremities normal to inspection; no cyanosis and no clubbing Skin: no rashes, warm and dry Neurologic: moves all extremities and awake; no focal motor deficits Psychiatric: A+Ox3, euthymic affect Results & Data Vital Signs (Past 12 Hours) Vital Signs Temp Pulse Resp BP Pulse Ox 04/11/19 07:30 36.6 C 72 16 127/72 99 04/11/19 03:02 36.7 C 69 17 126/70 100 04/10/19 23:18 36.5 C 71 18 121/72 99 Laboratory Results Labs reviewed PG Care Time/CCT Total # of Minutes Spent Total Time Spent with Patient: Total time spent is greater than 50% in coordination of care (as documented) at patient's floor/unit and/or counseling patient:
[2019-04-11 12:09] LABS: Hematocrit (blood only) 28.3 % (37-47); Hemoglobin 9.3 g/dL (12.0-16.0); Mean Corpuscular Hemoglobin 31.3 pg (25-34); Mean Corpuscular Hgb Conc 32.9 g/dL (32-36); Mean Corpuscular Volume 95.3 fL (80-100); Mean Platelet Volume 9.9 fL (7.4-10.4); Platelet Count 260 K/uL (130-400); RDW Coefficient of Variation 15.6 % (11.5-14.5); Red Blood Count 2.97 M/uL (4.2-5.4)
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
[2019-04-11] MEDS ORDERED: LIDOCAINE HCL 2% 2 ML VIAL/AMP(20MG/ML) INFIL ONE (15:10)
[2019-04-11] MEDS ORDERED: PROPOFOL IV EMULSION 10 MG/ML 20 ML VIAL IV ONE (15:10)
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
[2019-04-11] MEDS ORDERED: ePHEDrine sulfate 50 MG/ML AMP IV PRN (15:22)
[2019-04-11] MEDS ORDERED: ATROPINE SULFATE 0.1 MG/ML 10ML SYR IV PRN (15:22)
[2019-04-11] MEDS ORDERED: SODIUM CHLORIDE 0.9% 1000ML 1,000 ML IV SCH (15:30)
--- NOTE | 2019-04-11 16:07 | GI REPORT ---
Patient Name: Ruth Cook Procedure Date: 04/11/2019 3:12 PM Date of : 1935 Admit Type: Inpatient Age: 84 Gender: Female Attending MD: Marcos Sarkar MD Procedure: Upper GI endoscopy Providers: Marcos Sarkar MD Referring MD: Marybeth Bautista Md Indications: Acute post hemorrhagic anemia, Abnormal CT of the GI tract Medicines: Propofol total dose 200 mg IV, Ondansetron 4 mg IV, Lidocaine 60 mg IV Complications: No immediate complications. Estimated Blood Loss: Estimated blood loss was minimal. Procedure: Pre-Anesthesia Assessment: - Prior to the procedure, a History and Physical was performed, and patient medications, allergies and sensitivities were reviewed. The patient's tolerance of previous anesthesia was reviewed. - The risks and benefits of the procedure and the sedation options and risks were discussed with the patient. All questions were answered and informed consent was obtained. After obtaining informed consent, the endoscope was passed under direct vision. Throughout the procedure, the patient's blood pressure, pulse, and oxygen saturations were monitored continuously. The Endoscope was introduced through the mouth, and advanced to the second part of duodenum. The upper GI endoscopy was accomplished without difficulty. The patient tolerated the procedure well. Findings: The Z-line was regular and was found 40 cm from the incisors. The examined esophagus was normal. A medium-sized fungating mass with stigmata of recent bleeding was found in the duodenal bulb. Biopsies were taken with a cold forceps for histology. Estimated blood loss was minimal. A large, infiltrative mass with oozing bleeding and stigmata of recent bleeding was found in the gastric body. Biopsies were taken with a cold forceps for histology. Impression: - Z-line regular, 40 cm from the incisors. - Normal esophagus. 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 Biopsied. Recommendation: - [facility] care. - Full liquid diet today. Marcos Sarkar M.D. Marcos Sarkar MD 04/11/2019 4:06:58 PM This report has been signed electronically. Note Initiated On: 04/11/2019 3:12 PM Number of Addenda: 0 I attest to the content of the Intraoperative Record and orders documented therein, exceptions below {[id number]}
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
--- NOTE | 2019-04-11 16:26 | Progress Note ---
DATE: 04/11/2019 POSTPROCEDURE NOTE The patient underwent an upper endoscopy for evaluation of her anemia and abnormal CT scan. The patient had a normal esophagus, but in the stomach, there was a nodular infiltrating lesion in the upper stomach that had some stigmata of bleeding. This was biopsied. In the duodenal bulb and the posterior superior wall, there was also an infiltrating mass that was also very friable and bled easily. This was also biopsied. The second portion of the duodenum was entered and was normal. IMPRESSION: The patient has 2 lesions in the stomach and duodenum that appeared to be highly likely malignant. It is unclear whether these are primary lesions or metastatic lesions. I ordered a CEA and a CA 19-9 and we will await the results of the biopsies before further suggestions will be offered.
[2019-04-11] MEDS: HEPARIN SODIUM/DEXTROSE 25,000 UNITS/500 ML BAG IV SCH (16:34)
[2019-04-11 18:54] LABS: Partial Thromboplastin Ratio > 5.1
[2019-04-11 18:57] LABS: Partial Thromboplastin Time > 139.0 Seconds (21.0-31.0)
[2019-04-11 20:01] LABS: Partial Thromboplastin Ratio > 5.1
[2019-04-11 20:02] LABS: Partial Thromboplastin Time > 139.0 Seconds (21.0-31.0)
[2019-04-11] MEDS ORDERED: PANTOprazole 40 MG in SYRINGE 0 ML IV SCH (21:00)
[2019-04-11 21:18] LABS: Partial Thromboplastin Ratio > 5.1
[2019-04-11 21:20] LABS: Partial Thromboplastin Time > 139.0 Seconds (21.0-31.0)
[2019-04-11 22:26] LABS: Partial Thromboplastin Ratio > 5.1
[2019-04-11 22:29] LABS: Partial Thromboplastin Time > 139.0 Seconds (21.0-31.0)
[2019-04-11 23:06] LABS: Partial Thromboplastin Ratio > 5.1
[2019-04-11 23:18] LABS: Partial Thromboplastin Time > 139.0 Seconds (21.0-31.0)
[2019-04-11 23:58] LABS: Partial Thromboplastin Time 134.8 Seconds (21.0-31.0)
[2019-04-12 00:53] LABS: Partial Thromboplastin Ratio 3.5
[2019-04-12 00:56] LABS: Partial Thromboplastin Time 93.9 Seconds (21.0-31.0)
[2019-04-12 06:19] LABS: Basophils # (auto) 0.05 K/uL (0-0.2); Basophils % (auto) 0.6 %; Eosinophils # (auto) 0.26 K/uL (0-0.5); Hematocrit (blood only) 25.7 % (37-47); Hemoglobin 8.6 g/dL (12.0-16.0); Immature Granulocytes # (auto) 0.03 K/uL (0.00-0.02); Immature Granulocytes % (auto) 0.3 %; Lymphocytes # (auto) 1.38 K/uL (1.2-3.4); Lymphocytes % (auto) 15.8 %; Mean Corpuscular Hemoglobin 31.7 pg (25-34); Mean Corpuscular Hgb Conc 33.5 g/dL (32-36); Mean Corpuscular Volume 94.8 fL (80-100); Mean Platelet Volume 9.7 fL (7.4-10.4); Monocytes # (auto) 0.66 K/uL (0.11-0.59); Monocytes % (auto) 7.6 %; Neutrophils # (auto) 6.35 K/uL (1.4-6.5); Neutrophils % (auto) 72.7 %; Platelet Count 336 K/uL (130-400); RDW Coefficient of Variation 15.5 % (11.5-14.5); RDW Standard Deviation 53.1 fL (36.4-46.3); Red Blood Count 2.71 M/uL (4.2-5.4); White Blood Count 8.73 K/uL (4.8-10.8)
[2019-04-12] MEDS ORDERED: PANTOprazole 80 MG in DEXTROSE 5% 100 ML IV STA (06:33)
[2019-04-12] MEDS ORDERED: SODIUM CHLORIDE 0.9% 1000ML 1,000 ML IV SCH (06:45)
[2019-04-12] MEDS ORDERED: SODIUM CHLORIDE 0.9% 250 ML IV PRN ×4 (06:46→08:46)
[2019-04-12 06:49] LABS: Partial Thromboplastin Ratio > 5.1
[2019-04-12] MEDS ORDERED: DiphenhydrAMINE HCL 50 MG/ML VIAL IV ONE (06:49)
[2019-04-12 06:50] LABS: Partial Thromboplastin Time > 139.0 Seconds (21.0-31.0)
[2019-04-12 07:01] LABS: BUN Creatinine Ratio 15.3 (10-20); Calcium 8.8 mg/dl (8.5-10.1); Creatinine Clr Calc Pharmacy 48.6 ml/min; Est GFR (African American) 83.3; Est GFR (Non-African American) 71.9; Potassium 3.8 mmol/L (3.5-5.1)
[2019-04-12] MEDS: PANTOprazole 40 MG in DEXTROSE 5% 100 ML IV SCH ×4 (07:13→21:48)
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
[2019-04-12 08:15] LABS: Partial Thromboplastin Ratio > 5.1
[2019-04-12 08:17] LABS: Partial Thromboplastin Time > 139.0 Seconds (21.0-31.0)
[2019-04-12] MEDS ORDERED: PROCHLORPERAZINE 5 MG in SYRINGE 4 ML IV ONE ×2 (08:58→13:00)
[2019-04-12] MEDS ORDERED: ICU PROTOCOL FOR HYPERGLYCEMIA PRN (09:00)
--- NOTE | 2019-04-12 09:15 | Hospitalist Progress Note ---
Date of Service April 12, 2019 Assessment & Plan (1) Bilateral pulmonary embolism: Patient is an 84 yo woman with a PMHx of adenocarcinoma of the colon and massive PE in 2018 on Xarelto who was sent to the ED by her oncologist for L sided pulmonary emboli visualized on routine Chest CT for surveillance of previous colon cancer ED Course: On arrival patient was found to be anemic with a hgb of 8.6 (down from 13.1 in 01/2019). Hemoccult stool + on admission and on outpatient stool cards from 03/29. Started on IV heparin drip for the pulmonary emboli. Protonix drip was started. A CT Abd/pel scan was ordered, showing likely metastatic progression of adenocarcinoma to the pancreas and stomach. Pulmonary Emboli-asymptomatic, hemodynamically stable. Not hypoxic, mild tachycardia which is now improved and likely more due to anemia -involving segmental and subsegmental branches of the left upper lobe - Patient had massive PE in 2018 and has been anticoagulated on Xarelto; INR 1.1 on admission - likely secondary to new cancerous disease (hypercoagulable state) - Discussed case with radiologist, who confirmed that emboli are acute rather than chronic (from massive PE in 2018) -now heparin gtt on hold for coagulopathy and for massive GI bleeding -Discontinued Xarelto -Appreciate hematology/oncology consultation-plan was to eventually convert to Coumadin once per all procedures and GI bleeding resolved, but may be too high risk to continue anticoagulation (2) Colon adenocarcinoma: Adenocarcinoma of Colon/pancreatic masses -Colon CA originally diagnosed in September 2017 s/p resection and chemotherapy (last infusion Apr 2018) - colonoscopy in December 2018 showed no recurrence - Report of CT A/P on admission: Significant interval progression of disease with multiple upper abdominal sites of metastases, which may represent parenchymal metastases to the pancreas and stomach versus peritoneal implants versus lymphadenopathy. This predominantly affects the pancreas and peripancreatic regions as well as along the serosa of the splenic flexure and serosa of the stomach in multiple locations. Notably, the largest pancreatic or peripancreatic lesions directly erodes the gastric antrum. With masses in and around the pancreas invading into the stomach-consulted GI EGD on 04/11 showed mass in the stomach and the duodenum, biopsies taken -Concern for new primary given atypical appearance for metastatic colon cancer--> prelim path report as per GI's discussion with Pathology is a poorly differentiated adenocarcinoma that does not appear to be from the colon--> likely a new primary, possibly pancreatic CA CEA normal CA 19-9 pending Await final pathology results -Appreciate oncology consultation-may offer Palliative chemo however with discussion with Palliative Care--> pt may opt for no treatment and to go no hospice (3) Anemia: Anemia with positive hemoccult stools/GI bleed/acute blood loss anemia - hgb 8.6 on admission, down from 13.1 in 01/2019 - iron level low at 31 on 03/25/19; on IV and oral supplementation as an outpatient prior to admission - etiology likely secondary to iron deficiency as per outpatient workup, secondary to blood loss due to occult GI bleed from stomach and duodenum tumors -Repeat hemoglobin on next day up to 9.2 -on AM of 04/12, pt had massive hematemesis of approximately 1000mL blood and systolic BP 68 --> responded to IVF bolus Hgb dropped to 6.7 and PTT was >139 persistently, likely secondary to infiltrated heparin gtt from day previous (absorbed SQ perhaps?) -transferred to ICU, given FFP, PRBCs -continue PPI gtt -serial CBCs -transfuse to keep hgb>8 -no GI intervention here will likely be beneficial -no IR available-pt has chosen to NOT be transferred to tertiary care facility -no anticoagulation at this time (4) GI bleed: as above, secondary to gastric and duodenal tumors (5) Pancreatic mass: as above path pending from biopsies, poorly differentiated adenocarcinoma--> possibly pancreatic (6) Acute blood loss anemia: as above (7) Hemorrhagic shock: as above, with BP briefly in the 60s systolic from acute blood loss -transfusing PRBCs, FFP, and gave crystalloid fluids BPs now improved (8) DVT prophylaxis: Heparin gtt now stopped Dispo-transferred to ICU Changed CODE status to DNR/DNI today after lengthy discussion Palliative Care involved-appreciate consultation I spent 45 minutes of prolonged service time with this patient, discussing care with multiple specialists, coordinating care and transfer of patient. Subjective Pt had hematemesis of [place] blood last night, about 500mL x 2. BP dropped to 60s systolic and responded to a 1L bolus of NS. PRBCs were ordered and pt was assessed. Her PTT remained high all night long despite holding the heparin gtt likely due to the previous infiltration of heparin in her upper extremity from yesterday being absorbed. Pt denied lightheadedness or headache. She had some upper abdominal discomfort. Denied CP or SOB. I discussed her case urgently with the Embossing Press Operator Apprentice and also Critical Care PA, as well as GI and Oncology. Tele with NSR, rates 70s-80s. Pt was transferred down to ICU and given 4 units FFP as well as PRBC transfusion. Lengthy discussion was had with patient, 2 daughters, and Embossing Press Operator Apprentice at bedside about possible transfer to tertiary care facility in case of need for IR to stop her bleeding and for possibility of needing oncologic surgeon. Ultimately, she decided she did not want to be transferred. She understands the limitations of this facility, and said "if I'm going to soon, I would rather at [facility]." Review of Systems Review of Systems: All systems reviewed & are unremarkable except as noted in HPI & below Physical Exam Constitutional: WD/WN, vitals as above Eyes: + anicteric sclerae ENMT: external ear and nose normal, oropharynx normal Neck: trachea midline, no thyromegaly Respiratory: normal respiratory effort, lungs clear to auscultation Cardiovascular: RRR, no murmur, no edema Vessels: dorsalis pedis pulses present Extremities: normal capillary refill Gastrointestinal (Abdomen): Inspection/Auscultation: abdomen normal to inspection and normal bowel sounds; abdomen not distended Percussion/Palpation: + abdomen tender (minimal, in epigastric region without guarding or rebound) and abdomen soft Musculoskeletal: Extremities: extremities normal to inspection; no cyanosis and no clubbing Skin: no rashes, warm and dry Neurologic: moves all extremities and awake; no focal motor deficits Psychiatric: A+Ox3, euthymic affect Results & Data Vital Signs (Past 12 Hours) Vital Signs Temp Pulse Pulse Resp BP BP Pulse Ox 04/12/19 08:52 81 24 125/58 L 100 04/12/19 08:50 36.9 C 85 18 119/62 100 04/12/19 08:36 36.9 C 82 18 113/56 L 100 04/12/19 08:15 94 H 20 107/61 04/12/19 07:57 36.6 C 76 20 113/67 100 04/12/19 06:25 126/71 04/12/19 06:08 104/64 04/12/19 06:05 68/36 L 04/12/19 03:59 36.8 C 88 20 123/67 98 04/11/19 23:17 36.9 C 78 16 103/60 99 Laboratory Results 04/12/19 04/12/19 04/12/19 Range/Units 22:09 17:48 09:30 WBC (4.8-10.8) K/uL RBC (4.2-5.4) M/uL Hgb 8.3 L 6.7 L* (12.0-16.0) g/dL Hct 24.2 L 20.1 L* (37-47) % MCV (80-100) fL MCH (25-34) pg MCHC (32-36) g/dL RDW Std Deviation (36.4-46.3) fL RDW Coeff of Chandrika (11.5-14.5) % Plt Count (130-400) K/uL MPV (7.4-10.4) fL Immature Gran % (Auto) % Neut % (Auto) % Lymph % (Auto) % Evans % (Auto) % Eos % (Auto) % Baso % (Auto) % Immature Gran # (Auto) (0.00-0.02) K/uL Neut # (Auto) (1.4-6.5) K/uL Lymph # (Auto) (1.2-3.4) K/uL Evans # (Auto) (0.11-0.59) K/uL Eos # (Auto) (0-0.5) K/uL Baso # (Auto) (0-0.2) K/uL PT 11.5 (9.0-12.0) Seconds INR 1.1 (0.9-1.1) APTT (21.0-31.0) Seconds PTT Ratio Fibrinogen 402 H (184-400) mg/dl Sodium (136-145) mmol/L Potassium (3.5-5.1) mmol/L Chloride (98-107) mmol/L Carbon Dioxide (21-32) mmol/L Anion Gap (3-11) BUN (7-18) mg/dl Creatinine (0.6-1.2) mg/dl Est Cr Clr Drug Dosing ml/min Est GFR ( Amer) Est GFR (Non-Af Amer) BUN/Creatinine Ratio (10-20) Glucose (70-99) mg/dl Calcium (8.5-10.1) mg/dl Nasal Screen MRSA (PCR) (Negative) Blood Type Antibody Screen Crossmatch 04/12/19 04/12/19 04/12/19 Range/Units 09:30 08:34 07:34 WBC 6.99 (4.8-10.8) K/uL RBC 2.13 L (4.2-5.4) M/uL Hgb 6.7 L* (12.0-16.0) g/dL Hct 20.3 L* (37-47) % MCV 95.3 (80-100) fL MCH 31.5 (25-34) pg MCHC 33.0 (32-36) g/dL RDW Std Deviation 53.7 H (36.4-46.3) fL RDW Coeff of Chandrika 15.5 H (11.5-14.5) % Plt Count 237 (130-400) K/uL MPV 9.7 (7.4-10.4) fL Immature Gran % (Auto) % Neut % (Auto) % Lymph % (Auto) % Evans % (Auto) % Eos % (Auto) % Baso % (Auto) % Immature Gran # (Auto) (0.00-0.02) K/uL Neut # (Auto) (1.4-6.5) K/uL Lymph # (Auto) (1.2-3.4) K/uL Evans # (Auto) (0.11-0.59) K/uL Eos # (Auto) (0-0.5) K/uL Baso # (Auto) (0-0.2) K/uL PT (9.0-12.0) Seconds INR (0.9-1.1) APTT > 139.0 H* (21.0-31.0) Seconds PTT Ratio > 5.1 Fibrinogen (184-400) mg/dl Sodium (136-145) mmol/L Potassium (3.5-5.1) mmol/L Chloride (98-107) mmol/L Carbon Dioxide (21-32) mmol/L Anion Gap (3-11) BUN (7-18) mg/dl Creatinine (0.6-1.2) mg/dl Est Cr Clr Drug Dosing ml/min Est GFR ( Amer) Est GFR (Non-Af Amer) BUN/Creatinine Ratio (10-20) Glucose (70-99) mg/dl Calcium (8.5-10.1) mg/dl Nasal Screen MRSA (PCR) Negative (Negative) Blood Type Antibody Screen Crossmatch 04/12/19 04/12/19 04/12/19 Range/Units 06:13 06:13 06:13 WBC 8.73 (4.8-10.8) K/uL RBC 2.71 L (4.2-5.4) M/uL Hgb 8.6 L (12.0-16.0) g/dL Hct 25.7 L (37-47) % MCV 94.8 (80-100) fL MCH 31.7 (25-34) pg MCHC 33.5 (32-36) g/dL RDW Std Deviation 53.1 H (36.4-46.3) fL RDW Coeff of Chandrika 15.5 H (11.5-14.5) % Plt Count 336 (130-400) K/uL MPV 9.7 (7.4-10.4) fL Immature Gran % (Auto) 0.3 % Neut % (Auto) 72.7 % Lymph % (Auto) 15.8 % Evans % (Auto) 7.6 % Eos % (Auto) 3.0 % Baso % (Auto) 0.6 % Immature Gran # (Auto) 0.03 H (0.00-0.02) K/uL Neut # (Auto) 6.35 (1.4-6.5) K/uL Lymph # (Auto) 1.38 (1.2-3.4) K/uL Evans # (Auto) 0.66 H (0.11-0.59) K/uL Eos # (Auto) 0.26 (0-0.5) K/uL Baso # (Auto) 0.05 (0-0.2) K/uL PT (9.0-12.0) Seconds INR (0.9-1.1) APTT > 139.0 H* (21.0-31.0) Seconds PTT Ratio > 5.1 Fibrinogen (184-400) mg/dl Sodium 132 L (136-145) mmol/L Potassium 3.8 (3.5-5.1) mmol/L Chloride 99 (98-107) mmol/L Carbon Dioxide 26 (21-32) mmol/L Anion Gap 7.0 (3-11) BUN 12 D (7-18) mg/dl Creatinine 0.77 (0.6-1.2) mg/dl Est Cr Clr Drug Dosing 48.6 ml/min Est GFR ( Amer) 83.3 Est GFR (Non-Af Amer) 71.9 BUN/Creatinine Ratio 15.3 (10-20) Glucose 132 H (70-99) mg/dl Calcium 8.8 (8.5-10.1) mg/dl Nasal Screen MRSA (PCR) (Negative) Blood Type Antibody Screen Crossmatch 04/12/19 04/11/19 04/11/19 Range/Units 00:26 23:21 22:32 WBC (4.8-10.8) K/uL RBC (4.2-5.4) M/uL Hgb (12.0-16.0) g/dL Hct (37-47) % MCV (80-100) fL MCH (25-34) pg MCHC (32-36) g/dL RDW Std Deviation (36.4-46.3) fL RDW Coeff of Chandrika (11.5-14.5) % Plt Count (130-400) K/uL MPV (7.4-10.4) fL Immature Gran % (Auto) % Neut % (Auto) % Lymph % (Auto) % Evans % (Auto) % Eos % (Auto) % Baso % (Auto) % Immature Gran # (Auto) (0.00-0.02) K/uL Neut # (Auto) (1.4-6.5) K/uL Lymph # (Auto) (1.2-3.4) K/uL Evans # (Auto) (0.11-0.59) K/uL Eos # (Auto) (0-0.5) K/uL Baso # (Auto) (0-0.2) K/uL PT (9.0-12.0) Seconds INR (0.9-1.1) APTT 93.9 H* 134.8 H* > 139.0 H* (21.0-31.0) Seconds PTT Ratio 3.5 5.0 > 5.1 Fibrinogen (184-400) mg/dl Sodium (136-145) mmol/L Potassium (3.5-5.1) mmol/L Chloride (98-107) mmol/L Carbon Dioxide (21-32) mmol/L Anion Gap (3-11) BUN (7-18) mg/dl Creatinine (0.6-1.2) mg/dl Est Cr Clr Drug Dosing ml/min Est GFR ( Amer) Est GFR (Non-Af Amer) BUN/Creatinine Ratio (10-20) Glucose (70-99) mg/dl Calcium (8.5-10.1) mg/dl Nasal Screen MRSA (PCR) (Negative) Blood Type Antibody Screen Crossmatch 04/11/19 04/10/19 Range/Units 21:43 18:12 WBC (4.8-10.8) K/uL RBC (4.2-5.4) M/uL Hgb (12.0-16.0) g/dL Hct (37-47) % MCV (80-100) fL MCH (25-34) pg MCHC (32-36) g/dL RDW Std Deviation (36.4-46.3) fL RDW Coeff of Chandrika (11.5-14.5) % Plt Count (130-400) K/uL MPV (7.4-10.4) fL Immature Gran % (Auto) % Neut % (Auto) % Lymph % (Auto) % Evans % (Auto) % Eos % (Auto) % Baso % (Auto) % Immature Gran # (Auto) (0.00-0.02) K/uL Neut # (Auto) (1.4-6.5) K/uL Lymph # (Auto) (1.2-3.4) K/uL Evans # (Auto) (0.11-0.59) K/uL Eos # (Auto) (0-0.5) K/uL Baso # (Auto) (0-0.2) K/uL PT (9.0-12.0) Seconds INR (0.9-1.1) APTT > 139.0 H* (21.0-31.0) Seconds PTT Ratio > 5.1 Fibrinogen (184-400) mg/dl Sodium (136-145) mmol/L Potassium (3.5-5.1) mmol/L Chloride (98-107) mmol/L Carbon Dioxide (21-32) mmol/L Anion Gap (3-11) BUN (7-18) mg/dl Creatinine (0.6-1.2) mg/dl Est Cr Clr Drug Dosing ml/min Est GFR ( Amer) Est GFR (Non-Af Amer) BUN/Creatinine Ratio (10-20) Glucose (70-99) mg/dl Calcium (8.5-10.1) mg/dl Nasal Screen MRSA (PCR) (Negative) Blood Type A Negative Antibody Screen NEGATIVE Crossmatch See Detail PG Care Time/CCT Total # of Minutes Spent Total Time Spent: 80 Total Time Spent with Patient: Total time spent is greater than 50% in coordination of care (as documented) at patient's floor/unit and/or counseling patient: Prolonged Care Time Prolonged Care Time: Yes Total Prolonged Care Time: 45 (1) GI bleed GI bleed type/associated pathology: unspecified gastrointestinal hemorrhage type Qualified Code(s): K92.2 - Gastrointestinal hemorrhage, unspecified
[2019-04-12 09:43] LABS: Hematocrit (blood only) 20.3 % (37-47); Hemoglobin 6.7 g/dL (12.0-16.0); Mean Corpuscular Hemoglobin 31.5 pg (25-34); Mean Corpuscular Volume 95.3 fL (80-100); Mean Platelet Volume 9.7 fL (7.4-10.4); Platelet Count 237 K/uL (130-400); RDW Coefficient of Variation 15.5 % (11.5-14.5); RDW Standard Deviation 53.7 fL (36.4-46.3); Red Blood Count 2.13 M/uL (4.2-5.4); White Blood Count 6.99 K/uL (4.8-10.8)
[2019-04-12 09:57] LABS: Fibrinogen 402 mg/dl (184-400); INR 1.1 (0.9-1.1); Prothrombin Time 11.5 Seconds (9.0-12.0)
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
[2019-04-12] MEDS: FERROUS SULFATE 325 MG TAB PO SCH (10:29)
--- NOTE | 2019-04-12 13:06 | Progress Note ---
DATE: 04/12/2019 DIAGNOSES: 1. Recurrent pulmonary embolus while on direct oral thrombin inhibition. 2. Suspected metastatic carcinoma versus new primary. 3. Iron deficiency anemia. 4. Hemoccult positive stools. SUBJECTIVE: Ruth is a very pleasant 84-year-old female patient well known to [facility], currently under my care with a stage III colorectal cancer. She was admitted because of recurrent pulmonary embolism and suspected expansion of metastatic disease versus new primary. She was also reportedly with melena of stools confirmed by occult blood card. She was subsequently admitted and anticoagulated with heparin. Apparently, the IV site infiltrated overnight and heparin was infused into her right upper extremity. Thus monitoring PTT has become somewhat dubious. She also underwent an EGD by Dr. Sarkar which showed multiple lesions surround the duodenum which were fragile and friable and showing indication of active bleeding. Reportedly there was an episode of hematemesis as well. Critical care was consulted and had planned to transfer Ruth to the [facility]; however, she has respectively refused. She is currently receiving 2 units of packed RBCs and off of anticoagulation at this moment. She feels some nausea. Her appetite has been poor over the past several days leading up to admission. Ruth has been transferred to the ICU, which I believe is appropriate. We will continue to follow her closely. OBJECTIVE: GENERAL: A very pleasant 84-year-old female in no acute distress. VITAL SIGNS: Temperature 37, pulse 82, respiratory rate 12, blood pressure 121/61. SKIN: Without rash or lesion. HEENT: Oral mucosa without erythema or ulceration. HEART: Regular rate and rhythm. LUNGS: Clear to auscultation bilaterally. ABDOMEN: Soft, nontender, nondistended. EXTREMITIES: No clubbing, cyanosis or edema. NEUROLOGICAL: Grossly intact. LABORATORY DATA: WBC count 6990, hemoglobin 6.7, platelet count 237,000. Her PTT is in excess of 139 seconds. Sodium 132, potassium 3.8, chloride 99, carbon dioxide 26, creatinine 0.77, BUN 12. IMPRESSION: 1. Active upper gastrointestinal bleeding. 2. Recurrent pulmonary embolus while on direct oral thrombin inhibition. 3. 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 4. Iron deficiency anemia. 5. Hemoccult positive stools. 6. Infiltration of the anticoagulant. PLAN: Ruth was seen at bedside with family members present and engaged in discussion regarding decisions made today not to pursue transfer. Ruth and her family fully understand the risk involved and the need for resumed anticoagulation at some point. The risk of continued anticoagulation obviously is bleeding. The patient is now being managed by the critical care team, which will watch her H&H closely. I agree anticoagulation should be held until her PTT retreats towards normal. Obviously moving forward, anticoagulation will be a challenge and unfortunately in this clinical scenario, there is no right or wrong answer. Biopsies were obtained by Dr. Sarkar and await confirmation to provide recommendations for treatment moving forward. Clearly, Ruth is not a surgical candidate. Again, questions were answered to the patient's satisfaction. I firmly believe Ruth and family members are keenly aware of the risks involved with her current clinical situation. I will continue to follow her closely during hospital stay. I appreciate the critical care and medical team's help in caring for this very pleasant patient. MERI
--- NOTE | 2019-04-12 16:15 | Progress Note ---
DATE: 04/12/2019 The patient had a large volume hematemesis early this morning, possibly a liter of blood. She was hypotensive and her hemoglobin dropped significantly and she was transferred to the intensive care unit. Her PT was elevated from heparin at 139 and subsequently is being reversed with fresh frozen plasma. She is getting 3 units of fresh frozen plasma. She has got a unit of blood and the plan is to give her another unit for the hemoglobin of 6.7. She is currently not having any abdominal pain. Blood pressure is 122/43, pulse 84, room air saturation 100%. Sitting in bed and coherent. I reviewed the biopsies that I took yesterday from the duodenum and body of the stomach with Dr. Shorty Venegas, the pathologist, and he informed me that they both showed poorly differentiated carcinoma. Does not look like lymphoma or the previous colon cancer that she had a year and a half ago, so it is probably a new primary that is invading these areas. The antrum of the stomach was normal, but the duodenal bulb was eroded as was a mass in the upper body of the stomach, either one of these could have been the bleeding source. Fortunately, the bleeding is temporarily stopped. The dilemma is she is hypercoagulable and has pulmonary emboli. I had a discussion with the patient and her multiple family members in the room this afternoon about the preliminary results of her pathology and the dilemma about anticoagulating her for the pulmonary embolism and trying to keep her from rebleeding by giving her plasma and blood. Currently, the biggest risk is her bleeding and that is being addressed appropriately. The patient has decided not to be resuscitated or transferred to an outside facility, which is her choice and she is aware of the consequences and risks of not intervening. Once the patient is stabilized, then exploration can be begun concerning her care options such as hospice. We will follow the patient.
[2019-04-12] MEDS ORDERED: ONDANSETRON INJ 2 MG/ML 2 ML VIAL IV PRN (17:02)
[2019-04-12 18:53] LABS: Hematocrit (blood only) 20.1 % (37-47); Hemoglobin 6.7 g/dL (12.0-16.0)
[2019-04-12] MEDS: SODIUM CHLORIDE 0.9% 1000ML 1,000 ML IV SCH (21:52)
[2019-04-12 22:17] LABS: Hematocrit (blood only) 24.2 % (37-47); Hemoglobin 8.3 g/dL (12.0-16.0)
[2019-04-13] MEDS: PANTOprazole 40 MG in DEXTROSE 5% 100 ML IV SCH ×5 (03:00→23:15)
[2019-04-13 04:27] LABS: Basophils # (auto) 0.01 K/uL (0-0.2); Basophils % (auto) 0.1 %; Eosinophils # (auto) 0.09 K/uL (0-0.5); Eosinophils % (auto) 1.3 %; Hematocrit (blood only) 23.8 % (37-47); Hemoglobin 8.2 g/dL (12.0-16.0); Immature Granulocytes # (auto) 0.02 K/uL (0.00-0.02); Immature Granulocytes % (auto) 0.3 %; Lymphocytes # (auto) 1.07 K/uL (1.2-3.4); Mean Corpuscular Hemoglobin 30.5 pg (25-34); Mean Corpuscular Hgb Conc 34.5 g/dL (32-36); Mean Corpuscular Volume 88.5 fL (80-100); Mean Platelet Volume 9.5 fL (7.4-10.4); Monocytes # (auto) 0.58 K/uL (0.11-0.59); Monocytes % (auto) 8.1 %; Neutrophils # (auto) 5.37 K/uL (1.4-6.5); Neutrophils % (auto) 75.2 %; Platelet Count 152 K/uL (130-400); RDW Coefficient of Variation 17.9 % (11.5-14.5); RDW Standard Deviation 57.9 fL (36.4-46.3); Red Blood Count 2.69 M/uL (4.2-5.4); White Blood Count 7.14 K/uL (4.8-10.8)
[2019-04-13 04:35] LABS: INR 1.1 (0.9-1.1); Prothrombin Time 11.2 Seconds (9.0-12.0)
[2019-04-13 04:51] LABS: BUN Creatinine Ratio 18.3 (10-20); Calcium 7.8 mg/dl (8.5-10.1); Creatinine Clr Calc Pharmacy 68.1 ml/min; Est GFR (African American) 101.2; Est GFR (Non-African American) 87.4; Magnesium 1.8 mg/dl (1.8-2.4); Phosphorus 1.9 mg/dl (2.5-4.9); Potassium 3.1 mmol/L (3.5-5.1)
[2019-04-13] MEDS ORDERED: POTASSIUM PHOS 3 MMOL/1 ML INFUSION IV STA ×2 (05:43→05:51)
[2019-04-13] MEDS ORDERED: POTASSIUM CHLORIDE 20 MEQ TABCR PO STA (05:43)
[2019-04-13] MEDS ORDERED: POTASSIUM PHOSPHATE 30 MMOL in SODIUM CHLORIDE 0.9% 500 ML IV ONE (06:30)
[2019-04-13] MEDS: SODIUM CHLORIDE 0.9% 1000ML 1,000 ML IV SCH ×3 (06:38→14:07)
--- NOTE | 2019-04-13 06:48 | Critical Care Progress Note ---
Date of Service April 13, 2019 Assessment & Plan (1) Admitted to intensive care unit: Reason Critically Ill: Ruth Mathias is a 84 y/o with past medical history of adenocarcinoma of colon and current PE. She was getting worked up for new stomach and duodenum mass and also active PE. She developed hematemesis this AM from presumed GI bleed from tumor sites while receiving anti-coagulation for PE. She was transferred to ICU for continued care and management. Risks, benefits with regards to current illness and discussion for transfer to tertiary care facility for treatment of GI bleed; Patient elects to remain here at [facility] for supportive care over transfer for possible IR intervention. She is aware of potential loss of life from continuing GI bleed that cannot be surgically intervened at [facility]. Neuro: alert and oriented x3 Currently not having any pain Cardiac/Vascular: BPs were stable overnight with stable hemodynamics Continue to monitor hemodynamics; continue cardiac monitoring Pulm: Currently with Pulmonary emboli (Had PE while on Xarelto) involve segmental and subsegmental branches of the left upper lobe No currently requiring supplemental oxygen requirements Her aPTT this morning is 26.1 which is WNL from previous values >139 Currently at risk for worsening active PE GI: Since currently not looking for active aggressive treatment of her GI bleed; will restart diet to increase patient comfort Pantoprazole drip Zofran 4mg IV PRN for nausea; ECG reviewed, no prolonged QTc Had EGD 04/11 with biopsies taken from; bx dx pending pathology - per Dr. Swift who spoke with Pathologist there is suspicion that this is recurrence of colon cancer Abd/Pelvis CT performed 04/10 concerning for possible new Pancreatic cancer vs. metastatic return of colon cancer * Significant interval progression of disease with multiple upper abdominal sites of metastases, which may represent parenchymal metastases to the pancreas and stomach versus peritoneal implants versus lymphadenopathy. This predominantly affects the pancreas and peripancreatic regions as well as along the serosa of the splenic flexure and serosa of the stomach in multiple locations. Notably, the largest pancreatic or peripancreatic lesions directly erodes the gastric antrum Renal/Lytes: Sodium WNL Potassium 3.1 and Phos 1.9; KPhos IV ordered already by overnight team; trend values IVFs NSS @ 110mls/hr as NPO : No current issues Endo: No thryroid or DM dz ICU hyperglycemia protocol Heme: Acute blood loss anemia from GI bleed with symptoms of hematemsis Her aPTT this morning is 26.1 which is WNL from previous values >139; had infiltration of heparin in RUE. Initial Hgb drawn was 6.7 from acute bleeding episode on 11 AM; after receiving 1 pRBC and 3 FFP recheck of Hgb was 6.7 @17:48 on 04/12; she received another unit of pRBCs with repeat values of 8.3 (22:09 04/12) and 8.2 (03:59 04/13). Will recheck value later this evening. Monitor for signs of active bleeding ID: No current signs of active infection Lines: peripheral IVs DVT ppx: None currently in setting of active GI bleed Resuscitation status: Discussed with patient and family who elect to not have resuscitation in event of cardiac arrest. Stable for downgrade out of ICU (2) Colon adenocarcinoma: (3) Anemia: (4) GI bleed: (5) Pulmonary embolism: Supervising Physician Co-Signing Physician Notes Dr. Suarez was resident physician during care of patient. I separately evaluated patient for hickey portions of the history and the exam. I was present during the critical portion of medical decision making, and I discussed the case with the resident. I generally agree with the findings and plan. Patient's H&H is largely stabilized, she is asymptomatic., Continue PPI. Stable for downgrade out of ICU. Awaiting formal pathology results. Subjective Ruth notes feeling much improved this morning. She had no signs of bleeding overnight. She notes nausea yesterday but none currently. No hematemsis overnight. No dyspnea, no dizziness/lightheadedness, no chest pain. She states she is happy with her decision not to proceed with transfer to [facility] for more aggressive treatments. She notes she slept well last night and states that also helped to make her feel better this morning. Review of Systems Review of Systems: All systems reviewed & are unremarkable except as noted in HPI & below Physical Exam Constitutional: cooperative and comfortable Eyes: PERRL and EOM intact bilaterally ENMT: external ear and nose normal, oropharynx normal Neck: normal visual inspection and trachea midline Respiratory: normal respiratory effort, lungs clear to auscultation Cardiovascular: Rate/Rhythm: regular rate and regular rhythm Gastrointestinal (Abdomen): Percussion/Palpation: abdomen soft; no guarding and abdomen not rigid Musculoskeletal: Head/Neck/Chest: normocephalic and head atraumatic Skin: no rashes, warm and dry Neurologic: moves all extremities and awake; no focal motor deficits and not confused Speech / Cognition: normal speech Psychiatric: Orientation: alert and oriented x 3 Results & Data Vital Signs (Past 12 Hours) Vital Signs Temp Pulse Resp BP Pulse Ox 04/13/19 06:00 65 7 L 114/50 L 97 04/13/19 05:00 68 14 114/53 L 100 04/13/19 04:00 36.5 C 70 15 116/52 L 97 04/13/19 03:00 70 17 110/49 L 99 04/13/19 02:00 77 15 110/49 L 97 04/13/19 01:00 72 16 117/54 L 97 04/13/19 00:00 74 12 112/50 L 98 04/12/19 23:30 69 6 L 122/53 L 97 04/12/19 23:00 74 14 132/53 L 97 04/12/19 22:30 75 12 131/59 L 98 04/12/19 22:00 75 17 134/58 L 98 04/12/19 21:28 36.7 C 75 14 141/66 H 99 04/12/19 21:00 36.8 C 78 18 131/60 99 04/12/19 20:15 79 8 L 129/58 L 97 04/12/19 20:00 36.7 C 91 H 13 130/52 L 96 04/12/19 19:45 94 H 12 133/59 L 98 04/12/19 19:30 83 11 L 129/52 L 99 04/12/19 19:15 87 13 128/58 L 99 04/12/19 19:00 36.6 C 86 14 136/51 L 100 Laboratory Results Laboratory Results - last 24 hr 04/10/19 04/12/19 04/12/19 18:12 08:34 09:30 WBC 6.99 RBC 2.13 L Hgb 6.7 L* Hct 20.3 L* MCV 95.3 MCH 31.5 MCHC 33.0 RDW Std Deviation 53.7 H RDW Coeff of Chandrika 15.5 H Plt Count 237 MPV 9.7 Immature Gran % (Auto) Neut % (Auto) Lymph % (Auto) Tyrrell % (Auto) Eos % (Auto) Baso % (Auto) Immature Gran # (Auto) Neut # (Auto) Lymph # (Auto) Tyrrell # (Auto) Eos # (Auto) Baso # (Auto) PT INR APTT PTT Ratio Fibrinogen Sodium Potassium Chloride Carbon Dioxide Anion Gap BUN Creatinine Est Cr Clr Drug Dosing Est GFR ( Amer) Est GFR (Non-Af Amer) BUN/Creatinine Ratio Glucose Calcium Phosphorus Magnesium Nasal Screen MRSA (PCR) Negative Blood Type A Negative Antibody Screen NEGATIVE Crossmatch See Detail 04/12/19 04/12/19 04/12/19 09:30 17:48 22:09 WBC RBC Hgb 6.7 L* 8.3 L Hct 20.1 L* 24.2 L MCV MCH MCHC RDW Std Deviation RDW Coeff of Chandrika Plt Count MPV Immature Gran % (Auto) Neut % (Auto) Lymph % (Auto) Tyrrell % (Auto) Eos % (Auto) Baso % (Auto) Immature Gran # (Auto) Neut # (Auto) Lymph # (Auto) Tyrrell # (Auto) Eos # (Auto) Baso # (Auto) PT 11.5 INR 1.1 APTT PTT Ratio Fibrinogen 402 H Sodium Potassium Chloride Carbon Dioxide Anion Gap BUN Creatinine Est Cr Clr Drug Dosing Est GFR ( Amer) Est GFR (Non-Af Amer) BUN/Creatinine Ratio Glucose Calcium Phosphorus Magnesium Nasal Screen MRSA (PCR) Blood Type Antibody Screen Crossmatch 04/13/19 04/13/19 04/13/19 03:59 03:59 03:59 WBC 7.14 RBC 2.69 L Hgb 8.2 L Hct 23.8 L MCV 88.5 D MCH 30.5 MCHC 34.5 RDW Std Deviation 57.9 H RDW Coeff of Chandrika 17.9 H Plt Count 152 MPV 9.5 Immature Gran % (Auto) 0.3 Neut % (Auto) 75.2 Lymph % (Auto) 15.0 Tyrrell % (Auto) 8.1 Eos % (Auto) 1.3 Baso % (Auto) 0.1 Immature Gran # (Auto) 0.02 Neut # (Auto) 5.37 Lymph # (Auto) 1.07 L Tyrrell # (Auto) 0.58 Eos # (Auto) 0.09 Baso # (Auto) 0.01 PT 11.2 INR 1.1 APTT PTT Ratio Fibrinogen Sodium 137 Potassium 3.1 L D Chloride 104 Carbon Dioxide 28 Anion Gap 5.0 BUN 10 Creatinine 0.55 L Est Cr Clr Drug Dosing 68.1 Est GFR ( Amer) 101.2 Est GFR (Non-Af Amer) 87.4 BUN/Creatinine Ratio 18.3 Glucose 98 Calcium 7.8 L Phosphorus 1.9 L Magnesium 1.8 Nasal Screen MRSA (PCR) Blood Type Antibody Screen Crossmatch 04/13/19 03:59 WBC RBC Hgb Hct MCV MCH MCHC RDW Std Deviation RDW Coeff of Chandrika Plt Count MPV Immature Gran % (Auto) Neut % (Auto) Lymph % (Auto) Tyrrell % (Auto) Eos % (Auto) Baso % (Auto) Immature Gran # (Auto) Neut # (Auto) Lymph # (Auto) Tyrrell # (Auto) Eos # (Auto) Baso # (Auto) PT INR APTT 26.1 PTT Ratio 1.0 Fibrinogen Sodium Potassium Chloride Carbon Dioxide Anion Gap BUN Creatinine Est Cr Clr Drug Dosing Est GFR ( Amer) Est GFR (Non-Af Amer) BUN/Creatinine Ratio Glucose Calcium Phosphorus Magnesium Nasal Screen MRSA (PCR) Blood Type Antibody Screen Crossmatch Medications Administered Ferrous Sulfate (Feosol) 325 mg PO QAM [facility] Stop: 05/11/19 08:59 Last Admin: 04/13/19 08:32 Dose: 325 mg Documented by: [id number] Admin: 04/12/19 10:29 Dose: Not Given Documented by: [id number] Admin: 04/11/19 10:26 Dose: 325 mg Documented by: [id number] Cosigned by: [id number] Heparin Sodium/Dextrose (Heparin Sodium/Dextrose) 25,000 units in 500 mls @ 0 mls/hr IV .Q0M [facility]; Protocol Stop: 05/10/19 18:44 Last Admin: 04/13/19 08:27 Dose: Not Given Documented by: [id number] Titration: 04/12/19 06:15 Dose: 0 units/hr, 0 mls/hr Documented by: [id number] Cosigned by: [id number] Titration: 04/12/19 00:56 Dose: 1,350 units/hr, 27 mls/hr Documented by: [id number] Cosigned by: [id number] Titration: 04/11/19 23:58 Dose: 0 units/hr, 0 mls/hr Documented by: [id number] Cosigned by: [id number] Titration: 04/11/19 23:18 Dose: 0 units/hr, 0 mls/hr Documented by: [id number] Cosigned by: [id number] Titration: 04/11/19 23:16 Dose: 0 units/hr, 0 mls/hr Documented by: [id number] Cosigned by: [id number] Titration: 04/11/19 18:30 Dose: 0 units/hr, 0 mls/hr Documented by: [id number] Cosigned by: [id number] Admin: 04/11/19 16:34 Dose: 1,500 units/hr, 30 mls/hr Documented by: [id number] Cosigned by: [id number] Titration: 04/11/19 16:31 Dose: 1,500 units/hr, 30 mls/hr Documented by: [id number] Cosigned by: [id number] Titration: 04/11/19 11:20 Dose: 1,500 units/hr, 30 mls/hr Documented by: [id number] Cosigned by: [id number] Titration: 04/11/19 07:00 Dose: 1,250 units/hr, 25 mls/hr Documented by: [id number] Cosigned by: [id number] Titration: 04/11/19 02:52 Dose: 1,250 units/hr, 25 mls/hr Documented by: [id number] Cosigned by: [id number] Titration: 04/10/19 23:09 Dose: 1,000 units/hr, 20 mls/hr Documented by: [id number] Cosigned by: [id number] Admin: 04/10/19 20:12 Dose: 1,000 units/hr, 20 mls/hr Documented by: [id number] Cosigned by: [id number] Pantoprazole Sodium 40 mg/ (Dextrose) 100 mls @ 20 mls/hr IV Q5H [facility] Stop: 05/12/19 06:44 Last Admin: 04/13/19 08:26 Dose: 20 mls/hr Documented by: [id number] Infusion: 04/13/19 08:00 Dose: 20 mls/hr Documented by: [id number] Admin: 04/13/19 03:00 Dose: 20 mls/hr Documented by: [id number] Infusion: 04/13/19 02:48 Dose: 20 mls/hr Documented by: [id number] Admin: 04/12/19 21:48 Dose: 20 mls/hr Documented by: [id number] Infusion: 04/12/19 21:45 Dose: 20 mls/hr Documented by: [id number] Admin: 04/12/19 16:45 Dose: 20 mls/hr Documented by: [id number] Infusion: 04/12/19 15:55 Dose: 20 mls/hr Documented by: [id number] Admin: 04/12/19 10:55 Dose: 20 mls/hr Documented by: [id number] Infusion: 04/12/19 10:55 Dose: 20 mls/hr Documented by: [id number] Admin: 04/12/19 07:13 Dose: 20 mls/hr Documented by: [id number] Sodium Chloride (Nss 1000ml) 1,000 mls @ 110 mls/hr IV .Q9H6M [facility] Stop: 05/12/19 09:14 Last Admin: 04/13/19 08:28 Dose: Not Given Documented by: [id number] Admin: 04/13/19 08:28 Dose: Not Given Documented by: [id number] Infusion: 04/13/19 06:38 Dose: 110 mls/hr Documented by: [id number] Admin: 04/13/19 06:38 Dose: 110 mls/hr Documented by: [id number] Admin: 04/12/19 21:52 Dose: 110 mls/hr Documented by: [id number] Potassium Phosphate 30 mmol/ (Sodium Chloride) 510 mls @ 100 mls/hr IV ONE ONE Stop: 04/13/19 11:35 Last Admin: 04/13/19 06:39 Dose: 100 mls/hr Documented by: [id number] PG Care Time/CCT Total # of Minutes Spent Total Time Spent with Patient: Total time spent is greater than 50% in coordination of care (as documented) at patient's floor/unit and/or counseling patient: Resident Activity Tracking Resident Involvement: Resident Care Provided Care Provided: Adult Hospital Medicine (ICU) (1) GI bleed GI bleed type/associated pathology: unspecified gastrointestinal hemorrhage type Qualified Code(s): K92.2 - Gastrointestinal hemorrhage, unspecified (2) Pulmonary embolism Acute cor pulmonale presence: unspecified Chronicity: unspecified Pulmonary embolism type: unspecified Qualified Code(s): I26.99 - Other pulmonary embolism without acute cor pulmonale
[2019-04-13 08:13] LABS: Partial Thromboplastin Time 26.1 Seconds (21.0-31.0)
[2019-04-13] MEDS: HEPARIN SODIUM/DEXTROSE 25,000 UNITS/500 ML BAG IV SCH (08:27)
[2019-04-13] MEDS: FERROUS SULFATE 325 MG TAB PO SCH (08:32)
[2019-04-13 09:19] LABS: Hematocrit (blood only) 24.5 % (37-47); Hemoglobin 8.4 g/dL (12.0-16.0)
--- NOTE | 2019-04-13 09:49 | Progress Note ---
DATE: 04/13/2019 DIAGNOSES: 1. Active upper gastrointestinal bleeding. 2. 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 3. 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 4. Iron deficiency anemia. 5. Hemoccult positive stools. 6. Infiltration of the anticoagulant (right forearm). SUBJECTIVE: The patient was seen and examined at bedside today. She was mentally brighter. She feels much better today. I have asked the managing resident about advancing her diet moving forward. She reports no hematemesis overnight. Her pain is well controlled. I received a preliminary call from Pathology indicating her tumor may indeed be a metastatic extension from her original tumor. That said, I may ask Radiation Oncology to perhaps provide palliative RT to both of these lesions to minimize the risk of bleeding moving forward. Additionally, the patient has expressed desire to fight on and will consider a salvage chemotherapeutic regimen once she is medically stable to do so. According to nursing, her PTT remains quite high. There is no current anticoagulation. OBJECTIVE: GENERAL: A very pleasant 84-year-old female patient, awake, alert and appropriate, in no acute distress. VITAL SIGNS: Temperature 36.7, pulse 65, blood pressure 114/50. SKIN: Without rash or lesion. HEENT: Oral mucosa without erythema or ulceration. HEART: Regular rate and rhythm. LUNGS: Clear to auscultation. ABDOMEN: Soft, nontender, nondistended. EXTREMITIES: No clubbing, cyanosis or edema. NEUROLOGICAL: Grossly intact. LABORATORY DATA: WBC count 7140, hemoglobin 8.2, platelet count 152,000. PTT as of 4:00 this morning 26.1 seconds. Sodium 137, potassium 3.1, chloride 104, carbon dioxide 28, creatinine 0.55. IMPRESSION: 1. Active upper gastrointestinal bleeding. 2. Recurrent pulmonary embolus following direct oral thrombin inhibition. 3. 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 4. Iron deficiency anemia. 5. Hemoccult positive stools. 6. Infiltration of the administered anticoagulant (heparin). PLAN: Moving forward engaged in a lengthy discussion with the patient this morning. I am very happy to see she is feeling much better. It appears her PTT has returned to normal. At some point need to make decision regarding anticoagulation, perhaps slow heparin drip with conversion to Coumadin while monitoring her H and H carefully. I will also ask Radiation Oncology to look into palliative radiation to both of these lesions to reduce further bleeding risk. I was contacted by the pathologist yesterday indicating that her most recent biopsy is consistent with metastatic colorectal cancer and not a primary pancreatic neoplasia. That said, if confirmed, we will plan to proceed with an irinotecan based combination chemotherapy if the patient desires to do so. Obviously, she needs to become medically stable before moving forward. We will continue to follow her during her hospital stay. I also asked the managing resident to advance her diet unless there are scheduled procedures for today. Again, thank you very much for assisting on the care of this very pleasant lady. MERI
--- NOTE | 2019-04-13 16:56 | Hospitalist Progress Note ---
Date of Service April 13, 2019 Assessment & Plan (1) Bilateral pulmonary embolism: Patient is an 84 yo woman with a PMHx of adenocarcinoma of the colon and massive PE in 2018 on Xarelto who was sent to the ED by her oncologist for L sided pulmonary emboli visualized on routine Chest CT for surveillance of previous colon cancer ED Course: On arrival patient was found to be anemic with a hgb of 8.6 (down from 13.1 in 01/2019). Hemoccult stool + on admission and on outpatient stool cards from 03/29. Started on IV heparin drip for the pulmonary emboli. Protonix drip was started. A CT Abd/pel scan was ordered, showing likely metastatic progression of adenocarcinoma to the pancreas and stomach. Pulmonary Emboli-asymptomatic, hemodynamically stable. Not hypoxic, mild tachycardia which is now improved and likely more due to anemia and GI bleeding as below -involving segmental and subsegmental branches of the left upper lobe - Patient has a history of massive PE in 2018 and has been anticoagulated on Xarelto since that time; INR 1.1 on admission -New PE likely secondary to new cancerous disease (hypercoagulable state) - Discussed case with radiologist, who confirmed that emboli are acute rather than chronic (from massive PE in 2018) -Has a history of IVC filter which was removed in 08/2018 -We will check venous Dopplers-if has DVT, may be a candidate for IVC filter given massive bleeding and then would not anticoagulate -Was started initially on heparin gtt but then placed on hold for coagulopathy and for massive GI bleeding -Discontinued Xarelto -Appreciate hematology/oncology consultation-plan is possibly to eventually convert to Coumadin once per all procedures and GI bleeding resolved, but may be too high risk to continue anticoagulation -May need IVC filter as above (2) Colon adenocarcinoma: Adenocarcinoma of Colon/pancreatic masses infiltrating into the stomach and duodenum -Colon CA originally diagnosed in September 2017 s/p resection and chemotherapy (last infusion Apr 2018) - colonoscopy in December 2018 showed no recurrence - Report of CT A/P on admission: Significant interval progression of disease with multiple upper abdominal sites of metastases, which may represent parenchymal metastases to the pancreas and stomach versus peritoneal implants versus lymphadenopathy. This predominantly affects the pancreas and peripancreatic regions as well as along the serosa of the splenic flexure and serosa of the stomach in multiple locations. Notably, the largest pancreatic or peripancreatic lesions directly erodes the gastric antrum. With masses in and around the pancreas invading into the stomach-consulted GI EGD on 04/11 showed mass in the stomach and the duodenum, biopsies taken -Concern for new primary given atypical appearance for metastatic colon cancer--> prelim path report as per GI's discussion with Pathology is a poorly differentiated adenocarcinoma that does not appear to be from the colon--> likely a new primary, possibly pancreatic CA CEA normal CA 19-9 pending Await final pathology results -Appreciate oncology consultation-may offer Palliative chemo however with discussion with Palliative Care--> pt may opt for no treatment and to go on hospice (3) Anemia: Acute blood loss anemia Anemia with positive hemoccult stools/GI bleed - hgb 8.6 on admission, down from 13.1 in 01/2019 - iron level low at 31 on 03/25/19; on IV and oral supplementation as an outpatient prior to admission - etiology likely secondary to iron deficiency as per outpatient workup, secondary to blood loss due to occult GI bleed from stomach and duodenum tumors -Repeat hemoglobin on next day up to 9.2 -on AM of 04/12, pt had massive hematemesis of approximately 1000mL blood and systolic BP 68 --> responded to IVF bolus Hgb dropped to 6.7 and PTT was >139 persistently, likely secondary to infiltrated heparin gtt from day previous (absorbed SQ perhaps?) -transferred to ICU, given FFP x4 units, PRBCs x2 units -Hemoglobin down to 6.7 after 1 unit PRBCs and now up and stable at 8.2 -No further bleeding since 04/12 -continue PPI gtt and convert to Protonix 40 mg p.o. twice daily tomorrow -We will check daily CBCs unless has evidence of more bleeding -transfuse to keep hgb>8 -no GI intervention here will likely be beneficial -no IR available-pt has chosen to NOT be transferred to tertiary care facility -no anticoagulation at this time -Her diet has been advanced to regular by critical care team (4) GI bleed: as above, secondary to gastric and duodenal tumors (5) Pancreatic mass: as above path pending from biopsies, poorly differentiated adenocarcinoma--> possibly pancreatic (6) Acute blood loss anemia: as above (7) Hemorrhagic shock: as above, with BP briefly in the 60s systolic from acute blood loss -transfusing PRBCs, FFP, and gave crystalloid fluids BPs now improved (8) Hypokalemia: Potassium 3.1 today -Replaced with potassium phosphate IV -Follow BMP in the morning (9) Hypophosphatemia: Phosphorus low at 1.9 today -Replaced with IV potassium phosphate -Follow phosphorus level in the morning (10) DVT prophylaxis: Heparin gtt now stopped Dispo-stable for downgrade to medical floor with telemetry Changed CODE status to DNR/DNI after lengthy discussion Palliative Care involved-appreciate consultation Subjective Patient feeling much better today. Has some decreased appetite but no abdominal pain. Denies chest pain or shortness of breath, denies lightheadedness. Denies diarrhea but did have one bowel movement that had dark stool but says she always does when she takes iron pills. Telemetry with normal sinus rhythm with rates in the 60s Blood pressures have been improved today No bleeding from anywhere. I discussed her care with the trust officer and she is stable for transfer out of the ICU Review of Systems Review of Systems: All systems reviewed & are unremarkable except as noted in HPI & below Physical Exam Constitutional: WD/WN, vitals as above Eyes: + anicteric sclerae Neck: trachea midline, no thyromegaly Respiratory: normal respiratory effort, lungs clear to auscultation Cardiovascular: RRR, no murmur, no edema Gastrointestinal (Abdomen): normal bowel sounds, soft, nontender, no hepatosplenomegaly Musculoskeletal: Extremities: extremities normal to inspection; no cyanosis and no clubbing Skin: no rashes, warm and dry Neurologic: moves all extremities and awake; no focal motor deficits Psychiatric: A+Ox3, euthymic affect Results & Data Vital Signs (Past 12 Hours) Vital Signs Pulse Resp BP Pulse Ox 04/13/19 11:01 64 26 H 110/49 L 100 04/13/19 10:00 67 24 116/51 L 100 04/13/19 09:35 65 17 107/39 L 98 04/13/19 09:01 65 15 107/39 L 100 04/13/19 08:01 64 15 97/46 L 100 04/13/19 06:00 65 7 L 114/50 L 97 04/13/19 05:00 68 14 114/53 L 100 Laboratory Results 04/13/19 04/13/19 04/13/19 Range/Units 09:06 03:59 03:59 WBC (4.8-10.8) K/uL RBC (4.2-5.4) M/uL Hgb 8.4 L (12.0-16.0) g/dL Hct 24.5 L (37-47) % MCV (80-100) fL MCH (25-34) pg MCHC (32-36) g/dL RDW Std Deviation (36.4-46.3) fL RDW Coeff of Chandrika (11.5-14.5) % Plt Count (130-400) K/uL MPV (7.4-10.4) fL Immature Gran % (Auto) % Neut % (Auto) % Lymph % (Auto) % Power % (Auto) % Eos % (Auto) % Baso % (Auto) % Immature Gran # (Auto) (0.00-0.02) K/uL Neut # (Auto) (1.4-6.5) K/uL Lymph # (Auto) (1.2-3.4) K/uL Power # (Auto) (0.11-0.59) K/uL Eos # (Auto) (0-0.5) K/uL Baso # (Auto) (0-0.2) K/uL PT 11.2 (9.0-12.0) Seconds INR 1.1 (0.9-1.1) APTT 26.1 (21.0-31.0) Seconds PTT Ratio 1.0 Sodium (136-145) mmol/L Potassium (3.5-5.1) mmol/L Chloride (98-107) mmol/L Carbon Dioxide (21-32) mmol/L Anion Gap (3-11) BUN (7-18) mg/dl Creatinine (0.6-1.2) mg/dl Est Cr Clr Drug Dosing ml/min Est GFR ( Amer) Est GFR (Non-Af Amer) BUN/Creatinine Ratio (10-20) Glucose (70-99) mg/dl Calcium (8.5-10.1) mg/dl Phosphorus (2.5-4.9) mg/dl Magnesium (1.8-2.4) mg/dl Blood Type Antibody Screen Crossmatch 04/13/19 04/13/19 04/12/19 Range/Units 03:59 03:59 22:09 WBC 7.14 (4.8-10.8) K/uL RBC 2.69 L (4.2-5.4) M/uL Hgb 8.2 L 8.3 L (12.0-16.0) g/dL Hct 23.8 L 24.2 L (37-47) % MCV 88.5 D (80-100) fL MCH 30.5 (25-34) pg MCHC 34.5 (32-36) g/dL RDW Std Deviation 57.9 H (36.4-46.3) fL RDW Coeff of Chandrika 17.9 H (11.5-14.5) % Plt Count 152 (130-400) K/uL MPV 9.5 (7.4-10.4) fL Immature Gran % (Auto) 0.3 % Neut % (Auto) 75.2 % Lymph % (Auto) 15.0 % Power % (Auto) 8.1 % Eos % (Auto) 1.3 % Baso % (Auto) 0.1 % Immature Gran # (Auto) 0.02 (0.00-0.02) K/uL Neut # (Auto) 5.37 (1.4-6.5) K/uL Lymph # (Auto) 1.07 L (1.2-3.4) K/uL Power # (Auto) 0.58 (0.11-0.59) K/uL Eos # (Auto) 0.09 (0-0.5) K/uL Baso # (Auto) 0.01 (0-0.2) K/uL PT (9.0-12.0) Seconds INR (0.9-1.1) APTT (21.0-31.0) Seconds PTT Ratio Sodium 137 (136-145) mmol/L Potassium 3.1 L D (3.5-5.1) mmol/L Chloride 104 (98-107) mmol/L Carbon Dioxide 28 (21-32) mmol/L Anion Gap 5.0 (3-11) BUN 10 (7-18) mg/dl Creatinine 0.55 L (0.6-1.2) mg/dl Est Cr Clr Drug Dosing 68.1 ml/min Est GFR ( Amer) 101.2 Est GFR (Non-Af Amer) 87.4 BUN/Creatinine Ratio 18.3 (10-20) Glucose 98 (70-99) mg/dl Calcium 7.8 L (8.5-10.1) mg/dl Phosphorus 1.9 L (2.5-4.9) mg/dl Magnesium 1.8 (1.8-2.4) mg/dl Blood Type Antibody Screen Crossmatch 04/12/19 04/10/19 Range/Units 17:48 18:12 WBC (4.8-10.8) K/uL RBC (4.2-5.4) M/uL Hgb 6.7 L* (12.0-16.0) g/dL Hct 20.1 L* (37-47) % MCV (80-100) fL MCH (25-34) pg MCHC (32-36) g/dL RDW Std Deviation (36.4-46.3) fL RDW Coeff of Chandrika (11.5-14.5) % Plt Count (130-400) K/uL MPV (7.4-10.4) fL Immature Gran % (Auto) % Neut % (Auto) % Lymph % (Auto) % Power % (Auto) % Eos % (Auto) % Baso % (Auto) % Immature Gran # (Auto) (0.00-0.02) K/uL Neut # (Auto) (1.4-6.5) K/uL Lymph # (Auto) (1.2-3.4) K/uL Power # (Auto) (0.11-0.59) K/uL Eos # (Auto) (0-0.5) K/uL Baso # (Auto) (0-0.2) K/uL PT (9.0-12.0) Seconds INR (0.9-1.1) APTT (21.0-31.0) Seconds PTT Ratio Sodium (136-145) mmol/L Potassium (3.5-5.1) mmol/L Chloride (98-107) mmol/L Carbon Dioxide (21-32) mmol/L Anion Gap (3-11) BUN (7-18) mg/dl Creatinine (0.6-1.2) mg/dl Est Cr Clr Drug Dosing ml/min Est GFR ( Amer) Est GFR (Non-Af Amer) BUN/Creatinine Ratio (10-20) Glucose (70-99) mg/dl Calcium (8.5-10.1) mg/dl Phosphorus (2.5-4.9) mg/dl Magnesium (1.8-2.4) mg/dl Blood Type A Negative Antibody Screen NEGATIVE Crossmatch See Detail PG Care Time/CCT Total # of Minutes Spent Total Time Spent with Patient: Total time spent is greater than 50% in coordination of care (as documented) at patient's floor/unit and/or counseling patient: (1) GI bleed GI bleed type/associated pathology: unspecified gastrointestinal hemorrhage type Qualified Code(s): K92.2 - Gastrointestinal hemorrhage, unspecified
--- NOTE | 2019-04-13 20:45 | Ultrasound Report ---
US venous doppler LE BI CLINICAL HISTORY: Pulmonary embolism. Hemorrhage. Possible DVT. COMPARISON STUDY: 09/12/2017 FINDINGS: Confluent grayscale Doppler spectral waveform was performed. On the right, no intraluminal thrombus was visualized. The common femoral superficial femoral poplite al and proximal trifurcation veins appear patent. On the left no thrombus visualized within the common femoral or superficial femoral veins. There is a superficial thrombus within the lesser saphenous vein. There is thrombus within the left popliteal v ein. There is probable peroneal vein thrombus. IMPRESSION: 1. Left popliteal vein DVT. In addition there is superficial thrombus within the left lesser saphenou s vein. 2. No evidence of right lower extremity DVT Electronically signed by: Bon Escalante M.D. 04/13/2019 8:44 PM
[2019-04-14] MEDS: PANTOprazole 40 MG in DEXTROSE 5% 100 ML IV SCH ×4 (04:08→19:45)
[2019-04-14 06:23] LABS: Basophils # (auto) 0.03 K/uL (0-0.2); Basophils % (auto) 0.4 %; Eosinophils # (auto) 0.37 K/uL (0-0.5); Eosinophils % (auto) 5.1 %; Hematocrit (blood only) 27.6 % (37-47); Hemoglobin 9.1 g/dL (12.0-16.0); Immature Granulocytes # (auto) 0.01 K/uL (0.00-0.02); Immature Granulocytes % (auto) 0.1 %; Lymphocytes # (auto) 1.02 K/uL (1.2-3.4); Mean Corpuscular Hemoglobin 29.6 pg (25-34); Mean Corpuscular Volume 89.9 fL (80-100); Mean Platelet Volume 9.9 fL (7.4-10.4); Monocytes % (auto) 6.9 %; Neutrophils # (auto) 5.34 K/uL (1.4-6.5); Neutrophils % (auto) 73.5 %; Platelet Count 164 K/uL (130-400); RDW Coefficient of Variation 17.5 % (11.5-14.5); Red Blood Count 3.07 M/uL (4.2-5.4); White Blood Count 7.27 K/uL (4.8-10.8)
[2019-04-14 06:56] LABS: Albumin Level 2.7 gm/dl (3.4-5.0); BUN Creatinine Ratio 8.5 (10-20); Calcium 8.7 mg/dl (8.5-10.1); Creatinine Clr Calc Pharmacy 61.4 ml/min; Est GFR (African American) 97.8; Est GFR (Non-African American) 84.4; Potassium 3.4 mmol/L (3.5-5.1)
[2019-04-14 06:59] LABS: Albumin Globulin Ratio 0.8 (0.9-2); Bilirubin,Total 0.4 mg/dl (0.2-1); Globulin 3.3 gm/dl (2.5-4.0)
[2019-04-14] MEDS: FERROUS SULFATE 325 MG TAB PO SCH (08:32)
[2019-04-14] MEDS ORDERED: POTASSIUM CHLORIDE 20 MEQ TABCR PO STA (09:14)
--- NOTE | 2019-04-14 13:09 | Progress Note ---
DATE: 04/14/2019 MEDICAL ONCOLOGY PROGRESS NOTE DIAGNOSES: 1. Upper gastrointestinal bleeding. 2. 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 3. 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 4. Iron deficiency anemia. 5. Hemoccult positive stools. 6. Infiltration of the anticoagulant into the right forearm. SUBJECTIVE: Ruth was seen and examined at bedside. Multiple family members present. She remains mentally bright and overall feels relatively well; however, pointed out some mild nausea after resuming diet yesterday. I also spoke to Dr. Bautista this morning regarding possible Arlene filter and palliative radiation therapy to ameliorate bleeding from the metastatic deposits. Nursing offers no overnight difficulties. Overall, Ruth is making strides and holding her hemoglobin stable. OBJECTIVE: GENERAL: A very pleasant 84-year-old female patient in no acute distress. VITAL SIGNS: Temperature 36.8, pulse 62, respiratory rate 18, blood pressure 129/73. SKIN: Without rash or lesion. HEENT: Oral mucosa without erythema or ulceration. NECK: Supple. HEART: Regular rate and rhythm. LUNGS: Clear to auscultation bilaterally. ABDOMEN: Soft, nontender, nondistended, without palpable hepatosplenomegaly. EXTREMITIES: No calf tenderness or swelling. No clubbing, cyanosis or edema. NEUROLOGICAL: Grossly intact. LABORATORY DATA: WBC count 7270, hemoglobin 9.1, platelet count 164,000. Sodium 135, potassium 3.4, chloride 103, carbon dioxide 25, creatinine 0.61, BUN 5. IMPRESSION: 1. Upper gastrointestinal bleeding. 2. Recurrent pulmonary embolus following a direct oral thrombin inhibition. 3. Suspected metastatic versus new primary carcinoma. 4. Iron deficiency anemia. 5. Hemoccult positive stools. 6. Infiltration of administered anticoagulant (heparin). PLAN: I had a chance to visit with Ruth and family members again this morning. Part of the discussion centered around my strategy moving forward regarding her bleeding and reincorporation of anticoagulation. I have asked Dr. Bautista to order Radiation Oncology consult to look into a 5-10 fractions of palliative RT to lessen the risk of further bleeding. At some point I would like to get her back on low dose anticoagulation, most likely in the form of Coumadin, which is readily reversible. Await final pathology report to determine how to approach her therapeutically. Preliminary indications are that the lesions in question are colonic in origin. Lastly, discussed the utility of a [place] filter which quite frankly I am not terribly enthusiastic to do so. The patient already has active pulmonary embolus. I am not sure putting a filter in would reduce her risk significantly of from massive pulmonary embolus. In my estimation, [place] filters are known to be thrombogenic when placed. Thus, I feel the better part of valor would be to proceed with radiation in the hopes of minimizing further bleeding, place her back on appropriate anticoagulation and plan on salvage chemotherapy moving forward. My intentions were discussed with Ruth and family members in detail this morning. They appear to be on board and wished to proceed as above. Thank you again for allowing me to participate in her care.
--- NOTE | 2019-04-14 16:15 | Hospitalist Progress Note ---
Date of Service April 14, 2019 Assessment & Plan (1) Bilateral pulmonary embolism: Patient is an 84 yo woman with a PMHx of adenocarcinoma of the colon and massive PE in 2018 now on Xarelto who was sent to the ED by her oncologist for L sided pulmonary emboli visualized on routine Chest CT for surveillance of previous colon cancer ED Course: On arrival patient was found to be anemic with a hgb of 8.6 (down from 13.1 in 01/2019). Hemoccult stool + on admission and on outpatient stool ca rds from 03/29. Started on IV heparin drip for the pulmonary emboli. Protonix drip was started. A CT Abd/pel scan was ordered, showing likely metastatic progression of adenocarcinoma to the pancreas and stomach. Pulmonary Emboli-asymptomatic, hemodynamically stable. Not hypoxic, mild tachycardia which is now improved and likely more due to anemia and GI bleeding as below -involving segmental and subsegmental branches of the left upper lobe - Patient has a history of massive PE in 2018 and has been anticoagulated on Xarelto since that time; INR 1.1 on admission -New PE likely secondary to new cancerous disease (hypercoagulable state) - Discussed case with radiologist, who confirmed that emboli are acute rather than chronic (from massive PE in 2018) -Has a history of IVC filter which was removed in 08/2018 -venous Dopplers lower extremities show DVT Left popliteal vein--> question if may be a candidate for IVC filter given massive bleeding and then would not a nticoagulate -Oncology is not really in favor of IVC filter placement, but will await Vascular Consultation and pt will decide if wants to proceed with filter -will make NPO after midnight just in case of procedure tomorrow -Was started initially on heparin gtt but then placed on hold for coagulopathy and for massive GI bleeding as below -Discontinued Xarelto from home upon admission given failure of treatment -Appreciate hematology/oncology consultation-plan is possibly to begin Coumadin once per all procedures and GI bleeding resolved, but may be too high risk to continue anticoagulation (2) Colon adenocarcinoma: Adenocarcinoma of Colon/pancreatic masses infiltrating into the stomach and duodenum -Colon CA originally diagnosed in September 2017 s/p resection and chemotherapy (last infusion Apr 2018) with positive spread to lymph nodes at that time - colonoscopy in December 2018 showed no recurrence locally - Report of CT A/P on admission: Significant interval progression of disease with multiple upper abdominal sites of metastases, which may represent parenchymal metastases to the pancreas and stomach versus peritoneal implants versus lymphadenopathy. This predominantly affects the pancreas and peripancreatic regions as well as along the serosa of the splenic flexure and serosa of the stomach in multiple locations. Notably, the largest pancreatic or peripancreatic lesions directly erodes the gastric antrum. With masses in and around the pancreas invading into the stomach-consulted GI EGD on 04/11 showed mass in the stomach and the duodenum, biopsies taken -As per Oncology discussion with Pathologist-> poorly differentiated adenocarcinoma that may be from the colon--> but could be a new primary CEA normal but was not elevated at time of colon CA diagnosis either CA 19-9 pending Await final pathology results -Appreciate oncology consultation-will offer Palliative chemo and recommends consult with Rad Onc to see about treating with some low dose XRT to prevent bleeding recurrence (3) Anemia: Acute blood loss anemia Anemia with positive hemoccult stools/GI bleed - hgb 8.6 on admission, down from 13.1 in 01/2019 - iron level low at 31 on 03/25/19; on IV and oral supplementation as an outpatient prior to admission - etiology likely secondary to iron deficiency as per outpatient workup, secondary to blood loss due to occult GI bleed from stomach and duodenum tumors -Repeat hemoglobin on next day up to 9.2 -on AM of 04/12, pt had massive hematemesis of approximately 1000mL blood and systolic BP 68 --> responded to IVF bolus Hgb dropped to 6.7 and PTT was >139 persistently, likely secondary to infilt rated heparin gtt from day previous (absorbed SQ perhaps?) -transferred to ICU, given FFP x4 units, PRBCs x2 units -Hemoglobin down to 6.7 after 1 unit PRBCs and now up and stable at 9.1 -No further bleeding since 04/12 -will now convert PPI gtt to Protonix 40 mg p.o. twice daily tomorrow -check daily CBCs unless has evidence of more bleeding -transfuse to keep hgb>8 -no GI intervention here will likely be beneficial -no IR available-pt has chosen to NOT be transferred to tertiary care facility -no anticoagulation at this time -Her diet has been advanced to regular and is having some nausea likely from gastric tumor -continue FeSO4 daily (4) GI bleed: as above, secondary to gastric and duodenal tumors (5) Pancreatic mass: as above path pending from biopsies, poorly differentiated adenocarcinoma--> possibly colon vs pancreatic (6) Acute blood loss anemia: as above (7) Hemorrhagic shock: as above, with BP briefly in the 60s systolic from acute blood loss -transfused PRBCs, FFP, and gave crystalloid fluids BPs now much improved (8) Hypokalemia: Potassium 3.4 today -Replaced with po KCl -Follow BMP in the morning (9) Hypophosphatemia: Phosphorus low at 1.9 previously and replaced (10) Acute DVT (deep venous thrombosis): Left popliteal vein DVT on Doppler see discussion above -no anticoagulation for now give massive GI bleeding from tumor -considering IVC filter as above -Oncology hopes to start coumadin at some point (11) DVT prophylaxis: Heparin gtt now stopped No SCDs due to DVT LLE Dispo-continued stay on medical floor with telemetry; possible dc to home on Monday after decision about possible IVC filter made and if hgb remains stable and no further GI bleeding. Also, awaiting Rad Onc consultation Monday Very independent, no rehab placement needed DNR/DNI Palliative Care involved-appreciate consultation Subjective Pt feeling fairly well. Having some nausea with eating which was worsened by trying to drink cappuccino today. Feels full quickly. Denies any vomiting. Had a loose dark stool x 1 today. No abdominal pain. No lightheadedness, no chest pain or SOB. I discussed her case with Dr. Swift of Oncology. Tele with NSR, rates 60s Review of Systems Review of Systems: All systems reviewed & are unremarkable except as noted in HPI & below Physical Exam Constitutional: WD/WN, vitals as above (sitting in chair at bedside) Eyes: + anicteric sclerae ENMT: external ear and nose normal, oropharynx normal Neck: trachea midline, no thyromegaly Respiratory: normal respiratory effort, lungs clear to auscultation Cardiovascular: RRR, no murmur, no edema Gastrointestinal (Abdomen): normal bowel sounds, soft, nontender, no hepatosplenomegaly Musculoskeletal: Extremities: extremities normal to inspection; no cyanosis and no clubbing Skin: no rashes, warm and dry Neurologic: moves all extremities and awake; no focal motor deficits Psychiatric: A+Ox3, euthymic affect Results & Data Vital Signs (Past 12 Hours) Vital Signs Temp Pulse Resp BP Pulse Ox 04/14/19 15:00 36.8 C 58 L 18 138/71 100 04/14/19 07:57 36.8 C 62 18 129/73 99 Laboratory Results 04/14/19 04/14/19 Range/Units 06:14 06:14 WBC 7.27 (4.8-10.8) K/uL RBC 3.07 L (4.2-5.4) M/uL Hgb 9.1 L (12.0-16.0) g/dL Hct 27.6 L (37-47) % MCV 89.9 (80-100) fL MCH 29.6 (25-34) pg MCHC 33.0 (32-36) g/dL RDW Std Deviation 57.0 H (36.4-46.3) fL RDW Coeff of Chandrika 17.5 H (11.5-14.5) % Plt Count 164 (130-400) K/uL MPV 9.9 (7.4-10.4) fL Immature Gran % (Auto) 0.1 % Neut % (Auto) 73.5 % Lymph % (Auto) 14.0 % [place] % (Auto) 6.9 % Eos % (Auto) 5.1 % Baso % (Auto) 0.4 % Immature Gran # (Auto) 0.01 (0.00-0.02) K/uL Neut # (Auto) 5.34 (1.4-6.5) K/uL Lymph # (Auto) 1.02 L (1.2-3.4) K/uL [place] # (Auto) 0.50 (0.11-0.59) K/uL Eos # (Auto) 0.37 (0-0.5) K/uL Baso # (Auto) 0.03 (0-0.2) K/uL Sodium 135 L (136-145) mmol/L Potassium 3.4 L (3.5-5.1) mmol/L Chloride 103 (98-107) mmol/L Carbon Dioxide 25 (21-32) mmol/L Anion Gap 7.0 (3-11) BUN 5 L D (7-18) mg/dl Creatinine 0.61 (0.6-1.2) mg/dl Est Cr Clr Drug Dosing 61.4 ml/min Est GFR ( Amer) 97.8 Est GFR (Non-Af Amer) 84.4 BUN/Creatinine Ratio 8.5 L (10-20) Glucose 106 H (70-99) mg/dl Calcium 8.7 (8.5-10.1) mg/dl Total Bilirubin 0.4 (0.2-1) mg/dl AST 33 (15-37) U/L ALT 16 (12-78) U/L Alkaline Phosphatase 81 (45-117) U/L Total Protein 6.0 L (6.4-8.2) gm/dl Albumin 2.7 L (3.4-5.0) gm/dl Globulin 3.3 (2.5-4.0) gm/dl Albumin/Globulin Ratio 0.8 L (0.9-2) PG Care Time/CCT Total # of Minutes Spent Total Time Spent with Patient: Total time spent is greater than 50% in coordination of care (as documented) at patient's floor/unit and/or counseling patient: (1) GI bleed GI bleed type/associated pathology: unspecified gastrointestinal hemorrhage type Qualified Code(s): K92.2 - Gastrointestinal hemorrhage, unspecified
[2019-04-15] MEDS: HEPARIN 100 UNIT/ML 5ML FLUSH FLUSH PRN ×2 (05:39→13:35)
[2019-04-15 06:10] LABS: Basophils # (auto) 0.02 K/uL (0-0.2); Basophils % (auto) 0.3 %; Eosinophils # (auto) 0.43 K/uL (0-0.5); Eosinophils % (auto) 6.2 %; Hematocrit (blood only) 28.9 % (37-47); Hemoglobin 9.7 g/dL (12.0-16.0); Immature Granulocytes # (auto) 0.02 K/uL (0.00-0.02); Immature Granulocytes % (auto) 0.3 %; Lymphocytes # (auto) 0.71 K/uL (1.2-3.4); Lymphocytes % (auto) 10.3 %; Mean Corpuscular Hemoglobin 30.1 pg (25-34); Mean Corpuscular Hgb Conc 33.6 g/dL (32-36); Mean Corpuscular Volume 89.8 fL (80-100); Mean Platelet Volume 10.2 fL (7.4-10.4); Monocytes # (auto) 0.41 K/uL (0.11-0.59); Monocytes % (auto) 5.9 %; Neutrophils # (auto) 5.31 K/uL (1.4-6.5); Platelet Count 166 K/uL (130-400); RDW Coefficient of Variation 16.7 % (11.5-14.5); Red Blood Count 3.22 M/uL (4.2-5.4)
[2019-04-15 06:20] LABS: INR 1.1 (0.9-1.1); Partial Thromboplastin Ratio 1.3; Partial Thromboplastin Time 34.7 Seconds (21.0-31.0); Prothrombin Time 11.3 Seconds (9.0-12.0)
[2019-04-15 06:48] LABS: Calcium 8.6 mg/dl (8.5-10.1); Est GFR (African American) 103.1; Potassium 3.2 mmol/L (3.5-5.1)
[2019-04-15] MEDS: FERROUS SULFATE 325 MG TAB PO SCH (08:23)
[2019-04-15] MEDS ORDERED: PANTOprazole 40 MG TAB PO SCH (09:00)
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
--- NOTE | 2019-04-16 10:10 | Discharge Summary ---
Date of Service April 15, 2019 Admission HPI Per Admitting Provider Mrs. 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 Swift. Mrs. Mathias had a Chest CT earlier today (routine cancer surveillance) and was contacted by Dr. Perez's office in the afternoon with the finding of new pulmonary emboli in the left lung. Patient was asymptomatic, denying shortness of breath and rapid heart rate. No missed doses of Xarleto. No prolonged immobility. Non-smoker. ED Course: On arrival patient was found to be anemic with a hgb of 8.6 (down from 13.1 in 01/2019). Hemoccult stool + on admission and on outpatient stool cards from 03/29. Despite anemia with potential GI bleed, patient was given a bolus of IV heparin followed by a heparin drip for the pulmonary emboli. Protonix drip was started. 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 Admission Exam Per Admitting Provider Constitutional: WD/WN, vitals as above + thin; no acute distress Eyes: + conjunctival abnormality (pallor) and + anicteric sclerae ENMT: external ear and nose normal, oropharynx normal Neck: trachea midline Respiratory: normal respiratory effort, lungs clear to auscultation Auscultation: no crackles, no rales, no rhonchi, no wheezes and no pleural rub Cardiovascular: Rate/Rhythm: regular rate and regular rhythm Heart Sounds: normal S1, normal S2 and + murmur (systolic ejection); no click, no gallop and no cardiac rub Palpation: no thrill Vessels: no carotid bruit Gastrointestinal (Abdomen): normal bowel sounds, soft, nontender, no hepatosplenomegaly Inspection/Auscultation: abdomen not distended Percussion/Palpation: no abdominal mass Rectal Exam: + heme positive stool Skin: no rashes, warm and dry Psychiatric: A+Ox3, euthymic affect Principal Diagnosis Left upper lobe pulmonary emboli Low potassium (hypokalemia) Suspected metastatic versus new primary carcinoma Iron deficiency anemia Upper gastrointestinal bleed Discharge Exam Constitutional well developed, well nourished and comfortable; no acute distress and not ill appearing Eyes + anicteric sclerae and PERRL ENMT external ear and nose normal, oropharynx normal Neck normal visual inspection and trachea midline Respiratory normal respiratory effort, lungs clear to auscultation Auscultation: no crackles, no rales and no wheezes Cardiovascular Rate/Rhythm: regular rate and regular rhythm Heart Sounds: normal S1 and normal S2; no murmur Extremities: normal capillary refill Gastrointestinal (Abdomen) Inspection/Auscultation: abdomen normal to inspection and normal bowel sounds; abdomen not distended Percussion/Palpation: abdomen soft; abdomen nontender, no guarding, abdomen not rigid and no abdominal mass Musculoskeletal no cyanosis or clubbing, extremities motor strength 5/5 Skin no rashes, warm and dry Neurologic moves all extremities and awake; no focal motor deficits and not confused Psychiatric Orientation: alert and oriented x 3 Insight: excellent insight Judgement: excellent judgement Discharge Data Allergies Allergy/AdvReac Type Severity Reaction Status Date / Time No Known Allergies Allergy Verified 04/10/19 18:50 Consultations 04/10/19 18:35 ED Decision to Admit Stat 04/10/19 21:34 Consult Hematology Routine 04/11/19 10:48 Consult Gastroenterology Routine 04/12/19 09:00 Consult Case Management - Discharge Planning Routine 04/12/19 09:40 Consult Palliative Care Routine 04/12/19 09:48 Consult Sprayer Machine Routine 04/14/19 09:08 Consult Vascular Surgery Routine 04/14/19 09:11 Consult Radiation Oncology Routine Procedures Performed Operation Date: 04/11/19 17:30 Actual Procedures p EGD Biopsy Cytology(Not Applicable) - Marcos Sarkar Ordered Studies 04/13/19 18:43 US venous doppler LE Urgent Hospital Course (1) Bilateral pulmonary embolism: 84 yo woman with a PMHx of adenocarcinoma of the colon and massive PE in 2018 now on Xarelto who was sent to the ED by her oncologist for L sided pulmonary emboli visualized on routine Chest CT for surveillance of previous colon cancer. She was asymptomatic throughout admission from pulmonary embolism point of view. However she was treated with an IV heparin drip which caused a severe UGI bleed from the gastric and duodenal invasion of a metastatic mass. For this she was treated 2 units of packed RBCs and 4 units fresh frozen plasma. She underwent EGD and biopsies taken with full pathology pending at this time. Primary metastatic disease on CT scans is unknown at this time but preliminary indications are they are colonic in origin. CEA and CA 19-9 were not elevated. She is now hemodynamically stable with hemoglobin 9.7 on discharge while taking pantoprazole 40mg PO BID. Repeat CBC ordered for 04/18. She will follow up with radiation oncology, heme/onc for ongoing management of her metastatic cancer. Plan to possibly start warfarin in the outpatient setting once radiation treatment has helped with bleeding source, this will be discussed by Dr Swift in clinic. She will follow up with gastroenterology regarding the upper GI bleed. (2) Colon adenocarcinoma: (3) Anemia: Total Time Total Time Spent Total Time Spent (In Minutes): 45 Total Time Includes: Examination of the Patient, Discharge Planning and Medication Reconciliation Discharge Plan Discharge Items Patient Disposition: Home - Self-Care Reason For Visit: PULMONARY EMBOLI Discharge Diagnosis: Left upper lobe pulmonary emboli Low potassium (hypokalemia) Suspected metastatic versus new primary carcinoma Iron deficiency anemia Upper gastrointestinal bleed Activity: Resume your previous activity Non-emergency contact: Oncologist Call non-emergency contact if: you have any medication questions, your symptoms worsen and you have a fever Follow-up/Referrals: Jane Gilbert MD [Physician] - Derek Swift DO [Physician] - (Within 2 weeks of discharge) Tegan Persaud MD [Primary Care Provider] - Marcos Sarkar [Physician] - (Within 4 weeks of discharge) Diet: Regular Ambulatory Orders: Complete Blood Count no Diff (Routine) Timeframe: [id number] Location: Determined by Patient Ordered By: Wade Duran Attending Provider Instructions: You were admitted to [facility] from April 10-2018 after a routine follow chest CT scan showed new pulmonary emboli (blood clots in the lung arteries) to the left lung upper lobe despite Xarelto use. Anticoagulation with IV heparin caused severe gastrointestinal bleeding requiring 2 units of re d blood cell blood transfusions and 4 units of fresh frozen plasma. Subsequent upper gastrointestinal endoscopy was concerning for a mass in the stomach and small bowel (duodenum). Complete pathology of these masses are pending at this time and you will follow-up with Dr. Swift in clinic regarding the results of these. You have been started on pantoprazole as prescribed below to reduce the risk of bleeding in the future. This should be continued until following up with Dr. Sarkar (gastroenterology) in clinic. Please repeat lab work as ordered on . Hemoglobin 9.7 on discharge. With regards to the pulmonary emboli, no further anti-coagulation is recommended currently due to severity of gastrointestinal bleed. Please follow-up with Dr. Swift in clinic regarding this. Pending Studies at Discharge: Yes (EGD biopsy pathology) Stand-Alone Forms: [facility], Smoking Cessation Medications and DC Order Prescriptions: New ondansetron 4 mg tablet,disintegrating 4 mg PO Q6H PRN (Reason: nausea and vomiting) Qty: 30 RF: 0 pantoprazole 40 mg Tablet,Delayed Release (Dr/Ec) 40 mg PO BID Qty: 60 RF: 0 Continued docusate sodium [Colace] 100 mg capsule 100 mg PO BID PRN (Reason: Constipation) RF: 0 polyethylene glycol 3350 [Miralax] 17 gram/dose Powder 17 g PO DAILY RF: 0 [employer] 750 mg-100 mg- 1.65 mg-108 mg Tablet 1 tab PO QAM RF: 0 ferrous sulfate 325 mg (65 mg iron) Tablet 325 mg PO QAM RF: 0 Discontinued Xarelto 20 mg Tablet 20 mg PO QPM RF: 0 Discharge Orders: Discharge Order (Routine); Ordered 04/15/19 Ordered By: Wade Price Admission Data Admit Date/Time: 04/10/19 20:09 Attending Provider: Wade Price Admit Provider: Fátima Weinstein Primary Care Provider: Tegan Persaud Other Providers: Niyah Marcano ; Derek Swift V ; Marcos Sarkar ; Taylor Jacobs ; Aureliano Barclay ; Henry Edwards ; Jane Gilbert. Other Interventions: Discharge Summary Assessment (RN) Last Done: 04/15/19 13:06 DC Date/Time DO NOT enter until pt leaves facility: 04/15/19 13:43
--- NOTE | 2019-04-18 14:55 | Coding Query ---
PATHOLOGY To promote full compliance with coding requirements relating to patient care, physician participation is requested in all cases of medical scientist uncertainty. Please assist us with the question(s) below: Please review the Pathology report and please document any relevant diagnosis(es) below. Patient had EGD with biopsies of stomach and duodenum. Thank you ! EVELYN Malik [facility] Diagnosis(es): Metastatic colon adenocarcinoma MTDD
--- NOTE | 2019-04-19 10:11 | Anesthesiology Progress Note ---
Date of Service April 19, 2019 Anesthesia Post Procedure Transfer of Care Handoff Completed per policy Notes Mental Status: alert / awake / arousable Patient Amnestic to Procedure: Yes Nausea / Vomiting: adequately controlled Pain: adequately controlled Airway Patency, RR, SpO2: stable & adequate BP & HR: stable & adequate Hydration State: stable & adequate Anesthetic Complications: no major complications apparent and Pt Satisfied with anesthetic care
== END 2019-04-15 13:43 | disposition home or self-care (01) | DRG 374 ==
LOC: ED 17:07 → SUATTDRO 20:09 → 2S 20:09 → 1E 04-12 08:27 → 2N 04-13 18:41